=== PATIENT | female | born 1940 | race African-American/Black ===

== ENCOUNTER 2017-04-18 13:43 | Inpatient (IN) | payer OTHER, MEDICARE ==
--- NOTE | 2017-04-18 15:14 | PDOC ---
History of Present Illness - General Chief Complaint: Shortness of Breath Stated Complaint: SOB (PCP SENT) Time Seen by Provider: 04/18/17 15:00 - History of Present Illness Initial Comments: 04/18/17 16:02 The patient is a 76 year old female with a history of COPD, HTN who presents from her PCP for admission for COPD exacerbation. The patient reports a several week history of SOB and non-productive cough. She states that she was placed on azithromycin 1 week ago with no improvement in her symptoms prompting her PCP to send her in for admission. The patient reports using her inhaler on a regular basis with minimal improvement as well. She denies fevers, chills, chest pain, abdominal pain, nausea, vomiting, or changes with urination or bowel movements. She denies any increased leg swelling as well. Past History - Past Medical History Allergies/Adverse Reactions: Allergies Allergy/AdvReac Type Severity Reaction Status Date / Time No Known Allergies Allergy Verified 04/18/17 13:55 Home Medications: Ambulatory Orders Albuterol Sulfate Inhaler - [Ventolin Hfa Inhaler -] 1 - 2 inh PO Q4H PRN Amlodipine Besylate [Norvasc -] 10 mg PO DAILY 04/18/17 Benztropine Mesylate [Cogentin -] 1 mg PO DAILY 04/18/17 Diphenhydramine [Benadryl -] 50 mg PO HS 04/18/17 Fluticasone/Salmeterol [Advair 250-50 Diskus] 1 each IH DAILY 04/18/17 Gabapentin 400 mg PO DAILY 04/18/17 Icosapent Ethyl [Vascepa] 2 gm PO BID 04/18/17 Mirabegron [Myrbetriq] 25 mg PO DAILY 04/18/17 Risperidone [Risperdal] 2 mg PO DAILY 04/18/17 Tramadol HCl [Ultram -] 50 mg PO DAILY PRN 04/18/17 Asthma: Yes COPD: Yes HTN: Yes - Suicide/Smoking/Psychosocial Hx Smoking Status: Yes Smoking History: Never smoked Have you smoked in the past 12 months: No Number of Cigarettes Smoked Daily: 5 If you are a former smoker, when did you quit?: 2014 Information on smoking cessation initiated: No Hx Alcohol Use: No Drug/Substance Use Hx: No Substance Use Type: None Review of Systems - Review of Systems Comments:: 12/22/17 16:07 Constitutional: No fevers, chills, fatigue, malaise HEENT: No Rhinorrhea, nasal congestion, Cardiovascular: No chest pain, syncope, palpitations, lightheadedness Respiratory: SOB, cough. No Hemoptysis, Gastrointestinal: No Abdominal pain, Nausea, Vomiting, Constipation, Diarrhea, Melena Genitourinary: No Dysuria, Frequency, Urgency, Hesitancy, Hematuria, Flank pain Musculoskeletal: No Myalgia, arthralgia Skin: No rashes, bruising, pallor Neurologic: No Headache, Dizziness, Numbness, Weakness, or Tingling Psychiatric: No Hallucinations. No SI or HI *Physical Exam - Vital Signs Last Vital Signs Temp Pulse Resp BP Pulse Ox 98.1 F 87 16 116/64 93 L 04/18/17 13:55 04/18/17 13:55 04/18/17 13:55 04/18/17 13:55 04/18/17 13:55 - Physical Exam Comments: 04/18/17 16:08 General Appearance: Nourished. No Apparent Distress HEENT: EOMI, LAKISHA. No Pharyngeal Erythema, Tonsillar Exudate, Tonsillar Erythema Neck: No Cervical Lymphadenopathy Respiratory/Chest: Lungs Clear, Normal Breath Sounds. Diffuse expiratory wheezing noted on exam with bibasilar rales. Cardiovascular: Regular Rhythm, Regular Rate. No Murmur, Gallops, Rubs Gastrointestinal/Abdominal: Normal Bowel Sounds, Soft. No Guarding, Rebound, Tenderness Musculoskeletal: No CVA Tenderness Extremity: No lower extremity edema. Normal Capillary Refill Integumentary: Normal Color, Dry, Warm Neurologic: Fully Oriented, Alert, Normal Mood/Affect, Normal Response, ED Treatment Course - LABORATORY CBC & Chemistry Diagram: 04/18/17 15:59 04/18/17 15:59 Medical Decision Making - Medical Decision Making 04/18/17 16:13 The patient is a 76 year old female with a history of COPD, HTN who presents from her PCP for admission for COPD exacerbation. Differential includes but is not limited to: COPD exacerbation, pneumonia, CHF, infectious, metabolic derangement. Given the patient's history of COPD and physical exam, it is likely the patient's symptoms are due to a COPD exacerbation vs. pneumonia. We will obtain a cbc, cmp, bnp, UA, EKG, chest plain film to further evaluate for etiologies. We will treat with a duoneb, solumedrol, and ceftriaxone. We will continue to monitor and reassess. 04/18/17 18:26 CBC, cmp, BNP is unremarkable. The patient continues to report SOB with O2 sats in the low 90s. Chest plain film does not demonstrate evidence of a pneumonia as read by our radiologist. The patient's symptoms are likely due to a COPD exacerbation. The patient will require admission for further management. 04/18/17 20:00 Discussed the case with the hospitalist team who accepted the patient for admission. *DC/Admit/Observation/Transfer Diagnosis at time of Disposition: COPD exacerbation - Discharge Dispostion Condition at time of disposition: Guarded Admit: Yes - Referrals - Patient Instructions - Post Discharge Activity
[2017-04-18] MEDS ORDERED: ALBUTEROL SO4 2.5/IPRATROPIUM 0.5 INH SOL 3 ML VIAL.NEB. NEB ONE ×4 (15:16→20:59)
[2017-04-18] MEDS ORDERED: methylPREDNISolone NA SUCC 125 MG/2 ML VIAL IVPUSH ONE (15:32)
[2017-04-18] MEDS ORDERED: CEFTRIAXONE 1 GM in DEXTROSE 5%-WATER - 50 ML IVPB ONE (15:32)
[2017-04-18] MEDS ORDERED: methylPREDNISolone NA SUCC 125 MG/2 ML VIAL ONE (15:59)
[2017-04-18] MEDS ORDERED: CEFTRIAXONE 1 GM/50 ML BAG ONE (16:00)
--- NOTE | 2017-04-18 16:09 | PDOC ---
Attending Attestation - Resident Resident Name: ShabnamTravis - ED Attending Attestation I have performed the following: I have examined & evaluated the patient, The case was reviewed & discussed with the resident, I agree w/resident's findings & plan, Exceptions are as noted - HPI HPI: 04/18/17 16:20 76 year old female with history of COPD sent in by Dr. Moran for admission for persistent wheezing and r/o PNA. Pt has been having several weeks of coughing and wheezing despite numerous patient treatments. Has not gotten any better so came into ED. Denies chest pain. - Physicial Exam PE: 04/18/17 16:33 GENERAL: Awake, alert, and fully oriented, in no acute distress. HEAD: No signs of trauma EYES: PERRLA, EOMI, sclera anicteric, conjunctiva clear ENT: Auricles normal inspection, hearing grossly normal, nares patent, oropharynx clear without exudates. NECK: Normal ROM, supple, no lymphadenopathy, JVD, or masses LUNGS: Diffuse expiratory wheezing bilaterally. HEART: Regular rate and rhythm, normal S1 and S2, no murmurs, rubs or gallops ABDOMEN: Soft, nontender, normoactive bowel sounds. No guarding, no rebound. No masses EXTREMITIES: Normal range of motion, no edema. No clubbing or cyanosis. No cords, erythema, or tenderness NEUROLOGICAL: Cranial nerves II through XII grossly intact. Normal speech, normal gait SKIN: Warm, Dry, normal turgor, no rashes or lesions noted. - Medical Decision Making 04/18/17 16:34 Vital Signs Temp Pulse Resp BP Pulse Ox 98.1 F 87 16 116/64 93 L 04/18/17 13:55 04/18/17 13:55 04/18/17 13:55 04/18/17 13:55 04/18/17 13:55 patient most certainly in COPD exacerbation. I agree with r/o PNA and admission to the hospital. Chest xray labs, antibiotics Heart Score/ECG Review #1 ECG reviewed & interpreted by me at: 16:15 04/18/17 16:18 NSR 77, no std/ceci, RBBB, LAFB, QTC 475 msec
[2017-04-18 16:10] LABS: BASO # 0.1 # (0.1-1); BASO % 1.2 % (0-2.0); EOS # 0.5 # (0-4.5); LYMPH # 1.7 (8-40); MCH 30.3 pg (25.7-33.7); MCHC 32.5 g/dl (32.0-36.0); MEAN CELL VOLUME 93.3 fl (80-96); MEAN PLT VOLUME 8.4 fl (7.5-11.1); MONO # 0.5 # (3.8-10.2); NEUT # 2.3 # (42.8-82.8); NEUT % 45.5 % (42.8-82.8); RDW 14.6 % (11.6-15.6); WHITE BLOOD COUNT 5.1 K/mm3 (4.0-10.0)
[2017-04-18 17:48] LABS: ALBUMIN 3.6 g/dl (3.4-5.0); ANION GAP 6 (8-16); BILIRUBIN,TOTAL 0.4 mg/dL (0.2-1.0); CALCIUM 9.4 mg/dL (8.5-10.1); CO2 32 mmol/L (21-32); CREATININE 1.1 mg/dL (0.55-1.02); GLUCOSE,RANDOM 80 mg/dL (74-106); SGOT/AST 9 U/L (15-37); SGPT/ALT 17 U/L (12-78); TOT PROT 6.9 g/dl (6.4-8.2)
[2017-04-18 17:51] LABS: ALK PHOS 74 U/L (45-117); CPK 148 IU/L (26-192); TROPONIN I < 0.02 ng/ml (0.00-0.05)
[2017-04-18 21:05] LABS: PLATELET COUNT 162 K/MM3 (134-434)
--- NOTE | 2017-04-18 21:29 | HP ---
CHIEF COMPLAINT: SOB PCP: Dr. Justice Moran HISTORY OF PRESENT ILLNESS: This is a 76 y/o woman with a past medical history of COPD, Former Smoker. Who presents to the ED sent in by her PCP for admission for COPD Exacerbation. Patient reports having wheezing and a non-productive cough for "weeks". She reports recently completing Azithromycin for 1 week without relief. Patient reports [place] and during normal activities. Patient denies fever. chills. CP, palpitations, AP, N/V/D, dysuria. She reports being constipated x 3 days her- norm requiring mag citrate prn Patient reports having both Influenza and Pneumoccocal Vaccines. ER course was notable for: (1) BNP 800 (2) Chest Xray- no infiltrates (3) EKG- SR 77 bpm with PVCs, RBBB Recent Travel: None PAST MEDICAL HISTORY: COPD CHF Fibromyalgia PAST SURGICAL HISTORY: L-Knee R-Knee Social History: Smokin/2 PPD x 55+ yrs, last use 2015 Alcohol: None Drugs: None Family History: Mother- Alzheimer Grandparents- Breast Ca, Stomach Ca Allergies No Known Allergies Allergy (Verified 04/18/17 13:55) HOME MEDICATIONS: Home Medications Medication Instructions Recorded Albuterol Sulfate Inhaler - 1 - 2 inh PO Q4H PRN 04/18/17 [Ventolin Hfa Inhaler -] Amlodipine Besylate [Norvasc -] 10 mg PO DAILY 04/18/17 Benztropine Mesylate [Cogentin -] 1 mg PO DAILY 04/18/17 Diphenhydramine [Benadryl -] 50 mg PO HS 04/18/17 Fluticasone/Salmeterol [Advair 1 each IH DAILY 04/18/17 250-50 Diskus] Gabapentin 400 mg PO DAILY 04/18/17 Icosapent Ethyl [Vascepa] 2 gm PO BID 04/18/17 Mirabegron [Myrbetriq] 25 mg PO DAILY 04/18/17 Risperidone [Risperdal] 2 mg PO DAILY 04/18/17 Tramadol HCl [Ultram -] 50 mg PO DAILY PRN 04/18/17 REVIEW OF SYSTEMS CONSTITUTIONAL: loss of appetite Absent: fever, chills, diaphoresis, generalized weakness, malaise, weight change HEENT: Absent: rhinorrhea, nasal congestion, throat pain, throat swelling, difficulty swallowing, mouth swelling, ear pain, eye pain, visual changes CARDIOVASCULAR: Absent: chest pain, syncope, palpitations, irregular heart rate, lightheadedness , peripheral edema RESPIRATORY: cough, shortness of breath, dyspnea with exertion, wheezing Absent: stridor, hemoptysis GASTROINTESTINAL: Absent: abdominal pain, abdominal distension, nausea, vomiting, diarrhea, constipation, melena, hematochezia GENITOURINARY: Absent: dysuria, frequency, urgency, hesitancy, hematuria, flank pain, genital pain MUSCULOSKELETAL: Absent: myalgia, arthralgia, joint swelling, back pain, neck pain SKIN: Absent: rash, itching, pallor HEMATOLOGIC/IMMUNOLOGIC: Absent: easy bleeding, easy bruising, lymphadenopathy, frequent infections ENDOCRINE: Absent: unexplained weight gain, unexplained weight loss, heat intolerance, cold intolerance NEUROLOGIC: Absent: headache, focal weakness or paresthesias, dizziness, unsteady gait, seizure, mental status changes, bladder or bowel incontinence PSYCHIATRIC: Absent: anxiety, depression, suicidal or homicidal ideation, hallucinations. PHYSICAL EXAMINATION Vital Signs - 24 hr 04/18/17 04/18/17 13:55 21:02 Temperature 98.1 F 98.9 F Pulse Rate 87 Pulse Rate [ 83 Apical] Respiratory 16 20 Rate Blood Pressure 116/64 Blood Pressure 114/75 [Right Arm] O2 Sat by Pulse 93 L 91 L Oximetry (%) GENERAL: Awake, alert, and fully oriented, in no acute distress. HEAD: Normal with no signs of trauma. EYES: Pupils equal, round and reactive to light, extraocular movements intact, sclera anicteric, conjunctiva clear. No lid lag. EARS, NOSE, THROAT: Ears normal, nares patent, oropharynx clear without exudates. Moist mucous membranes. NECK: Normal range of motion, supple without lymphadenopathy, JVD, or masses. LUNGS: Coarse scattered wheeze, and rhonchi throughout. No accessory muscle use. HEART: Regular rate and rhythm, normal S1 and S2 without murmur, rub or gallop. ABDOMEN: Soft, nontender, not distended, normoactive bowel sounds, no guarding, no rebound, no masses. No hepatomegaly or splenomegaly. MUSCULOSKELETAL: Normal range of motion at all joints. No bony deformities or tenderness. No CVA tenderness. UPPER EXTREMITIES: 2+ pulses, warm, well-perfused. No cyanosis. No clubbing. No peripheral edema. LOWER EXTREMITIES: 2+ pulses, warm, well-perfused. No calf tenderness. No peripheral edema. NEUROLOGICAL: Cranial nerves II-XII intact. Normal speech. Gait not observed. PSYCHIATRIC: Cooperative. Good eye contact. Appropriate mood and affect. SKIN: Warm, dry, normal turgor, no rashes or lesions noted, normal capillary refill. Laboratory Results - last 24 hr 04/18/17 04/18/17 04/18/17 15:59 15:59 15:59 WBC 5.1 D RBC 4.42 Hgb 13.4 Hct 41.2 MCV 93.3 MCH 30.3 MCHC 32.5 RDW 14.6 Plt Count 162 MPV 8.4 Neutrophils % 45.5 D Lymphocytes % 34.3 Monocytes % 10.0 D Eosinophils % 9.0 H Basophils % 1.2 Sodium 138 Potassium 4.1 Chloride 100 Carbon Dioxide 32 Anion Gap 6 L BUN 7 Creatinine 1.1 H D Creat Clearance w eGFR 48.16 Random Glucose 80 Calcium 9.4 Total Bilirubin 0.4 D AST 9 L ALT 17 Alkaline Phosphatase 74 Creatine Kinase 148 Troponin I < 0.02 B-Natriuretic Peptide 893.40 H Cancelled Total Protein 6.9 Albumin 3.6 ASSESSMENT/PLAN: This is a 76 y/o woman with a PMHx of COPD, CHF, HTN. Admitted for COPD Exacerbation secondary to Failed Outpatient Therapy. Problems: 1. Acute COPD Exacerbation 2. CHF 3. HTN FEN - PO Fluids - Replete lytes - Low Na Diet Code Status: Full Code Dispo: Requires Inpatient Care Problem List - Problem (1) COPD exacerbation Assessment/Plan: - s/p Failed Out Patient Therapy - Continue Duonebs - Solumederol taper - Ceftriaxone given in ED - Will start Levofloxacin for pseudomonal coverage - O2 prn - Appreciate Pulm Consult - Monitor vitals - Monitor CBC, BMP - Continue home meds Code(s): J44.1 - CHRONIC OBSTRUCTIVE PULMONARY DISEASE W (ACUTE) EXACERBATION (2) HTN (hypertension) Assessment/Plan: - Controlled - Monitor BP - Continue home med - Monitor renal function Code(s): I10 - ESSENTIAL (PRIMARY) HYPERTENSION (3) Fibromyalgia Assessment/Plan: - Continue home meds Code(s): M79.7 - FIBROMYALGIA (4) Insomnia Assessment/Plan: - Continue Benadryl prn Code(s): G47.00 - INSOMNIA, UNSPECIFIED (5) DVT prophylaxis Assessment/Plan: - OOB - SCDs - Heparin SQ Code(s): [id number] - Visit type - Emergency Visit Emergency Visit: Yes ED Registration Date: 04/18/17 Care time: The patient presented to the Emergency Department on the above date and was hospitalized for further evaluation of their emergent condition. - New Patient This patient is new to me today: Yes Date on this admission: 04/18/17 - Critical Care Critical Care patient: No
[2017-04-18] MEDS ORDERED: ALBUTEROL SO4 2.5/IPRATROPIUM 0.5 INH SOL 3 ML VIAL.NEB. NEB PRN (23:39)
[2017-04-18 23:55] LABS: URINE APPEARANCE SLCLOUDY; URINE BILIRUBIN NEGATIVE (NEGATIVE); URINE BLOOD NEGATIVE (NEGATIVE); URINE COLOR DKYELLOW; URINE GLUCOSE (UA) NEGATIVE (NEGATIVE); URINE KETONE NEGATIVE (NEGATIVE); URINE NITRITE NEGATIVE (NEGATIVE); URINE PROTEIN NEGATIVE (NEGATIVE); URINE UROBILINOGEN NEGATIVE mg/dL (0.2-1.0)
[2017-04-19 00:30] VITALS: BMI 25.7
[2017-04-19 00:36] LABS: URINE LEUK ESTERASE 2+ (NEGATIVE)
[2017-04-19 00:53] LABS: URINE BACTERIA RARE /hpf (NONE SEEN); URINE HYALINE CAST 18 /lpf; URINE MUCUS RARE; URINE WBC 10 /hpf (3-5)
[2017-04-19] MEDS ORDERED: traMADol HCL 50 MG TABLET PO PRN (01:31)
[2017-04-19] MEDS ORDERED: risperiDONE 1 MG TABLET (FP) PO ONE (01:37)
[2017-04-19] MEDS ORDERED: diphenhydrAMINE HCL 25 MG CAPSULE (FP) PO ONE (01:39)
[2017-04-19] MEDS: methylPREDNISolone NA SUCC 40 MG/1 ML VIAL IVPUSH SCH ×4 (02:11→21:00)
[2017-04-19 08:44] LABS: BASO % 0.3 % (0-2.0); EOS % 0.1 % (0-4.5); LYMPH # 0.6 (8-40); MCH 29.7 pg (25.7-33.7); MCHC 31.9 g/dl (32.0-36.0); MEAN CELL VOLUME 93.1 fl (80-96); MEAN PLT VOLUME 8.8 fl (7.5-11.1); MONO # 0.1 # (3.8-10.2); NEUT % 85.6 % (42.8-82.8); PLATELET COUNT 157 K/MM3 (134-434); RDW 14.4 % (11.6-15.6); WHITE BLOOD COUNT 4.7 K/mm3 (4.0-10.0)
[2017-04-19 08:59] LABS: ANION GAP 7 (8-16); CALCIUM 9.3 mg/dL (8.5-10.1); CO2 28 mmol/L (21-32); CREATININE 0.9 mg/dL (0.55-1.02); GLUCOSE,RANDOM 138 mg/dL (74-106)
[2017-04-19] MEDS: HEPARIN NA (PORCINE) 5,000 UNITS/ML 1ML VIAL SQ SCH ×2 (10:03→21:01)
[2017-04-19] MEDS: LEVOFLOXACIN 500 MG IVPB 500 MG/100 ML BAG IVPB SCH (10:03)
[2017-04-19] MEDS: amLODIPine BESYLATE 10 MG TABLET (FP) PO SCH (10:03)
--- NOTE | 2017-04-19 12:08 | PN ---
Progress Note (short form) - Note Progress Note: PULMONARY CONSULTATION DICTATED 04/19/17 IMP DYSPNEA COPD EXACERBATION HTN FIBROMYALGIA ? H/O CHF PLAN IV STEROIDS INHALED BRONCHODILATORS O2 LOW DOSE CHEST CT PFTS OUTPATIENT DR CRISTINA Problem List - Problems (1) COPD exacerbation Code(s): J44.1 - CHRONIC OBSTRUCTIVE PULMONARY DISEASE W (ACUTE) EXACERBATION (2) Fibromyalgia Code(s): M79.7 - FIBROMYALGIA (3) HTN (hypertension) Code(s): I10 - ESSENTIAL (PRIMARY) HYPERTENSION (4) Shortness of breath Code(s): R06.02 - SHORTNESS OF BREATH
[2017-04-19 12:34] LABS: URINE LEUK ESTERASE 1+ (NEGATIVE)
[2017-04-19] MEDS: BUDESONIDE/FORMETEROL FUMARATE 160/4.5 mcg INHALER IH SCH ×2 (13:45→21:01)
[2017-04-19] MEDS: TIOTROPIUM BROMIDE 18 MCG/INH (DEVICE W/ 5 CAPSULES) IH SCH (13:46)
[2017-04-19] MEDS ORDERED: PT OWN MED DRAWER 7, Y5N ONE ×2 (14:10→20:48)
--- NOTE | 2017-04-19 14:59 | PN ---
Progress Note, Physician Chief Complaint: THIS IS MY FIRST ENCOUNTER WITH THIS PATIENT AWAKE ALERT SOB - Current Medication List Current Medications: Active Medications Amlodipine Besylate (Norvasc -) 10 mg PO DAILY [facility] Last Admin: 04/19/17 10:03 Dose: 10 mg Budesonide/Formoterol Fumarate (Symbicort 160/4.5mcg -) 2 puff IH BID [facility] Last Admin: 04/19/17 13:45 Dose: 2 inh Diphenhydramine HCl (Benadryl -) 50 mg PO HS JONAH Gabapentin (Neurontin -) 400 mg PO HS JONAH Heparin Sodium (Porcine) (Heparin -) 5,000 unit SQ BID [facility] Last Admin: 04/19/17 10:03 Dose: 5,000 unit Levofloxacin (Levaquin 500 Mg Premixed Ivpb -) 500 mg in 100 mls @ 100 mls/hr IVPB DAILY [facility] Last Admin: 04/19/17 10:03 Dose: 100 mls/hr Methylprednisolone Sodium Succinate (Solu-Medrol -) 40 mg IVPUSH Q6H-IV [facility] Last Admin: 04/19/17 09:59 Dose: 40 mg Risperidone (Risperdal -) 2 mg PO HS JONAH Tiotropium [place] (Spiriva -) 1 puff IH DAILY [facility] Last Admin: 04/19/17 13:46 Dose: 1 inh Tramadol HCl (Ultram -) 50 mg PO HS PRN PRN Reason: PAIN Stop: 04/20/17 01:30 - Objective Vital Signs: Vital Signs Temperature 98.2 F 04/19/17 09:55 Pulse Rate 89 04/19/17 09:55 Respiratory Rate 24 04/19/17 09:55 Blood Pressure 140/76 04/19/17 09:55 O2 Sat by Pulse Oximetry (%) 95 04/19/17 11:00 Constitutional: Yes: Mild Distress Eyes: Yes: WNL HENT: Yes: WNL Neck: Yes: WNL Cardiovascular: Yes: WNL Respiratory: Yes: Rhonchi, SOB Gastrointestinal: Yes: WNL Genitourinary: Yes: WNL, Incontinence Musculoskeletal: Yes: WNL Extremities: Yes: WNL Edema: No Peripheral Pulses WNL: Yes Integumentary: Yes: WNL Wound/Incision: Yes: Clean/Dry Neurological: Yes: Pre-Existing Deficit ...Motor Strength: LLE, RLE Psychiatric: Yes: Other Labs: CBC, BMP 04/19/17 08:00 04/19/17 08:00 Problem List - Problems (1) COPD exacerbation Code(s): J44.1 - CHRONIC OBSTRUCTIVE PULMONARY DISEASE W (ACUTE) EXACERBATION (2) DVT prophylaxis Code(s): [id number] - (3) Fibromyalgia Code(s): M79.7 - FIBROMYALGIA (4) HTN (hypertension) Code(s): I10 - ESSENTIAL (PRIMARY) HYPERTENSION (5) Insomnia Code(s): G47.00 - INSOMNIA, UNSPECIFIED (6) Shortness of breath Code(s): R06.02 - SHORTNESS OF BREATH Assessment/Plan IV STEROIDS NEBS OOB TO CHAIR DVT PROPHYLAXIS PULM EVAL
--- NOTE | 2017-04-19 16:28 | EKG ---
Test Reason : Blood Pressure : / mmHG Vent. Rate : 077 BPM Atrial Rate : 077 BPM P-R Int : 164 ms QRS Dur : 126 ms QT Int : 420 ms P-R-T Axes : 055 -79 -34 degrees QTc Int : 475 ms SINUS RHYTHM WITH PREMATURE SUPRAVENTRICULAR COMPLEXES RIGHT BUNDLE BRANCH BLOCK LEFT ANTERIOR FASCICULAR BLOCK BIFASCICULAR BLOCK ABNORMAL ECG WHEN COMPARED WITH ECG OF 19-AUG-2011 05:33, PREMATURE SUPRAVENTRICULAR COMPLEXES ARE NOW PRESENT Confirmed by MONIQUE AYALA MD ([id number]) on 04/19/2017 4:28:00 PM Referred By: Confirmed By:MONIQUE AYALA MD
[2017-04-19] MEDS: SOLIFENACIN SUCCINATE 5 MG TAB (FP) PO SCH (19:11)
[2017-04-19] MEDS: risperiDONE 1 MG TABLET (FP) PO SCH (21:01)
[2017-04-19] MEDS: diphenhydrAMINE HCL 25 MG CAPSULE (FP) PO SCH (21:01)
[2017-04-19] MEDS: GABAPENTIN 400 MG CAPSULE (FP) PO SCH (21:01)
[2017-04-19] MEDS: DICLOFENAC SODIUM 25 MG TABLET.DR PO SCH (21:02)
[2017-04-20] MEDS: methylPREDNISolone NA SUCC 40 MG/1 ML VIAL IVPUSH SCH ×3 (02:00→18:36)
[2017-04-20] MEDS ORDERED: PT OWN MED DRAWER 7, Y5N ONE ×2 (09:47→13:40)
[2017-04-20] MEDS: HEPARIN NA (PORCINE) 5,000 UNITS/ML 1ML VIAL SQ SCH ×2 (09:52→22:11)
[2017-04-20] MEDS: amLODIPine BESYLATE 10 MG TABLET (FP) PO SCH (09:52)
[2017-04-20] MEDS: LEVOFLOXACIN 500 MG IVPB 500 MG/100 ML BAG IVPB SCH (09:53)
[2017-04-20] MEDS: TIOTROPIUM BROMIDE 18 MCG/INH (DEVICE W/ 5 CAPSULES) IH SCH (09:53)
[2017-04-20] MEDS: BUDESONIDE/FORMETEROL FUMARATE 160/4.5 mcg INHALER IH SCH ×2 (09:53→22:12)
[2017-04-20] MEDS: DICLOFENAC SODIUM 25 MG TABLET.DR PO SCH ×4 (09:54→22:12)
--- NOTE | 2017-04-20 11:06 | PN ---
Progress Note, Physician History of Present Illness: pulmonary alert,feeling better,less dyspneic,-cp,-cough - Current Medication List Current Medications: Active Medications Amlodipine Besylate (Norvasc -) 10 mg PO DAILY [facility] Last Admin: 04/20/17 09:52 Dose: 10 mg Budesonide/Formoterol Fumarate (Symbicort 160/4.5mcg -) 2 puff IH BID [facility] Last Admin: 04/20/17 09:53 Dose: 2 inh Diclofenac Sodium (Voltaren -) 25 mg PO QID [facility] Last Admin: 04/20/17 09:54 Dose: 25 mg Diphenhydramine HCl (Benadryl -) 50 mg PO HS [facility] Last Admin: 04/19/17 21:01 Dose: 50 mg Gabapentin (Neurontin -) 400 mg PO HS [facility] Last Admin: 04/19/17 21:01 Dose: 400 mg Heparin Sodium (Porcine) (Heparin -) 5,000 unit SQ BID [facility] Last Admin: 04/20/17 09:52 Dose: 5,000 unit Levofloxacin (Levaquin 500 Mg Premixed Ivpb -) 500 mg in 100 mls @ 100 mls/hr IVPB DAILY [facility] Last Admin: 04/20/17 09:53 Dose: 100 mls/hr Methylprednisolone Sodium Succinate (Solu-Medrol -) 40 mg IVPUSH Q6H-IV [facility] Last Admin: 04/20/17 08:53 Dose: 40 mg Risperidone (Risperdal -) 2 mg PO HS [facility] Last Admin: 04/19/17 21:01 Dose: 2 mg Solifenacin (Vesicare -) 10 mg PO DAILY [facility] Last Admin: 04/19/17 19:11 Dose: 10 mg Tiotropium [place] (Spiriva -) 1 puff IH DAILY [facility] Last Admin: 04/20/17 09:53 Dose: 1 inh - Objective Vital Signs: Vital Signs Temperature 98.4 F 04/20/17 09:44 Pulse Rate 78 04/20/17 09:44 Respiratory Rate 20 04/20/17 09:44 Blood Pressure 122/82 04/20/17 09:44 O2 Sat by Pulse Oximetry (%) 95 04/19/17 11:00 Constitutional: Yes: Well Nourished, Calm Eyes: Yes: WNL HENT: Yes: WNL Neck: Yes: WNL Cardiovascular: Yes: Regular Rate and Rhythm, S1, S2 Respiratory: Yes: Diminished Gastrointestinal: Yes: Normal Bowel Sounds, Soft Extremities: Yes: WNL Edema: No Labs: CBC, BMP Problem List - Problems (1) COPD exacerbation Code(s): J44.1 - CHRONIC OBSTRUCTIVE PULMONARY DISEASE W (ACUTE) EXACERBATION (2) Fibromyalgia Code(s): M79.7 - FIBROMYALGIA (3) HTN (hypertension) Code(s): I10 - ESSENTIAL (PRIMARY) HYPERTENSION (4) Shortness of breath Code(s): R06.02 - SHORTNESS OF BREATH Assessment/Plan IMP DYSPNEA IMPROVING COPD EXACERBATION IMPROVING HTN FIBROMYALGIA ? H/O CHF PLAN STEROID TAPER INHALED BRONCHODILATORS O2 PFTS OUTPATIENT DR CRISTINA Problem List - Problems (1) COPD exacerbation Code(s): J44.1 - CHRONIC OBSTRUCTIVE PULMONARY DISEASE W (ACUTE) EXACERBATION (2) Fibromyalgia Code(s): M79.7 - FIBROMYALGIA (3) HTN (hypertension) Code(s): I10 - ESSENTIAL (PRIMARY) HYPERTENSION (4) Shortness of breath Code(s): R06.02 - SHORTNESS OF BREATH
[2017-04-20] MEDS: SOLIFENACIN SUCCINATE 5 MG TAB (FP) PO SCH (13:34)
--- NOTE | 2017-04-20 13:55 | CONS ---
DATE OF CONSULTATION: 04/19/2017 REFERRING PHYSICIAN: Nayeli Ramírez MD The patient is a 76-year-old black female with a past medical history of COPD, fibromyalgia, congestive heart failure, admitted to [facility] with complaints of increasing shortness of breath, cough and bronchospasm. The patient states that symptoms started a couple of weeks ago; at the time, she had a cough which was productive of clear sputum associated with shortness of breath and wheezing. She was seen by her PMD who prescribed Zithromax. Despite these measures, she became progressively more short of breath with exertion at which time was sent to the emergency room. Denies any fevers, chills, weight loss, or night sweats. Denies hemoptysis. In the emergency room, she was treated with inhaled bronchodilators, supplemental O2, and steroids clinical response, transferred up to the medical floor for further management. She has a history of tobacco use, approximately 1/2 to 1 pack per day for greater than 50 years. She quit approximately 1 year ago. She denies any history of occupational exposure to chemicals or fumes. There is no history of DVT or PE in the past. There is no history of recent travel. PAST MEDICAL HISTORY: Again, includes COPD, fibromyalgia, questionable CHF. REVIEW OF SYSTEMS: Positive cough, positive shortness of breath, positive wheezing. No chest pain, no palpitations, no hemoptysis, no abdominal pain, no fevers, no chills. CURRENT MEDICATIONS: Include Solu-Medrol 40 q.6, Levaquin, heparin, Neurontin, Risperdal, DuoNeb, Norvasc, Benadryl, and Ultram. PHYSICAL EXAMINATION: General: The patient is an elderly black female, thin, well developed, awake, alert, no acute distress. Vital Signs: She is currently afebrile. Blood pressure is 140/76, respiratory rate is 24, O2 saturation is 97% on 2 L. HEENT: Normocephalic, atraumatic. Neck: Supple. Heart: Regular with S1, S2. Chest: Diffuse bilateral expiratory and inspiratory wheezes. Abdomen: Soft. Bowel sounds are positive. Extremities: No cyanosis or edema. LABORATORIES: WBC is 12.7, hemoglobin 13.3, hematocrit 41.6 with a platelet count of 157,000. BUN is 10, creatinine 0.9. BNP is 893. Chest x-ray reveals no infiltrates, no effusions. IMPRESSION: 1. Chronic obstructive pulmonary disease with acute exacerbation. 2. History of fibromyalgia. 3. History of congestive heart failure. PLAN: IV steroids, inhaled bronchodilators, supplemental O2. Sputum culture and sensitivity, low-dose CT scan, lung cancer screening in view of longstanding history of tobacco use. Also, pulmonary function tests as outpatient. DARBY CRISTINA M.D. [id number]
--- NOTE | 2017-04-20 15:16 | PN ---
Progress Note, Physician Chief Complaint: AWAKE ALERT FEELING BETTER NO SOB COUGH RESOLVED - Current Medication List Current Medications: Active Medications Amlodipine Besylate (Norvasc -) 10 mg PO DAILY [facility] Last Admin: 04/20/17 09:52 Dose: 10 mg Budesonide/Formoterol Fumarate (Symbicort 160/4.5mcg -) 2 puff IH BID [facility] Last Admin: 04/20/17 09:53 Dose: 2 inh Diclofenac Sodium (Voltaren -) 25 mg PO QID [facility] Last Admin: 04/20/17 13:51 Dose: 25 mg Diphenhydramine HCl (Benadryl -) 50 mg PO HS [facility] Last Admin: 04/19/17 21:01 Dose: 50 mg Gabapentin (Neurontin -) 400 mg PO HS [facility] Last Admin: 04/19/17 21:01 Dose: 400 mg Heparin Sodium (Porcine) (Heparin -) 5,000 unit SQ BID [facility] Last Admin: 04/20/17 09:52 Dose: 5,000 unit Levofloxacin (Levaquin 500 Mg Premixed Ivpb -) 500 mg in 100 mls @ 100 mls/hr IVPB DAILY [facility] Last Admin: 04/20/17 09:53 Dose: 100 mls/hr Methylprednisolone Sodium Succinate (Solu-Medrol -) 40 mg IVPUSH Q8H-IV JONAH Risperidone (Risperdal -) 2 mg PO HS [facility] Last Admin: 04/19/17 21:01 Dose: 2 mg Solifenacin (Vesicare -) 10 mg PO DAILY [facility] Last Admin: 04/20/17 13:34 Dose: 10 mg Tiotropium [place] (Spiriva -) 1 puff IH DAILY [facility] Last Admin: 04/20/17 09:53 Dose: 1 inh - Objective Vital Signs: Vital Signs Temperature 98.2 F 04/20/17 14:56 Pulse Rate 82 04/20/17 14:56 Respiratory Rate 22 04/20/17 14:56 Blood Pressure 126/76 04/20/17 14:56 O2 Sat by Pulse Oximetry (%) 96 04/20/17 10:00 Constitutional: Yes: No Distress Eyes: Yes: WNL HENT: Yes: WNL Neck: Yes: WNL Cardiovascular: Yes: WNL Respiratory: Yes: WNL Gastrointestinal: Yes: WNL Genitourinary: Yes: WNL Musculoskeletal: Yes: WNL Extremities: Yes: WNL Edema: No Peripheral Pulses WNL: Yes Integumentary: Yes: WNL Wound/Incision: Yes: Clean/Dry Neurological: Yes: WNL ...Motor Strength: WNL Psychiatric: Yes: WNL Labs: CBC, BMP 04/19/17 08:00 04/19/17 08:00 Problem List - Problems (1) COPD exacerbation Code(s): J44.1 - CHRONIC OBSTRUCTIVE PULMONARY DISEASE W (ACUTE) EXACERBATION (2) DVT prophylaxis Code(s): NON8430 - (3) Fibromyalgia Code(s): M79.7 - FIBROMYALGIA (4) HTN (hypertension) Code(s): I10 - ESSENTIAL (PRIMARY) HYPERTENSION (5) Insomnia Code(s): G47.00 - INSOMNIA, UNSPECIFIED (6) Shortness of breath Code(s): R06.02 - SHORTNESS OF BREATH Assessment/Plan IV STEROIDS NEBS OOB TO CHAIR DVT PROPHYLAXIS PULM EVAL DC PLANNING TOMORROW
[2017-04-20] MEDS ORDERED: SODIUM CHLORIDE NASAL SPRAY 44 ML BOTTLE NS PRN (15:23)
[2017-04-20] MEDS: BACITRACIN 15 GM TUBE TOPICAL OINTMENT TP SCH (16:16)
[2017-04-20] MEDS: diphenhydrAMINE HCL 25 MG CAPSULE (FP) PO SCH (22:11)
[2017-04-20] MEDS: risperiDONE 1 MG TABLET (FP) PO SCH (22:11)
[2017-04-20] MEDS: GABAPENTIN 400 MG CAPSULE (FP) PO SCH (22:11)
[2017-04-21] MEDS: methylPREDNISolone NA SUCC 40 MG/1 ML VIAL IVPUSH SCH ×2 (02:00→09:18)
[2017-04-21] MEDS ORDERED: PT OWN MED DRAWER 7, Y5N ONE (09:13)
[2017-04-21] MEDS: amLODIPine BESYLATE 10 MG TABLET (FP) PO SCH (09:18)
[2017-04-21] MEDS: LEVOFLOXACIN 500 MG IVPB 500 MG/100 ML BAG IVPB SCH (09:18)
[2017-04-21] MEDS: HEPARIN NA (PORCINE) 5,000 UNITS/ML 1ML VIAL SQ SCH (09:18)
[2017-04-21] MEDS: SOLIFENACIN SUCCINATE 5 MG TAB (FP) PO SCH (09:18)
[2017-04-21] MEDS: BACITRACIN 15 GM TUBE TOPICAL OINTMENT TP SCH (09:19)
[2017-04-21] MEDS: BUDESONIDE/FORMETEROL FUMARATE 160/4.5 mcg INHALER IH SCH (09:21)
[2017-04-21] MEDS: DICLOFENAC SODIUM 25 MG TABLET.DR PO SCH (09:21)
[2017-04-21] MEDS: TIOTROPIUM BROMIDE 18 MCG/INH (DEVICE W/ 5 CAPSULES) IH SCH (09:21)
[2017-04-21 09:40] VITALS: BP 131/71; PULSE 82; TEMP 98.2
--- NOTE | 2017-04-21 11:25 | DS ---
Physical Examination Vital Signs: Vital Signs Temperature 98.2 F 04/21/17 09:30 Pulse Rate 82 04/21/17 09:30 Respiratory Rate 18 04/21/17 09:30 Blood Pressure 131/71 04/21/17 09:30 O2 Sat by Pulse Oximetry (%) 100 04/21/17 09:00 Findings/Remarks: feels better Constitutional: Yes: No Distress Eyes: Yes: WNL HENT: Yes: WNL Neck: Yes: WNL Cardiovascular: Yes: WNL Respiratory: Yes: WNL Gastrointestinal: Yes: WNL Renal/: Yes: WNL Musculoskeletal: Yes: WNL Extremities: Yes: WNL Edema: No Peripheral Pulses WNL: Yes Integumentary: Yes: WNL Wound/Incision: Yes: Clean/Dry Neurological: Yes: WNL ...Motor Strength: WNL Psychiatric: Yes: Other Labs: CBC, BMP 04/19/17 08:00 04/19/17 08:00 Discharge Summary Reason For Visit: OBSTRUCTIVE CHRONIC BRONCHITIS WITH EXACERBATION Current Active Problems COPD exacerbation (Acute) DVT prophylaxis (Acute) Fibromyalgia (Acute) HTN (hypertension) (Acute) Insomnia (Acute) Shortness of breath (Acute) Procedures: Principal: ct chest Hospital Course: admitted acute on chronic copd, lung nodules, treated iv steroids and abx, will need repeat ct chest 6 months Condition: Stable - Instructions Diet, Activity, Other Instructions: see dr moran in [address] of the chest lungs in 6 months to monitor lung nodules Referrals: Justice Moran MD [Primary Care Provider] - Disposition: HOME - Home Medications Comprehensive Discharge Medication List: Ambulatory Orders Albuterol Sulfate Inhaler - [Ventolin HFA Inhaler -] 1 - 2 inh PO Q4H PRN Amlodipine Besylate [Norvasc -] 10 mg PO DAILY 04/18/17 Diphenhydramine [Benadryl Capsule -] 50 mg PO HS 04/18/17 Gabapentin 400 mg PO DAILY 04/18/17 Icosapent Ethyl [Vascepa] 2 gm PO BID 04/18/17 Mirabegron [Myrbetriq] 25 mg PO DAILY 04/18/17 Risperidone [Risperdal -] 2 mg PO DAILY 04/18/17 Tramadol HCl [Ultram -] 50 mg PO DAILY PRN 04/18/17 Budesonide/Formeterol Fumarate [SYMBICORT 160/4.5mcg -] 2 puff IH BID #1 inhaler 04/21/17 Diclofenac Sodium [Voltaren -] 25 mg PO QID tablet. 04/21/17 Levofloxacin [Levaquin] 500 mg PO DAILY #4 tablet 04/21/17 Prednisone [Deltasone] 20 mg PO DAILY #30 tablet 04/21/17 Sodium Chloride Nasal [place] [[place] Nasal [place] -] 2 spray NS BID PRN #1 spray 04/21/17 Tiotropium [place] [Spiriva] 1 puff IH DAILY #1 inh 04/21/17
== END 2017-04-21 12:50 | disposition home or self-care (01) | DRG 191 ==
LOC: JER 13:43 → JERBED 20:24 → J5S 23:32
PROVIDERS: ADMIT Internal Medicine; ATTEND Family Medicine
DX: J44.1 Chronic obstructive pulmonary disease with (acute) exacerbation (principal); I45.2 Bifascicular block; M79.7 Fibromyalgia; I11.0 Hypertensive heart disease with heart failure; I50.9 Heart failure, unspecified; G47.00 Insomnia, unspecified
CPT/HCPCS: 36415; 71020-TC; 71250-TC; 80048; 80053; 81003; 81015; 82550; 83880; 84484; 85025; 87040; 93005; 93010; 94640; 99284-25; J1644; J2794

== ENCOUNTER 2017-10-01 11:32 | Emergency (ER) | payer OTHER, MEDICARE ==
[2017-10-01 11:53] VITALS: TEMP 97.4; BMI 26.6
--- NOTE | 2017-10-01 11:58 | PDOC ---
History of Present Illness - General History Source: Patient Exam Limitations: No Limitations - History of Present Illness Initial Comments: 10/01/17 12:49 The patient is a 76-year-old female, with a significant past medical history of asthma, COPD, and HTN, who presents to the ED with headache and neck pain today. The patient describes the headache as sharp in sensation and 9/10 in severity. After the onset the pain she reports becoming weak and dizzy. Patient states she had to lie down on the floor but she denies any loss of consciousness or head trauma. She denies experiencing a prior episode. The patients symptoms lasted a few minutes before resolving on their own. The patient denies any fever, chills, nausea, vomiting, diarrhea, or abdominal pain. She denies any shortness of breath, palpitations, or chest pain. PCP: Dr. Moran Allergies: NKA <Flores Laurent - Last Filed: 10/01/17 12:55> - General History Source: Patient Exam Limitations: No Limitations <Marie Edwards - Last Filed: 10/03/17 08:06> - General Chief Complaint: Syncope/Near Syncope Stated Complaint: SYNCOPE Time Seen by Provider: 10/01/17 11:55 Past History <Flores Laurent - Last Filed: 10/01/17 12:55> - Past Medical History Asthma: Yes COPD: Yes HTN: Yes - Suicide/Smoking/Psychosocial Hx Smoking Status: Yes Smoking History: Former smoker Have you smoked in the past 12 months: No Number of Cigarettes Smoked Daily: 5 If you are a former smoker, when did you quit?: 2014 Information on smoking cessation initiated: No Hx Alcohol Use: No Drug/Substance Use Hx: No Substance Use Type: None <Marie Edwards - Last Filed: 10/03/17 08:06> - Past Medical History Allergies/Adverse Reactions: Allergies Allergy/AdvReac Type Severity Reaction Status Date / Time No Known Allergies Allergy Verified 04/18/17 13:55 Home Medications: Ambulatory Orders Albuterol Sulfate Inhaler - [Ventolin HFA Inhaler -] 1 - 2 inh PO Q4H PRN Amlodipine Besylate [Norvasc -] 10 mg PO DAILY 04/18/17 Diphenhydramine [Benadryl Capsule -] 50 mg PO HS 04/18/17 Gabapentin 400 mg PO DAILY 04/18/17 Icosapent Ethyl [Vascepa] 2 gm PO BID 04/18/17 Mirabegron [Myrbetriq] 25 mg PO DAILY 04/18/17 Risperidone [Risperdal -] 2 mg PO DAILY 04/18/17 traMADol HCL [Ultram -] 50 mg PO DAILY PRN 04/18/17 Budesonide/Formeterol Fumarate [SYMBICORT 160/4.5mcg -] 2 puff IH BID #1 inhaler 04/21/17 Diclofenac Sodium [Voltaren -] 25 mg PO QID tablet. 04/21/17 Levofloxacin [Levaquin] 500 mg PO DAILY #4 tablet 04/21/17 Prednisone [Deltasone] 20 mg PO DAILY #30 tablet 04/21/17 Sodium Chloride Nasal [place] [[place] Nasal [place] -] 2 spray NS BID PRN #1 spray 04/21/17 Tiotropium [place] [Spiriva] 1 puff IH DAILY #1 inh 04/21/17 Review of Systems - Review of Systems Able to Perform ROS?: Yes Comments:: 10/01/17 12:55 GENERAL/CONSTITUTIONAL: (+)Weakness. No: fever, chills, loss of appetite. HEAD, EYES, EARS, NOSE AND THROAT: No: change in vision, ear pain, discharge, sore throat, throat swelling. CARDIOVASCULAR: No: chest pain, lightheadedness, palpitations, syncope RESPIRATORY: No: cough, shortness of breath, wheezing, hemoptysis, stridor. GASTROINTESTINAL: No: nausea, vomiting, abdominal cramping, diarrhea, rectal bleeding, constipation. GENITOURINARY: No: dysuria, hematuria, frequency, urgency, flank pain. MUSCULOSKELETAL:(+)Neck pain. No: back pain, joint pain, muscle swelling or pain SKIN AND BREASTS: No: lesions, pallor, rash or easy bruising. NEUROLOGIC: (+)Headache, dizziness. No: vertigo, paresthesias, weakness ENDOCRINE: No: unexplained weight gain or loss HEMATOLOGIC/LYMPHATIC: No: anemia, easy bleeding, swelling nodes <Flores Laurent - Last Filed: 10/01/17 12:55> *Physical Exam - Vital Signs Last Vital Signs Temp Pulse Resp BP Pulse Ox 97.4 F L 68 18 107/63 96 10/01/17 11:43 10/01/17 11:43 10/01/17 11:43 10/01/17 11:43 10/01/17 11:43 - Physical Exam Comments: 10/01/17 12:56 GENERAL: The patient is in no acute distress. HEAD: Normal with no signs of trauma. EYES: PERRLA, EOMI, sclera anicteric, conjunctiva clear. ENT: Ears normal, nares patent, oropharynx clear without exudates. Moist mucous membranes. NECK: Normal range of motion, supple without lymphadenopathy, JVD, or masses. LUNGS: Breath sounds equal, clear to auscultation bilaterally. No wheezes, and no crackles. HEART:Regular rate and rhythm, normal S1 and S2 without murmur, rub or gallop. ABDOMEN: Soft, nontender, normoactive bowel sounds. No guarding, no rebound. EXTREMITIES: Normal range of motion, no edema. No clubbing or cyanosis. No erythema, or tenderness. NEUROLOGICAL: Cranial nerves II through XII grossly intact. Normal speech. No focal neurological deficits. MUSCULOSKELETAL: Back non-tender to palpation, no CVA tenderness SKIN: Warm, Dry, normal turgor, no rashes or lesions noted. <Flores Laurent - Last Filed: 10/01/17 12:55> - Vital Signs Last Vital Signs Temp Pulse Resp BP Pulse Ox 97.4 F L 68 18 107/63 96 10/01/17 11:43 10/01/17 11:43 10/01/17 11:43 10/01/17 11:43 10/01/17 11:43 <Marie Edwards - Last Filed: 10/03/17 08:06> ED Treatment Course - LABORATORY CBC & Chemistry Diagram: 10/01/17 12:31 10/01/17 12:31 - ADDITIONAL ORDERS Additional order review: 10/01/17 12:31 RBC 4.18 MCV 92.7 MCHC 33.7 RDW 14.0 MPV 8.6 Neutrophils % 50.2 D Lymphocytes % 33.6 D Monocytes % 11.7 H D Eosinophils % 3.6 D Basophils % 0.9 <Flores Laurent - Last Filed: 10/01/17 12:55> - LABORATORY CBC & Chemistry Diagram: 10/01/17 12:31 10/01/17 12:31 <Marie Edwards - Last Filed: 10/03/17 08:06> Medical Decision Making - Medical Decision Making 10/01/17 12:19 EKG: SR rate of 63 bpm, Left axis deviation, RBBB, t wave inversions v4-v6, II, III, avF, no ST elevations or depressions 10/01/17 12:30 Ms Gerard is a 76 yo F with a h/o COPD and HTN She presents to the ER with a complaint of severe head and neck pain, described as sharp, rated 9/10 which happened just prior to arrival Pt noted after this, that she had weakness and dizziness no head trauma No LOC No prior episoded like this Symptoms lasted several minutes and self resolved Pt is now completely headache free 10/01/17 12:34 ON examination: C spine, base of skull tender to palpation RRR Rhoncherous breath sounds, expiratory wheezing particularly on right side No abd tenderness Will do: Labs CT head and C spine Pt denies pain at this time, does not need pain medications 10/01/17 13:28 Laboratory Tests 10/01/17 10/01/17 10/01/17 12:31 12:31 12:31 WBC 3.9 L Hgb 13.1 Hct 38.7 Plt Count 172 PT with INR 11.90 INR 1.05 Sodium 138 Potassium 3.6 Chloride 104 Carbon Dioxide 28 BUN 17 Creatinine 0.9 Random Glucose 90 Creatine Kinase 81 Troponin I < 0.02 B-Natriuretic Peptide 356.[address] do not demonstrate acute findings Pt not willing to stay in the hospital, her friend repeatedly presents to the nurses station requesting to leave I have explained my concern given her symptoms She would rather leave the hospital She understands that she is leaving against my medical advice Note: The patient insists on leaving the emergency dept and is signing out against medical advice. The patient understands the risks and complications that may result from the refusal of medical care and admission which includes and permanent disability. The patient has the mental capacity of understanding the risks of refusing care and is capable of making an informed decision. The patient was instructed to return to the emergency department should she change her mind regarding medical care or should her condition worsen. The patient signed the Against Medical Advice form. <Marie Edwards - Last Filed: 10/03/17 08:06> *DC/Admit/Observation/Transfer - Attestations Scribe Attestion: 10/01/17 12:57 Documentation prepared by Flores Laurent, acting as medical imaging director for Marie Edwards MD. <Flores Laurent - Last Filed: 10/01/17 12:55> - Discharge Dispostion Decision to Admit order: No <Marie Edwards - Last Filed: 10/03/17 08:06> Diagnosis at time of Disposition: Pre-syncope - Discharge Dispostion Disposition: AGAINST MEDICAL ADVICE Condition at time of disposition: Fair - Referrals Referrals: Justice Moran MD [Staff Physician] - - Patient Instructions Printed Discharge Instructions: DI for Syncope in Adults (Fainting) Additional Instructions: Ms Gerard Thank you for coming in to the ER today Please return to the ER for any new symptoms - headache, altered mental status, chest pain, shortness of breath, palpitations
[2017-10-01] MEDS ORDERED: ALBUTEROL SO4 2.5/IPRATROPIUM 0.5 INH SOL 3 ML VIAL.NEB. NEB ONE ×2 (12:32→13:43)
[2017-10-01 12:39] LABS: BASO % 0.9 % (0-2.0); EOS % 3.6 % (0-4.5); HEMATOCRIT 38.7 % (32.4-45.2); HEMOGLOBIN 13.1 GM/dL (10.7-15.3); LYMPH % 33.6 % (8-40); MCH 31.3 pg (25.7-33.7); MCHC 33.7 g/dl (32.0-36.0); MEAN CELL VOLUME 92.7 fl (80-96); MEAN PLT VOLUME 8.6 fl (7.5-11.1); MONO % 11.7 % (3.8-10.2); NEUT % 50.2 % (42.8-82.8); PLATELET COUNT 172 K/MM3 (134-434); RBC 4.18 M/mm3 (3.60-5.2); WHITE BLOOD COUNT 3.9 K/mm3 (4.0-10.0)
[2017-10-01 12:52] LABS: INR 1.05 (0.82-1.09); PROTHROMBIN TIME (PATIENT) 11.9 SEC (9.7-13.0)
[2017-10-01 13:05] LABS: BLOOD UREA NITROGEN 17 mg/dL (7-18); CREATININE 0.9 mg/dL (0.55-1.02); GLUCOSE,RANDOM 90 mg/dL (74-106)
[2017-10-01 13:06] LABS: ALBUMIN 3.6 g/dl (3.4-5.0); ANION GAP 6 (8-16); BILIRUBIN,TOTAL 0.5 mg/dL (0.2-1.0); CALCIUM 8.9 mg/dL (8.5-10.1); CHLORIDE 104 mmol/L (98-107); CO2 28 mmol/L (21-32); MAGNESIUM 2.2 mg/dL (1.8-2.4); POTASSIUM 3.6 mmol/L (3.5-5.1); SGOT/AST 14 U/L (15-37); SGPT/ALT 26 U/L (12-78); SODIUM 138 mmol/L (136-145); TOT PROT 6.5 g/dl (6.4-8.2)
[2017-10-01 13:09] LABS: ALK PHOS 66 U/L (45-117); N-TERMINAL BNP 356.44 pg/ml (5-450)
[2017-10-01 14:50] VITALS: BP 122/62; PULSE 76
--- NOTE | 2017-10-01 14:52 | EKG ---
Test Reason : Blood Pressure : / mmHG Vent. Rate : 063 BPM Atrial Rate : 063 BPM P-R Int : 164 ms QRS Dur : 138 ms QT Int : 452 ms P-R-T Axes : 051 -53 -38 degrees QTc Int : 462 ms SINUS RHYTHM WITH PREMATURE ATRIAL COMPLEXES RIGHT BUNDLE BRANCH BLOCK LEFT ANTERIOR FASCICULAR BLOCK BIFASCICULAR BLOCK T WAVE ABNORMALITY, CONSIDER INFEROLATERAL ISCHEMIA ABNORMAL ECG WHEN COMPARED WITH ECG OF 18-APR-2017 16:13, NO SIGNIFICANT CHANGE WAS FOUND Confirmed by GABRIEL SELF MD ([id number]) on 10/01/2017 2:52:00 PM Referred By: Confirmed By:GABRIEL SELF MD
== END 2017-10-01 14:52 | disposition left against medical advice (07) ==
LOC: JER 11:32
PROC: 3E0F7GC Introduction of Other Therapeutic Substance into Respiratory Tract, Via Natural or Artificial Opening (ICD-10-PCS; principal; 2017-10-01)
DX: R55 Syncope and collapse (principal); J44.9 Chronic obstructive pulmonary disease, unspecified; I10 Essential (primary) hypertension; F17.210 Nicotine dependence, cigarettes, uncomplicated
CPT/HCPCS: 36415; 70450-TC; 71045-TC-FY; 72125-TC; 80053; 82550; 83735; 83880; 84484; 85025; 85610; 86850; 86900; 86901; 93005; 93010; 99285-25; J7620

== ENCOUNTER 2018-08-05 09:47 | Inpatient (IN) | payer OTHER, MEDICARE ==
--- NOTE | 2018-08-05 10:08 | PDOC ---
History of Present Illness - General History Source: Patient Exam Limitations: No Limitations - History of Present Illness Initial Comments: 08/05/18 10:45 The patient is a 77-year-old female, with a past medical history of asthma, COPD (not on home O2), who presents to the ED with 1 day of shortness of breath and cough. Patient states that her cough is productive of thick, clear sputum. She reports having a nebulizer machine at home, but states that she ran out of the inhalation fluid. The patient also states that she recently finished a 1 week course of Levaquin for a respiratory infection. The medication was prescribed to her by her PCP (Dr. Justice Moran) and was to be taken PO once daily for 7 days. Patient has an upcoming appointment with her [employer] in August. The patient denies any fever, chills, nausea, vomiting, diarrhea, constipation or abdominal pain. Denies any chest pain or palpitations. Denies any recent sick contacts or recent travel. Allergies: NKA Surgical History: None reported Social History: Denies tobacco, alcohol, or drug use. PCP: Dr. Justice Moran <Flores Laurent - Last Filed: 08/05/18 14:27> <Paolo Steele - Last Filed: 08/05/18 15:14> - General Chief Complaint: Shortness of Breath Stated Complaint: SOB COPD Time Seen by Provider: 08/05/18 10:08 Past History <Flores Laurent - Last Filed: 08/05/18 14:27> - Past Medical History Asthma: Yes COPD: Yes HTN: Yes - Immunization History Immunization Up to Date: No - Suicide/Smoking/Psychosocial Hx Smoking Status: Yes Smoking History: Never smoked Have you smoked in the past 12 months: No Number of Cigarettes Smoked Daily: 5 If you are a former smoker, when did you quit?: 2014 Information on smoking cessation initiated: No Hx Alcohol Use: No Drug/Substance Use Hx: No Substance Use Type: None <Paolo Steele - Last Filed: 08/05/18 15:14> - Past Medical History Allergies/Adverse Reactions: Allergies Allergy/AdvReac Type Severity Reaction Status Date / Time No Known Allergies Allergy Verified 04/18/17 13:55 Home Medications: Ambulatory Orders Albuterol Sulfate Inhaler - [Ventolin Hfa Inhaler -] 1 - 2 inh PO TID PRN Amlodipine Besylate [Norvasc -] 10 mg PO DAILY 08/05/18 Azelastine HCl 137 mcg NS BID 08/05/18 Benztropine Mesylate [Cogentin -] 1 mg PO DAILY 08/05/18 Dextromethorphan Polistirex 60 mg PO BID PRN 08/05/18 Diclofenac Sodium [Diclo Gel] 1 each TP QID 08/05/18 Hydrochlorothiazide [Hctz -] 25 mg PO DAILY 08/05/18 Ipratropium/Albuterol Sulfate [Iprat-Albut 0.5-3(2.5) mg/3 ml] 3 ml IH Q4HWA PRN 08/05/18 Mirabegron [Myrbetriq] 25 mg PO DAILY 08/05/18 Risperidone [Risperdal] 2 mg PO DAILY 08/05/18 Topiramate 25 mg PO DAILY 08/05/18 Review of Systems - Review of Systems Able to Perform ROS?: Yes Comments:: 08/05/18 10:46 CONSTITUTIONAL: No fever, no chills, no fatigue EYES: No visual changes ENT: No ear pain, no sore throat CARDIOVASCULAR: No chest pain, no palpitations RESPIRATORY: (+)Cough, shortness of breath. GI: No abdominal pain, no nausea, no vomiting, no constipation, no diarrhea GENITOURINARY: No dysuria, no frequency, no hematuria MUSKULOSKELETAL: No back pain, no joint pain, no myalgias SKIN: No rash NEURO: No headache <Flores Laurent - Last Filed: 08/05/18 14:27> *Physical Exam - Vital Signs Last Vital Signs Temp Pulse Resp BP Pulse Ox 97.7 F 87 16 125/79 08/05/18 09:54 08/05/18 09:54 08/05/18 09:54 08/05/18 09:54 - Physical Exam Comments: 08/05/18 10:47 CONSTITUTIONAL: Well-appearing; well-nourished; in no apparent distress HEAD: Normocephalic; atraumatic EYES: PERRL; EOM intact ENMT: External appears normal; normal oropharynx NECK: Supple; non-tender; no cervical lymphadenopathy CARD: Normal S1, S2; no murmurs, rubs, or gallops RESP: (+)Decreased air entry bilaterally, wheezing, and rhonchi. Normal chest excursion with respiration; no rales ABD: Soft, non-distended; non-tender; no palpable organomegaly, no palpable hernias EXT: Normal ROM in all four extremities; non-tender to palpation; distal pulses intact SKIN: Warm, dry, no rash NEURO: No focal neurological deficiencies. <Flores Laurent - Last Filed: 08/05/18 14:27> - Vital Signs Last Vital Signs Temp Pulse Resp BP Pulse Ox 97.7 F 87 16 125/79 08/05/18 09:54 08/05/18 09:54 08/05/18 09:54 08/05/18 09:54 <Paolo Steele - Last Filed: 08/05/18 15:14> ED Treatment Course - LABORATORY CBC & Chemistry Diagram: 08/05/18 10:27 08/05/18 10:27 - RADIOLOGY Radiology Studies Ordered: 08/05/18 13:35 Chest X-Ray was reviewed by Dr. Steele and over-read by Radiology. Impression: AP view of the chest reveals a large heart, sclerotic knob, prominent javid and no sign of an acute chest process. Since 10/01/2017, there is no change of an adverse nature. The bones and soft tissues are intact. <Flores Laurent - Last Filed: 08/05/18 14:27> - LABORATORY CBC & Chemistry Diagram: 08/05/18 10:27 08/05/18 10:27 <Paolo Steele - Last Filed: 08/05/18 15:14> Medical Decision Making - Medical Decision Making 08/05/18 12:11 Patient is 77-year-old female with history of COPD, history of smoking in the past, hypertension, presents with signs and symptoms of acute COPD exacerbation. Patient is noted to be tachypneic and dyspneic with oxygen saturation on room air of 70-75%, improving to 90-93% on 6 L via nasal cannula. Lung evaluation reveals decreased air entry bilaterally with diffuse wheezing on expiration and diffuse rhonchi in all lung mcrae. EKG reveals wondering atrial pacemaker versus sinus arrhythmia with RBBB but no evidence of acute ischemia. Chest x-ray reveals cardiomegaly but no obvious infiltrate or effusion. CBC reveals no evidence of significant leukocytosis. ABG on room air revealed significantly decreased pO2 of 39 and mild hypercapnia. Patient received continuous perioral/Atrovent therapy, Solu-Medrol magnesium sulfate. Given the significant AA gradient, will obtain CT of chest with IV contrast to rule out PE. Likely admission. 08/05/18 15:12 Patient reassessed. Patient is resting comfortably. On 4 L via nasal cannula patient's oxygen saturation is noted to be 94%. Patient has continue to receive albuterol nebulizer. CT of chest reveals no evidence of PE. A pulmonary nodule which is unchanged from previous is noted on the right. Patient evaluated by Dr. Everett of pulmonary care. At this time, there is no indication for ICU admission patient will be admitted to telemetry. No indication for antibiotic therapy at this time. Case discussed with KATIA Grijalva. <Paolo Steele - Last Filed: 08/05/18 15:14> *DC/Admit/Observation/Transfer - Attestations Scribe Attestion: 08/05/18 10:48 Documentation prepared by Flores Laurent, acting as medical policy specialist for Paolo Steele MD. <Flores Laurent - Last Filed: 08/05/18 14:27> - Discharge Dispostion Decision to Admit order: Yes - Attestations Physician Attestion: 08/05/18 12:10 The documentation was prepared by the scribe under my direct supervision. I have reviewed the documentation which correctly represents the findings, medical decision-making and critical action taken by me. <Paolo Steele - Last Filed: 08/05/18 15:14> Diagnosis at time of Disposition: COPD with acute exacerbation - Discharge Dispostion Condition at time of disposition: Fair - Referrals Referrals: Justice Moran MD [Primary Care Provider] - - Patient Instructions - Post Discharge Activity
[2018-08-05] MEDS ORDERED: ALBUTEROL SO4 2.5/IPRATROPIUM 0.5 INH SOL 3 ML VIAL.NEB. NEB ONE ×4 (10:15→20:52)
[2018-08-05] MEDS ORDERED: methylPREDNISolone NA SUCC 125 MG/2 ML VIAL IVPUSH ONE (10:25)
[2018-08-05] MEDS ORDERED: methylPREDNISolone NA SUCC 125 MG/2 ML VIAL ONE (10:34)
[2018-08-05 10:43] LABS: BASO % 1.1 % (0-2.0); EOS % 5.6 % (0-4.5); HEMATOCRIT 41.5 % (32.4-45.2); HEMOGLOBIN 13.6 GM/dL (10.7-15.3); LYMPH % 17.9 % (8-40); MCH 31.6 pg (25.7-33.7); MCHC 32.8 g/dl (32.0-36.0); MEAN CELL VOLUME 96.5 fl (80-96); MEAN PLT VOLUME 8.4 fl (7.5-11.1); MONO % 8.1 % (3.8-10.2); NEUT % 67.3 % (42.8-82.8); PLATELET COUNT 199 K/MM3 (134-434); RDW 16.5 % (11.6-15.6); WHITE BLOOD COUNT 4.3 K/mm3 (4.0-10.0)
[2018-08-05 11:13] LABS: ALBUMIN 3.6 g/dl (3.4-5.0); ALK PHOS 78 U/L (45-117); ANION GAP 6 MMOL/L (8-16); BILIRUBIN,TOTAL 0.5 mg/dL (0.2-1); BLOOD UREA NITROGEN 8 mg/dL (7-18); CALCIUM 8.5 mg/dL (8.5-10.1); CHLORIDE 104 mmol/L (98-107); CO2 32 mmol/L (21-32); GLUCOSE,RANDOM 114 mg/dL (74-106); POTASSIUM 4.1 mmol/L (3.5-5.1); SGOT/AST 12 U/L (15-37); SGPT/ALT 16 U/L (13-61); SODIUM 141 mmol/L (136-145); TOT PROT 6.9 g/dl (6.4-8.2)
[2018-08-05 11:25] LABS: ARTERIAL BLD GAS O2 SATURATION 68.4 % (95-98); ARTERIAL BLOOD GAS BASE EXCESS 4.5 meq/l (-2-2); ARTERIAL BLOOD GAS PCO2 52.8 mmHg (35-45); ARTERIAL BLOOD GAS pH 7.38 (7.35-7.45)
[2018-08-05 11:27] LABS: ALLENS TEST POSITIVE
[2018-08-05 11:28] LABS: ARTERIAL BLOOD GAS PO2 39.5 mmHg (80-105)
[2018-08-05] MEDS ORDERED: MAGNESIUM SULF 50% (8.12 MEQ/2 ML-1 GM VIAL) IVPB ONE (11:33)
[2018-08-05] MEDS ORDERED: MAGNESIUM 1GM/D5W - 2 GM/200 ML IVPB IVPB ONE (11:34)
[2018-08-05] MEDS ORDERED: ALBUTEROL SO4 0.083% IH SOL 2.5 MG/3 ML VIAL.NEB. NEB ONE ×3 (11:41→12:10)
--- NOTE | 2018-08-05 14:46 | CON.PULM ---
Consult Consult Specialty:: PULMONARY Referred by:: Dr Steele Reason for Consultation:: hypoxia - History of Present Illness Chief Complaint: shortness of breath History of Present Illness: 77yo female with h/o HTN, asthma/COPD who presents with worsening shortness of breath x 1 day. Has been feeling ill for the past 2 weeks with a cough productive of green/grayish sputum. No fevers, chills or sweats. +wheezing. Only maintained on proair as needed. No chest pain or palpitations. Was given an antibiotics as outpt by her PMD. No leg pain or swelling. Found to be hypoxic to 71% on room air, placed on nasal cannula 6L/min with improvement to 92-94%. She is a long time former smoker, quit in 2004. Was set to be seen by a equity research analyst at [facility] in August. - History Source History Provided By: Patient, Medical Record Limitations to Obtaining History: No Limitations - Past Medical History Cardio/Vascular: Yes: HTN Pulmonary: Yes: COPD - Alcohol/Substance Use Hx Alcohol Use: No - Smoking History Smoking history: Never smoked Have you smoked in the past 12 months: No Aproximately how many cigarettes per day: 5 If you are a former smoker, when did you quit?: 2014 Home Medications - Allergies Allergies/Adverse Reactions: Allergies Allergy/AdvReac Type Severity Reaction Status Date / Time No Known Allergies Allergy Verified 04/18/17 13:55 - Home Medications Home Medications: Ambulatory Orders Albuterol Sulfate Inhaler - [Ventolin Hfa Inhaler -] 1 - 2 inh PO TID PRN Amlodipine Besylate [Norvasc -] 10 mg PO DAILY 08/05/18 Azelastine HCl 137 mcg NS BID 08/05/18 Benztropine Mesylate [Cogentin -] 1 mg PO DAILY 08/05/18 Dextromethorphan Polistirex 60 mg PO BID PRN 08/05/18 Diclofenac Sodium [Diclo Gel] 1 each TP QID 08/05/18 Hydrochlorothiazide [Hctz -] 25 mg PO DAILY 08/05/18 Ipratropium/Albuterol Sulfate [Iprat-Albut 0.5-3(2.5) mg/3 ml] 3 ml IH Q4HWA PRN 08/05/18 Mirabegron [Myrbetriq] 25 mg PO DAILY 08/05/18 Risperidone [Risperdal] 2 mg PO DAILY 08/05/18 Topiramate 25 mg PO DAILY 08/05/18 Review of Systems - Review of Systems Constitutional: reports: Weakness. denies: Chills, Fever Eyes: denies: Recent Change in Vision HENT: denies: Nasal Congestion, Throat Pain Neck: denies: Stiffness, Tenderness Cardiovascular: reports: Shortness of Breath. denies: Chest Pain, Edema, Palpitations Respiratory: reports: Cough, SOB, SOB on Exertion, Wheezing. denies: Hemoptysis Gastrointestinal: denies: Abdominal Pain, Nausea, Vomiting Genitourinary: denies: Dysuria, Hematuria Neurological: denies: Dizziness, Headache Endocrine: denies: Unexplained Weight Loss Physical Exam Vital Sings: Vital Signs Temperature 97.7 F 08/05/18 09:54 Pulse Rate 92 H 08/05/18 13:55 Respiratory Rate 16 08/05/18 13:55 Blood Pressure 125/79 08/05/18 09:54 O2 Sat by Pulse Oximetry (%) 92 L 08/05/18 13:55 Constitutional: Yes: Calm Eyes: Yes: Conjunctiva Clear, EOM Intact HENT: Yes: Atraumatic, Normocephalic Neck: Yes: Supple, Trachea Midline Cardiovascular: Yes: Regular Rate and Rhythm Respiratory: Yes: Diminished (distant breath sounds), Rhonchi, Wheezes ...Clubbing: No Gastrointestinal: Yes: Normal Bowel Sounds, Soft. No: Tenderness Edema: No Neurological: Yes: Alert, Oriented Labs: CBC, BMP 08/05/18 10:27 08/05/18 10:27 ABG Results ABG pH 7.38 (7.35-7.45) 08/05/18 11:19 ABG pCO2 at Pt Temp 52.8 mmHg (35-45) H 08/05/18 11:19 ABG pO2 at Pt Temp 39.5 mmHg (80-105) L* 08/05/18 11: ABG HCO3 30.4 mmol/L (22-27) H 08/05/18 11:19 ABG O2 Sat (Measured) 68.4 % (95-98) L 08/05/18 11: ABG O2 Content 12.4 % vol (15-22) L 08/05/18 11:19 ABG Base Excess 4.5 meq/l (-2-2) H 08/05/18 11:19 Imaging - Results Chest X-ray: Report Reviewed, Image Reviewed Cat Scan: Report Reviewed, Image Reviewed (no central pulmonary emboli, RUL nodule, mosaic attenuation, ?RLL artery stenosis) Problem List - Problems (1) COPD exacerbation Code(s): J44.1 - CHRONIC OBSTRUCTIVE PULMONARY DISEASE W (ACUTE) EXACERBATION (2) Acute respiratory failure with hypoxia Code(s): J96.01 - ACUTE RESPIRATORY FAILURE WITH HYPOXIA (3) Fibromyalgia Code(s): M79.7 - FIBROMYALGIA (4) HTN (hypertension) Code(s): I10 - ESSENTIAL (PRIMARY) HYPERTENSION Assessment/Plan Acute Hypoxic Respiratory Failure Acute COPD Exacerbation Likely Chronic Hypoxic Respiratory Failure r/o Pulmonary HTN HTN Fibromyalgia - IV medrol - inhaled bronchodilators - O2 to keep SpO2 >90% - echocardiogram - empiric azithromycin - will need outpt PFTs and f/u of lung nodule - DVT prophylaxis - when ready for discharge, will need to assess for home O2 - currently clinically improving and saturating well on nasal cannula, can monitor on telemetry with pulse oximetry monitoring - please call if any change in clinical condition Thank you for this consult Jean Claude Everett MD
[2018-08-05] MEDS ORDERED: ALBUTEROL SO4 0.083% IH SOL 2.5 MG/3 ML VIAL.NEB. NEB PRN (15:10)
--- NOTE | 2018-08-05 15:14 | EKG ---
Test Reason : Blood Pressure : / mmHG Vent. Rate : 089 BPM Atrial Rate : 089 BPM P-R Int : 144 ms QRS Dur : 130 ms QT Int : 380 ms P-R-T Axes : 071 -83 -57 degrees QTc Int : 462 ms POOR DATA QUALITY, INTERPRETATION MAY BE ADVERSELY AFFECTED SINUS RHYTHM WITH OCCASIONAL PREMATURE VENTRICULAR COMPLEXES AND PREMATURE ATRIAL COMPLEXES RIGHT BUNDLE BRANCH BLOCK LEFT ANTERIOR FASCICULAR BLOCK BIFASCICULAR BLOCK ABNORMAL ECG WHEN COMPARED WITH ECG OF 01-OCT-2017 12:16, PREMATURE VENTRICULAR COMPLEXES ARE NOW PRESENT Confirmed by ARAMIS REYEZ, GABRIEL ([id number]) on 08/05/2018 3:14:00 PM Referred By: Confirmed By:GABRIEL SELF MD
--- NOTE | 2018-08-05 15:58 | HP ---
Admitting History and Physical - Primary Care Physician PCP: Justice Moran S - Admission Chief Complaint: worsening SOB History of Present Illness: Patient is a 77 y/o female with past medical history of asthma, COPD. She presented to ER with complaints of worsening SOB with productive cough. Patient was recently treated with Levaquin x 1 week from PMD for same chief complaint. Patient states that she could only walk a half a block before she had SOB. Patient states experiencing productive cough with clear/white colored sputum. On arrival to ER patient SpO2 70% on RA. Placed on O2 via NC 6L/min and O2 sat increase to 94%. History Source: Patient Limitations to Obtaining History: No Limitations - Past Medical History Cardiovascular: Yes: HTN Pulmonary: Yes: COPD - Smoking History Smoking history: Never smoked Have you smoked in the past 12 months: No Aproximately how many cigarettes per day: 5 If you are a former smoker, when did you quit?: 2014 - Alcohol/Substance Use Hx Alcohol Use: No - Social History Usual Living Arrangement: Yes: Other (sister) ADL: Independent History of Recent Travel: No Home Medications - Allergies Allergies/Adverse Reactions: Allergies Allergy/AdvReac Type Severity Reaction Status Date / Time No Known Allergies Allergy Verified 04/18/17 13:55 - Home Medications Home Medications: Ambulatory Orders Albuterol Sulfate Inhaler - [Ventolin Hfa Inhaler -] 1 - 2 inh PO TID PRN Amlodipine Besylate [Norvasc -] 10 mg PO DAILY 08/05/18 Azelastine HCl 137 mcg NS BID 08/05/18 Benztropine Mesylate [Cogentin -] 1 mg PO DAILY 08/05/18 Dextromethorphan Polistirex 60 mg PO BID PRN 08/05/18 Diclofenac Sodium [Diclo Gel] 1 each TP QID 08/05/18 Hydrochlorothiazide [Hctz -] 25 mg PO DAILY 08/05/18 Ipratropium/Albuterol Sulfate [Iprat-Albut 0.5-3(2.5) mg/3 ml] 3 ml IH Q4HWA PRN 08/05/18 Mirabegron [Myrbetriq] 25 mg PO DAILY 08/05/18 Risperidone [Risperdal] 2 mg PO DAILY 08/05/18 Topiramate 25 mg PO DAILY 08/05/18 Review of Systems - Review of Systems Constitutional: reports: Weakness Eyes: reports: No Symptoms HENT: reports: Nasal Congestion Neck: reports: No Symptoms Cardiovascular: reports: No Symptoms Respiratory: reports: Cough, SOB Gastrointestinal: reports: No Symptoms Genitourinary: reports: No Symptoms Breasts: reports: No Symptoms Reported Musculoskeletal: reports: No Symptoms Integumentary: reports: No Symptoms Neurological: reports: No Symptoms Endocrine: reports: No Symptoms Hematology/Lymphatic: reports: No Symptoms Psychiatric: reports: No Symptoms Physical Examination Vital Signs: Vital Signs Temperature 97.7 F 08/05/18 09:54 Pulse Rate 92 H 08/05/18 13:55 Respiratory Rate 22 H 08/05/18 15:02 Blood Pressure 125/79 08/05/18 09:54 O2 Sat by Pulse Oximetry (%) 92 L 08/05/18 15:02 Constitutional: Yes: No Distress, Calm Eyes: Yes: Conjunctiva Clear HENT: Yes: Atraumatic Neck: Yes: Supple Cardiovascular: Yes: Regular Rate and Rhythm Respiratory: Yes: On Nasal O2, Wheezes Gastrointestinal: Yes: Normal Bowel Sounds, Soft, Abdomen, Obese Musculoskeletal: Yes: Muscle Weakness Extremities: Yes: WNL Edema: No Neurological: Yes: Alert, Oriented Psychiatric: Yes: Alert, Oriented Labs: CBC, BMP 08/05/18 10:27 08/05/18 10:27 Imaging - Results Chest X-ray: Report Reviewed Cat Scan: Report Reviewed Problem List - Problems (1) Acute respiratory failure with hypoxia Assessment/Plan: -pulm on board -O2 via NC -keep SpO2 >90% -IV solumedrol -Bronchodilators -Chest CT scan shows chronic lung disease with R basilar nodule -Echo ordered Code(s): J96.01 - ACUTE RESPIRATORY FAILURE WITH HYPOXIA (2) COPD with acute exacerbation Assessment/Plan: -pulm on board -O2 via NC -keep SpO2 >90% -IV solumedrol -Bronchodilators -Chest CT scan shows chronic lung disease with R basilar nodule -IV Azithromycin Code(s): J44.1 - CHRONIC OBSTRUCTIVE PULMONARY DISEASE W (ACUTE) EXACERBATION (3) HTN (hypertension) Assessment/Plan: -Continue Amlodipine -low Na diet Code(s): I10 - ESSENTIAL (PRIMARY) HYPERTENSION Assessment/Plan see problem list dvt ppx
[2018-08-05] MEDS ORDERED: AZITHROMYCIN IVPB 500 MG/250 ML BAG IVPB ONE (16:39)
[2018-08-05] MEDS: AZITHROMYCIN IVPB 500 MG/250 ML BAG IVPB SCH (16:51)
[2018-08-05] MEDS: ALBUTEROL SO4 2.5/IPRATROPIUM 0.5 INH SOL 3 ML VIAL.NEB. NEB SCH ×2 (17:22→20:55)
[2018-08-05] MEDS: methylPREDNISolone NA SUCC 40 MG/1 ML VIAL IVPUSH SCH (18:27)
[2018-08-05] MEDS: INSULIN SLIDING SCALE (NOVOLOG) 1 VIAL SQ SCH ×2 (18:28→23:48)
[2018-08-05] MEDS ORDERED: HEPARIN NA (PORCINE) 5,000 UNITS/ML 1ML VIAL ONE (22:10)
[2018-08-05] MEDS: HEPARIN NA (PORCINE) 5,000 UNITS/ML 1ML VIAL SQ SCH (22:15)
[2018-08-06] MEDS ORDERED: ACETAMINOPHEN 500 MG TABLET (FP) PO ONE (00:46)
[2018-08-06] MEDS: methylPREDNISolone NA SUCC 40 MG/1 ML VIAL IVPUSH SCH ×3 (01:00→17:58)
[2018-08-06 01:17] VITALS: BMI 28.9
[2018-08-06] MEDS: INSULIN SLIDING SCALE (NOVOLOG) 1 VIAL SQ SCH ×4 (06:31→22:54)
[2018-08-06 07:02] LABS: HEMOGLOBIN 12.9 GM/dL (10.7-15.3); LYMPH % 10.1 % (8-40); MCH 31.5 pg (25.7-33.7); MCHC 33.2 g/dl (32.0-36.0); MEAN CELL VOLUME 94.8 fl (80-96); MEAN PLT VOLUME 8.2 fl (7.5-11.1); MONO % 3.1 % (3.8-10.2); NEUT % 86.8 % (42.8-82.8); PLATELET COUNT 204 K/MM3 (134-434); RBC 4.11 M/mm3 (3.60-5.2); RDW 16.2 % (11.6-15.6); WHITE BLOOD COUNT 4.3 K/mm3 (4.0-10.0)
[2018-08-06] MEDS: ALBUTEROL SO4 2.5/IPRATROPIUM 0.5 INH SOL 3 ML VIAL.NEB. NEB SCH ×4 (07:15→19:20)
[2018-08-06 07:41] LABS: ALBUMIN 3.4 g/dl (3.4-5.0); ALK PHOS 72 U/L (45-117); ANION GAP 6 MMOL/L (8-16); BILIRUBIN,TOTAL 0.4 mg/dL (0.2-1); BLOOD UREA NITROGEN 9 mg/dL (7-18); CALCIUM 9.1 mg/dL (8.5-10.1); CHLORIDE 101 mmol/L (98-107); CHOLESTEROL 149 mg/dL (50-200); CO2 29 mmol/L (21-32); CREATININE 0.7 mg/dL (0.55-1.3); GLUCOSE,RANDOM 135 mg/dL (74-106); HDL CHOLESTEROL 84 mg/dL (40-60); MAGNESIUM 2.5 mg/dL (1.8-2.4); N-TERMINAL BNP 5160.5 pg/ml (5-450); PHOSPHOROUS 3.8 mg/dL (2.5-4.9); POTASSIUM 4.4 mmol/L (3.5-5.1); SGOT/AST 9 U/L (15-37); SGPT/ALT 16 U/L (13-61); SODIUM 136 mmol/L (136-145); TOT PROT 6.9 g/dl (6.4-8.2); TRIGLYCERIDES 33 mg/dL (0-150)
[2018-08-06] MEDS: AZITHROMYCIN IVPB 500 MG/250 ML BAG IVPB SCH (09:22)
[2018-08-06] MEDS: HEPARIN NA (PORCINE) 5,000 UNITS/ML 1ML VIAL SQ SCH ×2 (09:22→22:10)
[2018-08-06] MEDS: amLODIPine BESYLATE 10 MG TABLET (FP) PO SCH (09:22)
[2018-08-06] MEDS ORDERED: risperiDONE 2 MG TABLET PO SCH (10:00)
[2018-08-06] MEDS ORDERED: risperiDONE 1 MG TABLET (FP) PO SCH (10:12)
[2018-08-06] MEDS: TOPIRAMATE 25 MG TABLET (FP) PO SCH (11:04)
[2018-08-06] MEDS: diphenhydrAMINE HCL 25 MG CAPSULE (FP) PO SCH ×2 (11:04→22:10)
--- NOTE | 2018-08-06 12:49 | PN ---
Progress Note, Physician Chief Complaint: patient still has a cough - Current Medication List Current Medications: Active Medications Albuterol Sulfate (Ventolin 0.083% Nebulizer Soln -) 1 amp NEB Q4H PRN PRN Reason: SHORT OF BREATH/WHEEZING Albuterol/Ipratropium (Duoneb -) 1 amp NEB RQID [facility] Last Admin: 08/06/18 11:25 Dose: 1 amp Amlodipine Besylate (Norvasc -) 10 mg PO DAILY [facility] Last Admin: 08/06/18 09:22 Dose: 10 mg Diphenhydramine HCl (Benadryl -) 25 mg PO BID [facility] Last Admin: 08/06/18 11:04 Dose: 25 mg Heparin Sodium (Porcine) (Heparin -) 5,000 unit SQ BID [facility] Last Admin: 08/06/18 09:22 Dose: 5,000 unit Azithromycin (Zithromax 500mg Ivpb (Pre-Docked)) 500 mg in 250 mls @ 250 mls/ hr IVPB DAILY [facility] Stop: 08/09/18 10:59 Last Admin: 08/06/18 09:22 Dose: 250 mls/hr Insulin Aspart (Novolog Vial Sliding Scale -) 1 vial SQ ACHS [facility]; Protocol Last Admin: 08/06/18 11:26 Dose: Not Given Methylprednisolone Sodium Succinate (Solu-Medrol -) 60 mg IVPUSH Q8H-IV [facility] Last Admin: 08/06/18 09:21 Dose: 60 mg Myrbetiq 25mg- Patient's Own Medication (Non- Formulary) 1 each PO DAILY [facility] Risperidone (Risperdal -) 2 mg PO DAILY [facility] Topiramate (Topamax -) 25 mg PO DAILY [facility] Last Admin: 08/06/18 11:04 Dose: 25 mg - Objective Vital Signs: Vital Signs Temperature 98.0 F 08/06/18 08:25 Pulse Rate 103 H 08/06/18 08:25 Respiratory Rate 22 H 08/06/18 08:30 Blood Pressure 139/68 08/06/18 08:25 O2 Sat by Pulse Oximetry (%) 96 08/06/18 08:30 Constitutional: Yes: Calm Cardiovascular: Yes: Regular Rate and Rhythm, S1, S2 Respiratory: Yes: Rhonchi Gastrointestinal: Yes: Normal Bowel Sounds, Soft Edema: No Neurological: Yes: Alert, Oriented Labs: CBC, BMP 08/06/18 05:30 08/06/18 05:30 INR, PTT INR Cancelled 08/05/18 10:27 Problem List - Problems (1) COPD exacerbation Assessment/Plan: iv steroids oxygen CTA noted no PE chronic lung disease iv abx Code(s): J44.1 - CHRONIC OBSTRUCTIVE PULMONARY DISEASE W (ACUTE) EXACERBATION (2) HTN (hypertension) Assessment/Plan: norvasc Code(s): I10 - ESSENTIAL (PRIMARY) HYPERTENSION (3) SOB (shortness of breath) Assessment/Plan: oxygen medrol pulm/cardiology eval echo Code(s): R06.02 - SHORTNESS OF BREATH
--- NOTE | 2018-08-06 13:21 | PN ---
Progress Note (short form) - Note Progress Note: PULMONARY On 40% ventimask saturating 97%. States breathing better today. Still with nonproductive cough. Vital Signs Period Temp Pulse Resp BP Sys/Mccrary Pulse Ox Last 24 Hr 98.0 F-98.6 F 84-106 16-22 117-151/59-79 87-96 Gen: mildly tachypneic with speaking Heart: RRR Lung: scattered rhonchi, wheezes Abd: soft, nontender Ext: no edema CBC, BMP 08/06/18 05:30 08/06/18 05:30 Active Medications Albuterol Sulfate (Ventolin 0.083% Nebulizer Soln -) 1 amp NEB Q4H PRN PRN Reason: SHORT OF BREATH/WHEEZING Albuterol/Ipratropium (Duoneb -) 1 amp NEB RQID [facility] Last Admin: 08/06/18 11:25 Dose: 1 amp Amlodipine Besylate (Norvasc -) 10 mg PO DAILY [facility] Last Admin: 08/06/18 09:22 Dose: 10 mg Diphenhydramine HCl (Benadryl -) 25 mg PO BID [facility] Last Admin: 08/06/18 11:04 Dose: 25 mg Heparin Sodium (Porcine) (Heparin -) 5,000 unit SQ BID [facility] Last Admin: 08/06/18 09:22 Dose: 5,000 unit Azithromycin (Zithromax 500mg Ivpb (Pre-Docked)) 500 mg in 250 mls @ 250 mls/ hr IVPB DAILY [facility] Stop: 08/09/18 10:59 Last Admin: 08/06/18 09:22 Dose: 250 mls/hr Insulin Aspart (Novolog Vial Sliding Scale -) 1 vial SQ ACHS [facility]; Protocol Last Admin: 08/06/18 11:26 Dose: Not Given Methylprednisolone Sodium Succinate (Solu-Medrol -) 60 mg IVPUSH Q8H-IV [facility] Last Admin: 08/06/18 09:21 Dose: 60 mg Myrbetiq 25mg- Patient's Own Medication (Non- Formulary) 1 each PO DAILY [facility] Risperidone (Risperdal -) 2 mg PO DAILY [facility] Topiramate (Topamax -) 25 mg PO DAILY [facility] Last Admin: 08/06/18 11:04 Dose: 25 mg A/P Acute Hypoxic Respiratory Failure Acute COPD Exacerbation Likely Chronic Hypoxic Respiratory Failure r/o Pulmonary HTN HTN Fibromyalgia - continue medrol at current dose, can taper dose tomorrow if continues to improve - inhaled bronchodilators - O2 to keep SpO2 >90% - echocardiogram - empiric azithromycin - will need outpt PFTs and f/u of lung nodule - DVT prophylaxis - when ready for discharge, will need to assess for home O2 Problem List - Problems (1) COPD exacerbation Code(s): J44.1 - CHRONIC OBSTRUCTIVE PULMONARY DISEASE W (ACUTE) EXACERBATION (2) Acute respiratory failure with hypoxia Code(s): J96.01 - ACUTE RESPIRATORY FAILURE WITH HYPOXIA (3) Fibromyalgia Code(s): M79.7 - FIBROMYALGIA (4) HTN (hypertension) Code(s): I10 - ESSENTIAL (PRIMARY) HYPERTENSION
--- NOTE | 2018-08-06 15:00 | ECHO ---
Name: JOANN PISANO Exam:Adult Echocardiogram Study Date: 08/06/2018 09:53 AM Age: 77 yrs Reason For Study: r/o pulmonary aaaaaHTN Height: 68 in Weight: 190 lb BSA: 2.0 m2 Procedure A complete two-dimensional transthoracic echocardiogram was performed (2D, M-mode, Doppler and color flow Doppler). Left Ventricle The left ventricular size, thickness and function are normal. The left ventricular ejection fraction is normal. Ejection Fraction = 55-60%. No regional wall motion abnormalities noted. Right Ventricle The right ventricle is normal in size and function. Atria Normal left and right atrial size and function. Mitral Valve There is trace mitral regurgitation. Tricuspid Valve There is mild tricuspid regurgitation. Right ventricular systolic pressure is elevated at 40-50mmHg. There is moderate pulmonary hypertension. Aortic Valve The aortic valve is trileaflet. No hemodynamically significant valvular aortic stenosis. No aortic regurgitation is present. Pulmonic Valve There is no pulmonic valvular regurgitation. Great Vessels The aortic root is normal size. Pericardium/Pleura There is no pericardial effusion. Interpretation Summary The left ventricular size, thickness and function are normal The right ventricle is normal in size and function. There is trace mitral regurgitation. There is mild tricuspid regurgitation. There is moderate pulmonary hypertension. MD Usman Medrano 08/06/2018 02:59 PM
--- NOTE | 2018-08-06 15:55 | CON.CARD ---
Consult Consult Specialty:: Cardiology Referred by:: Nayeli Ramírez Reason for Consultation:: SOB - History of Present Illness Chief Complaint: SOB History of Present Illness: 77 year old female with a pmhx of asthma/copd, ex-tobacco use, and htn who presents with sob and cough. Has been complaining of sob and cough with sputum for last 2 weeks. Treated by pmd with levaquin and nebulizers. No chest pain. +orthopnea as getting more sob when she tries to lie down. No edema. No palpitations BNP >5000 EKG: sinus rhythm RBBB, LAFB, pvc's and pac's - History Source History Provided By: Patient, Medical Record - Past Medical History Cardio/Vascular: Yes: HTN Pulmonary: Yes: COPD - Alcohol/Substance Use Hx Alcohol Use: No - Smoking History Smoking history: Former smoker Have you smoked in the past 12 months: No Aproximately how many cigarettes per day: 5 If you are a former smoker, when did you quit?: 2014 - Social History ADL: Independent History of Recent Travel: No Home Medications - Allergies Allergies/Adverse Reactions: Allergies Allergy/AdvReac Type Severity Reaction Status Date / Time No Known Allergies Allergy Verified 04/18/17 13:55 - Home Medications Home Medications: Ambulatory Orders Albuterol Sulfate Inhaler - [Ventolin Hfa Inhaler -] 1 - 2 inh PO TID PRN Amlodipine Besylate [Norvasc -] 10 mg PO DAILY 08/05/18 Azelastine HCl 137 mcg NS BID 08/05/18 Benztropine Mesylate [Cogentin -] 1 mg PO DAILY 08/05/18 Dextromethorphan Polistirex 60 mg PO BID PRN 08/05/18 Diclofenac Sodium [Diclo Gel] 1 each TP QID 08/05/18 Hydrochlorothiazide [Hctz -] 25 mg PO DAILY 08/05/18 Ipratropium/Albuterol Sulfate [Iprat-Albut 0.5-3(2.5) mg/3 ml] 3 ml IH Q4HWA PRN 08/05/18 Mirabegron [Myrbetriq] 25 mg PO DAILY 08/05/18 Risperidone [Risperdal] 2 mg PO DAILY 08/05/18 Topiramate 25 mg PO DAILY 08/05/18 Vital Signs: Vital Signs Temperature 97.6 F 04/11/19 14:00 Pulse Rate 90 08/06/18 14:00 Respiratory Rate 20 08/06/18 14:00 Blood Pressure 130/80 08/06/18 14:00 O2 Sat by Pulse Oximetry (%) 96 08/06/18 08:30 Constitutional: Yes: No Distress Neck: Yes: Supple Respiratory: Yes: Rales Gastrointestinal: Yes: Soft Cardiovascular: Yes: Regular Rate and Rhythm JVD: Yes Carotid Bruit: No PMI: Non-Displaced Heart Sounds: Yes: S1, S2 Edema: No - Other Data Labs, Other Data: CBC, BMP 08/06/18 05:30 08/06/18 05:30 INR, PTT INR Cancelled 08/05/18 10:27 Troponin, BNP 08/06/18 05:30 Troponin I 0.02 B-Natriuretic Peptide 5160.5 H Troponin, BNP 08/06/18 05:30 Troponin I 0.02 B-Natriuretic Peptide 5160.5 H Imaging - Results Chest X-ray: Report Reviewed EKG: Image Reviewed Assessment/Plan 77 year old female with a pmhx of asthma/copd, ex-tobacco use, and htn who presents with sob and cough. Has been complaining of sob and cough with sputum for last 2 weeks. Treated by pmd with levaquin and nebulizers. No chest pain. +orthopnea as getting more sob when she tries to lie down. No edema. No palpitations BNP >5000 EKG: sinus rhythm RBBB, LAFB, pvc's and pac's Echocardiogram with normal LVEF and moderate pulm htn 1) SOB Likely mixed picture of copd and diastolic chf exacerbation -F/u with pulm regarding recs -Elevated bnp over 5000, congestion on exam, and with moderate pulm htn would give furosemide 40mg IV daily BP control with amlodipine -Will monitor on tele given frequent ectopy. Monitor lytes, I/O's and daily weights
[2018-08-06] MEDS ORDERED: diphenhydrAMINE HCL 25 MG CAPSULE (FP) PO SCH (22:00)
[2018-08-07] MEDS: methylPREDNISolone NA SUCC 40 MG/1 ML VIAL IVPUSH SCH ×3 (01:31→16:59)
[2018-08-07] MEDS: INSULIN SLIDING SCALE (NOVOLOG) 1 VIAL SQ SCH ×2 (06:37→13:37)
[2018-08-07] MEDS: ALBUTEROL SO4 2.5/IPRATROPIUM 0.5 INH SOL 3 ML VIAL.NEB. NEB SCH ×4 (08:18→20:47)
[2018-08-07] MEDS ORDERED: PT OWN MED DRAWER 7, Y5N ONE ×2 (09:20→21:42)
[2018-08-07] MEDS: AZITHROMYCIN IVPB 500 MG/250 ML BAG IVPB SCH (09:24)
[2018-08-07] MEDS: HEPARIN NA (PORCINE) 5,000 UNITS/ML 1ML VIAL SQ SCH ×2 (09:24→22:04)
[2018-08-07] MEDS: amLODIPine BESYLATE 10 MG TABLET (FP) PO SCH (09:25)
[2018-08-07] MEDS: diphenhydrAMINE HCL 25 MG CAPSULE (FP) PO SCH ×2 (09:34→22:04)
[2018-08-07] MEDS: TOPIRAMATE 25 MG TABLET (FP) PO SCH (09:35)
[2018-08-07] MEDS ORDERED: [UNRECOGNIZED DRUG - OTHER] PO SCH (10:00)
--- NOTE | 2018-08-07 10:54 | PN ---
Progress Note, Physician History of Present Illness: pulmonary alert,feeling better,less dyspneic,+cough - Current Medication List Current Medications: Active Medications Albuterol Sulfate (Ventolin 0.083% Nebulizer Soln -) 1 amp NEB Q4H PRN PRN Reason: SHORT OF BREATH/WHEEZING Albuterol/Ipratropium (Duoneb -) 1 amp NEB RQID [facility] Last Admin: 08/07/18 08:18 Dose: 1 amp Amlodipine Besylate (Norvasc -) 10 mg PO DAILY [facility] Last Admin: 08/07/18 09:25 Dose: 10 mg Diphenhydramine HCl (Benadryl -) 25 mg PO BID [facility] Last Admin: 08/07/18 09:34 Dose: 25 mg Heparin Sodium (Porcine) (Heparin -) 5,000 unit SQ BID [facility] Last Admin: 08/07/18 09:24 Dose: 5,000 unit Azithromycin (Zithromax 500mg Ivpb (Pre-Docked)) 500 mg in 250 mls @ 250 mls/ hr IVPB DAILY [facility] Stop: 08/09/18 10:59 Last Admin: 08/07/18 09:24 Dose: 250 mls/hr Insulin Aspart (Novolog Vial Sliding Scale -) 1 vial SQ ACHS [facility]; Protocol Last Admin: 08/07/18 06:37 Dose: Not Given Methylprednisolone Sodium Succinate (Solu-Medrol -) 60 mg IVPUSH Q8H-IV [facility] Last Admin: 08/07/18 09:24 Dose: 60 mg Myrbetiq 25mg- Patient's Own Medication (Non- Formulary) 1 each PO DAILY [facility] Last Admin: 08/07/18 09:25 Dose: Not Given Risperidone (Risperdal -) 2 mg PO DAILY [facility] Last Admin: 08/07/18 09:25 Dose: 2 mg Topiramate (Topamax -) 25 mg PO DAILY [facility] Last Admin: 08/07/18 09:35 Dose: Not Given - Objective Vital Signs: Vital Signs Temperature 97.8 F 08/07/18 06:00 Pulse Rate 95 H 08/07/18 06:00 Respiratory Rate 20 08/07/18 06:00 Blood Pressure 157/88 08/07/18 06:00 O2 Sat by Pulse Oximetry (%) 97 08/06/18 21:00 Constitutional: Yes: Well Nourished, Calm Eyes: Yes: WNL HENT: Yes: WNL Neck: Yes: WNL Cardiovascular: Yes: Regular Rate and Rhythm, S1, S2 Respiratory: Yes: Rhonchi (scattered michelle wheezes and rhonchi), Wheezes Gastrointestinal: Yes: Normal Bowel Sounds, Soft Extremities: Yes: WNL Edema: No Labs: CBC, BMP INR, PTT INR Cancelled 08/05/18 10:27 Assessment/Plan A/P Acute Hypoxic Respiratory Failure Acute COPD Exacerbation Likely Chronic Hypoxic Respiratory Failure r/o Pulmonary HTN HTN Fibromyalgia Pulmonary nodule no change since 10/13 - medrol taper dose - inhaled bronchodilators - O2 to keep SpO2 >90% - echocardiogram pending - empiric azithromycin - wioutpt PFTs and f/u of lung nodule - DVT prophylaxis - when ready for discharge, will need to assess for home O2 - f/u chest ct 6 months Problem List - Problems (1) COPD exacerbation Code(s): J44.1 - CHRONIC OBSTRUCTIVE PULMONARY DISEASE W (ACUTE) EXACERBATION (2) Acute respiratory failure with hypoxia Code(s): J96.01 - ACUTE RESPIRATORY FAILURE WITH HYPOXIA (3) Fibromyalgia Code(s): M79.7 - FIBROMYALGIA (4) HTN (hypertension) Code(s): I10 - ESSENTIAL (PRIMARY) HYPERTENSION
--- NOTE | 2018-08-07 13:23 | PN ---
Progress Note, Physician Chief Complaint: patient seen and examined coughing - Current Medication List Current Medications: Active Medications Albuterol Sulfate (Ventolin 0.083% Nebulizer Soln -) 1 amp NEB Q4H PRN PRN Reason: SHORT OF BREATH/WHEEZING Albuterol/Ipratropium (Duoneb -) 1 amp NEB RQID [facility] Last Admin: 08/07/18 11:37 Dose: 1 amp Amlodipine Besylate (Norvasc -) 10 mg PO DAILY [facility] Last Admin: 08/07/18 09:25 Dose: 10 mg Diphenhydramine HCl (Benadryl -) 25 mg PO BID [facility] Last Admin: 08/07/18 09:34 Dose: 25 mg Heparin Sodium (Porcine) (Heparin -) 5,000 unit SQ BID [facility] Last Admin: 08/07/18 09:24 Dose: 5,000 unit Azithromycin (Zithromax 500mg Ivpb (Pre-Docked)) 500 mg in 250 mls @ 250 mls/ hr IVPB DAILY [facility] Stop: 08/09/18 10:59 Last Admin: 08/07/18 09:24 Dose: 250 mls/hr Methylprednisolone Sodium Succinate (Solu-Medrol -) 40 mg IVPUSH Q8H-IV [facility] Myrbetiq 25mg- Patient's Own Medication (Non- Formulary) 1 each PO DAILY [facility] Last Admin: 08/07/18 09:25 Dose: Not Given Risperidone (Risperdal -) 2 mg PO DAILY [facility] Last Admin: 08/07/18 09:25 Dose: 2 mg Topiramate (Topamax -) 25 mg PO DAILY [facility] Last Admin: 08/07/18 09:35 Dose: Not Given - Objective Vital Signs: Vital Signs Temperature 98.4 F 08/07/18 10:00 Pulse Rate 90 08/07/18 10:00 Respiratory Rate 20 08/07/18 10:00 Blood Pressure 124/68 08/07/18 10:00 O2 Sat by Pulse Oximetry (%) 94 L 08/07/18 10:00 Constitutional: Yes: Calm Cardiovascular: Yes: Regular Rate and Rhythm, S1, S2 Respiratory: Yes: Rhonchi Gastrointestinal: Yes: Normal Bowel Sounds, Soft Labs: CBC, BMP 08/06/18 05:30 08/06/18 05:30 INR, PTT INR Cancelled 08/05/18 10:27 Problem List - Problems (1) COPD exacerbation Assessment/Plan: iv steroids tape dose oxygen emperic abx CTA noted no PE chronic lung disease iv abx will need home oxygen check pre and post oxygen Code(s): J44.1 - CHRONIC OBSTRUCTIVE PULMONARY DISEASE W (ACUTE) EXACERBATION (2) HTN (hypertension) Code(s): I10 - ESSENTIAL (PRIMARY) HYPERTENSION (3) SOB (shortness of breath) Assessment/Plan: oxygen medrol pulm/cardiology eval noted echo left and riht ventricle size is normal Code(s): R06.02 - SHORTNESS OF BREATH
--- NOTE | 2018-08-07 14:12 | PN ---
Progress Note, Physician Chief Complaint: Still feels some sob Tele: sinus with some brief svt History of Present Illness: 77 year old female with a pmhx of asthma/copd, ex-tobacco use, and htn who presents with sob and cough. Has been complaining of sob and cough with sputum for last 2 weeks. Treated by pmd with levaquin and nebulizers. No chest pain. +orthopnea as getting more sob when she tries to lie down. No edema. No palpitations BNP >5000 EKG: sinus rhythm RBBB, LAFB, pvc's and pac's - Current Medication List Current Medications: Active Medications Albuterol Sulfate (Ventolin 0.083% Nebulizer Soln -) 1 amp NEB Q4H PRN PRN Reason: SHORT OF BREATH/WHEEZING Albuterol/Ipratropium (Duoneb -) 1 amp NEB RQID [facility] Last Admin: 08/07/18 11:37 Dose: 1 amp Amlodipine Besylate (Norvasc -) 10 mg PO DAILY [facility] Last Admin: 08/07/18 09:25 Dose: 10 mg Diphenhydramine HCl (Benadryl -) 25 mg PO BID [facility] Last Admin: 08/07/18 09:34 Dose: 25 mg Duloxetine HCl (Cymbalta -) 40 mg PO DAILY [facility] Heparin Sodium (Porcine) (Heparin -) 5,000 unit SQ BID [facility] Last Admin: 08/07/18 09:24 Dose: 5,000 unit Azithromycin (Zithromax 500mg Ivpb (Pre-Docked)) 500 mg in 250 mls @ 250 mls/ hr IVPB DAILY [facility] Stop: 08/09/18 10:59 Last Admin: 08/07/18 09:24 Dose: 250 mls/hr Methylprednisolone Sodium Succinate (Solu-Medrol -) 40 mg IVPUSH Q8H-IV [facility] Myrbetiq 25mg- Patient's Own Medication (Non- Formulary) 1 each PO DAILY [facility] Last Admin: 08/07/18 09:25 Dose: Not Given Risperidone (Risperdal -) 2 mg PO BID [facility] Topiramate (Topamax -) 25 mg PO DAILY [facility] Last Admin: 08/07/18 09:35 Dose: Not Given - Objective Vital Signs: Vital Signs Temperature 98.4 F 08/07/18 10:00 Pulse Rate 90 08/07/18 10:00 Respiratory Rate 20 08/07/18 10:00 Blood Pressure 124/68 08/07/18 10:00 O2 Sat by Pulse Oximetry (%) 94 L 08/07/18 10:00 Constitutional: Yes: No Distress Neck: Yes: Supple Cardiovascular: Yes: Regular Rate and Rhythm, JVD, S1, S2 Respiratory: Yes: Rales Gastrointestinal: Yes: Soft Edema: Yes Edema: LLE: Trace, RLE: Trace Labs: CBC, BMP 08/06/18 05:30 08/06/18 05:30 INR, PTT INR Cancelled 08/05/18 10:27 Assessment/Plan 77 year old female with a pmhx of asthma/copd, ex-tobacco use, and htn who presents with sob and cough. Has been complaining of sob and cough with sputum for last 2 weeks. Treated by pmd with levaquin and nebulizers. No chest pain. +orthopnea as getting more sob when she tries to lie down. No edema. No palpitations BNP >5000 EKG: sinus rhythm RBBB, LAFB, pvc's and pac's Echocardiogram with normal LVEF and moderate pulm htn 1) SOB Likely mixed picture of copd and diastolic chf exacerbation -F/u with pulm regarding recs -Elevated bnp over 5000, congestion on exam, and with moderate pulm htn would give furosemide 40mg IV daily and than change to po dose -Will monitor on tele given frequent ectopy. Monitor lytes, I/O's and daily weights Given pac's and brief svt's on tele would consider changing her amlodipine to verapamil
[2018-08-07] MEDS ORDERED: risperiDONE 1 MG TABLET (FP) PO SCH (22:00)
[2018-08-08] MEDS: methylPREDNISolone NA SUCC 40 MG/1 ML VIAL IVPUSH SCH ×3 (02:39→21:58)
[2018-08-08] MEDS: ALBUTEROL SO4 2.5/IPRATROPIUM 0.5 INH SOL 3 ML VIAL.NEB. NEB SCH ×4 (07:30→20:15)
[2018-08-08 08:14] LABS: BASO % 0.2 % (0-2.0); HEMATOCRIT 40.9 % (32.4-45.2); HEMOGLOBIN 13.4 GM/dL (10.7-15.3); LYMPH % 5.8 % (8-40); MCHC 32.8 g/dl (32.0-36.0); MEAN CELL VOLUME 94.5 fl (80-96); MEAN PLT VOLUME 8.9 fl (7.5-11.1); MONO % 5.1 % (3.8-10.2); NEUT % 88.9 % (42.8-82.8); PLATELET COUNT 192 K/MM3 (134-434); RBC 4.33 M/mm3 (3.60-5.2); WHITE BLOOD COUNT 5.8 K/mm3 (4.0-10.0)
--- NOTE | 2018-08-08 08:18 | PN ---
Progress Note, Physician Chief Complaint: SOB COPD Exacerbation - Current Medication List Current Medications: Active Medications Albuterol Sulfate (Ventolin 0.083% Nebulizer Soln -) 1 amp NEB Q4H PRN PRN Reason: SHORT OF BREATH/WHEEZING Albuterol/Ipratropium (Duoneb -) 1 amp NEB RQID [facility] Last Admin: 08/07/18 20:47 Dose: 1 amp Amlodipine Besylate (Norvasc -) 10 mg PO DAILY [facility] Last Admin: 08/07/18 09:25 Dose: 10 mg Diphenhydramine HCl (Benadryl -) 25 mg PO BID [facility] Last Admin: 08/07/18 22:04 Dose: 25 mg Duloxetine HCl (Cymbalta -) 40 mg PO DAILY [facility] Furosemide (Lasix Injection -) 40 mg IVPUSH DAILY [facility] Heparin Sodium (Porcine) (Heparin -) 5,000 unit SQ BID [facility] Last Admin: 08/07/18 22:04 Dose: 5,000 unit Azithromycin (Zithromax 500mg Ivpb (Pre-Docked)) 500 mg in 250 mls @ 250 mls/ hr IVPB DAILY [facility] Stop: 08/09/18 10:59 Last Admin: 08/07/18 09:24 Dose: 250 mls/hr Methylprednisolone Sodium Succinate (Solu-Medrol -) 40 mg IVPUSH Q8H-IV [facility] Last Admin: 08/08/18 02:39 Dose: 40 mg Myrbetiq 25mg- Patient's Own Medication (Non- Formulary) 1 each PO DAILY [facility] Last Admin: 08/07/18 09:25 Dose: Not Given Risperidone (Risperdal -) 2 mg PO BID [facility] Last Admin: 08/07/18 22:04 Dose: 2 mg Topiramate (Topamax -) 25 mg PO DAILY [facility] Last Admin: 08/07/18 09:35 Dose: Not Given - Objective Vital Signs: Vital Signs Temperature 98.3 F 08/08/18 06:00 Pulse Rate 86 08/08/18 06:00 Respiratory Rate 20 08/08/18 06:00 Blood Pressure 138/83 08/08/18 06:00 O2 Sat by Pulse Oximetry (%) 93 L 08/07/18 22:00 Constitutional: Yes: Well Nourished, No Distress, Calm Cardiovascular: Yes: Regular Rate and Rhythm Respiratory: Yes: Regular Musculoskeletal: Yes: WNL Extremities: Yes: WNL Edema: No Peripheral Pulses WNL: Yes Neurological: Yes: Alert, Oriented Psychiatric: Yes: Alert, Oriented Labs: INR, PTT INR Cancelled 08/05/18 10:27 Problem List - Problems (1) COPD with acute exacerbation Assessment/Plan: -IV abx -Nasal O2 PRN -IV steroids -Seen by Pulmonary -bronchodilators Code(s): J44.1 - CHRONIC OBSTRUCTIVE PULMONARY DISEASE W (ACUTE) EXACERBATION (2) SOB (shortness of breath) Assessment/Plan: -IV abx -Nasal O2 PRN -IV steroids -Seen by Pulmonary -bronchodilators -Also seen by cardiology -BNP elevated -start furosemide 40 mg IVP daily -CTA reviewed Code(s): R06.02 - SHORTNESS OF BREATH (3) Fibromyalgia Assessment/Plan: -On topamax and cymbalta Code(s): M79.7 - FIBROMYALGIA (4) Diabetes Assessment/Plan: -recheck A1c -BGM AC HS -Diabetic low sodium diet -RD consult -Insulin sliding scale Code(s): E11.9 - TYPE 2 DIABETES MELLITUS WITHOUT COMPLICATIONS Assessment/Plan see problem list DVT prophylaxis Physical therapy
[2018-08-08 08:47] LABS: ALBUMIN 3.6 g/dl (3.4-5.0); ALK PHOS 66 U/L (45-117); ANION GAP 8 MMOL/L (8-16); BILIRUBIN,TOTAL 0.6 mg/dL (0.2-1); BLOOD UREA NITROGEN 10 mg/dL (7-18); CALCIUM 8.9 mg/dL (8.5-10.1); CHLORIDE 103 mmol/L (98-107); CO2 30 mmol/L (21-32); CREATININE 0.7 mg/dL (0.55-1.3); GLUCOSE,RANDOM 117 mg/dL (74-106); POTASSIUM 3.8 mmol/L (3.5-5.1); SGOT/AST 22 U/L (15-37); SGPT/ALT 23 U/L (13-61); SODIUM 140 mmol/L (136-145); TOT PROT 6.9 g/dl (6.4-8.2)
[2018-08-08] MEDS ORDERED: DICLOFENAC SODIUM 25 MG TABLET.DR PO PRN (09:35)
[2018-08-08] MEDS ORDERED: PT OWN MED DRAWER 7, Y5N ONE (10:19)
[2018-08-08] MEDS: PANTOPRAZOLE 40 MG TABLET (FP) PO SCH (10:31)
[2018-08-08] MEDS: FUROSEMIDE 40 MG/4 ML INJECTABLE VIAL IVPUSH SCH (10:31)
[2018-08-08] MEDS: HEPARIN NA (PORCINE) 5,000 UNITS/ML 1ML VIAL SQ SCH ×2 (10:31→21:58)
[2018-08-08] MEDS: diphenhydrAMINE HCL 25 MG CAPSULE (FP) PO SCH ×2 (10:31→21:58)
[2018-08-08] MEDS: risperiDONE 1 MG TABLET (FP) PO SCH (10:32)
[2018-08-08] MEDS: TOPIRAMATE 25 MG TABLET (FP) PO SCH (10:32)
[2018-08-08] MEDS: DULoxetine HCL 20 MG CAPSULE.DR (FP) PO SCH (10:32)
[2018-08-08] MEDS: amLODIPine BESYLATE 10 MG TABLET (FP) PO SCH (10:33)
[2018-08-08] MEDS: AZITHROMYCIN IVPB 500 MG/250 ML BAG IVPB SCH (10:34)
[2018-08-08] MEDS: BENZTROPINE MESYLATE 1 MG TABLET (FP) PO SCH (14:11)
--- NOTE | 2018-08-08 14:38 | PN ---
Progress Note (short form) - Note Progress Note: PULMONARY On 2L nasal cannula, saturating mid 90s. States breathing better today. Still with nonproductive cough. Vital Signs Period Temp Pulse Resp BP Sys/Mccrary Pulse Ox Last 24 Hr 97.8 F-98.5 F 86-96 20-20 119-140/69-83 93-93 Gen: less tachypneic with speaking Heart: RRR Lung: scattered rhonchi, wheezes Abd: soft, nontender Ext: no edema CBC, BMP 08/08/18 05:50 08/08/18 05:50 Active Medications Albuterol Sulfate (Ventolin 0.083% Nebulizer Soln -) 1 amp NEB Q4H PRN PRN Reason: SHORT OF BREATH/WHEEZING Albuterol/Ipratropium (Duoneb -) 1 amp NEB RQID [facility] Last Admin: 08/08/18 11:57 Dose: 1 amp Amlodipine Besylate (Norvasc -) 10 mg PO DAILY [facility] Last Admin: 08/08/18 10:33 Dose: 10 mg Benztropine Mesylate (Cogentin -) 1 mg PO DAILY [facility] Diclofenac Sodium (Voltaren -) 50 mg PO BID PRN PRN Reason: PAIN Diphenhydramine HCl (Benadryl -) 25 mg PO BID [facility] Last Admin: 08/08/18 10:31 Dose: 25 mg Duloxetine HCl (Cymbalta -) 40 mg PO DAILY [facility] Last Admin: 08/08/18 10:32 Dose: 40 mg Furosemide (Lasix Injection -) 40 mg IVPUSH DAILY [facility] Last Admin: 08/08/18 10:31 Dose: 40 mg Gabapentin (Neurontin -) 600 mg PO [facility] Heparin Sodium (Porcine) (Heparin -) 5,000 unit SQ BID [facility] Last Admin: 08/08/18 10:31 Dose: 5,000 unit Azithromycin (Zithromax 500mg Ivpb (Pre-Docked)) 500 mg in 250 mls @ 250 mls/ hr IVPB DAILY [facility] Stop: 08/09/18 10:59 Last Admin: 08/08/18 10:34 Dose: 250 mls/hr Methylprednisolone Sodium Succinate (Solu-Medrol -) 40 mg IVPUSH BID [facility] Last Admin: 08/08/18 10:31 Dose: 40 mg Pantoprazole Sodium (Protonix -) 40 mg PO DAILY [facility] Last Admin: 08/08/18 10:31 Dose: 40 mg Risperidone (Risperdal -) 2 mg PO DAILY [facility] Last Admin: 08/08/18 10:32 Dose: 2 mg Topiramate (Topamax -) 25 mg PO DAILY [facility] Last Admin: 08/08/18 10:32 Dose: 25 mg A/P Acute Hypoxic Respiratory Failure Acute COPD Exacerbation Likely Chronic Hypoxic Respiratory Failure r/o Pulmonary HTN HTN Fibromyalgia - continue medrol at current dose - inhaled bronchodilators - O2 to keep SpO2 >90% - empiric azithromycin - will need outpt PFTs and f/u of lung nodule - DVT prophylaxis - when ready for discharge, will need to assess for home O2 Problem List - Problems (1) COPD exacerbation Code(s): J44.1 - CHRONIC OBSTRUCTIVE PULMONARY DISEASE W (ACUTE) EXACERBATION (2) Acute respiratory failure with hypoxia Code(s): J96.01 - ACUTE RESPIRATORY FAILURE WITH HYPOXIA (3) Fibromyalgia Code(s): M79.7 - FIBROMYALGIA (4) HTN (hypertension) Code(s): I10 - ESSENTIAL (PRIMARY) HYPERTENSION
[2018-08-08] MEDS: GABAPENTIN 300 MG CAPSULE (FP) PO SCH (21:58)
[2018-08-09] MEDS ORDERED: PT OWN MED DRAWER 7, Y5N ONE (07:52)
[2018-08-09] MEDS: ALBUTEROL SO4 2.5/IPRATROPIUM 0.5 INH SOL 3 ML VIAL.NEB. NEB SCH ×3 (07:52→15:16)
[2018-08-09] MEDS: amLODIPine BESYLATE 10 MG TABLET (FP) PO SCH (09:01)
[2018-08-09] MEDS: BENZTROPINE MESYLATE 1 MG TABLET (FP) PO SCH (09:01)
[2018-08-09] MEDS: PANTOPRAZOLE 40 MG TABLET (FP) PO SCH (09:01)
[2018-08-09] MEDS: diphenhydrAMINE HCL 25 MG CAPSULE (FP) PO SCH ×2 (09:01→22:39)
[2018-08-09] MEDS: risperiDONE 1 MG TABLET (FP) PO SCH (09:02)
[2018-08-09] MEDS: DULoxetine HCL 20 MG CAPSULE.DR (FP) PO SCH (09:02)
[2018-08-09] MEDS: TOPIRAMATE 25 MG TABLET (FP) PO SCH (09:03)
[2018-08-09] MEDS: AZITHROMYCIN IVPB 500 MG/250 ML BAG IVPB SCH (09:04)
[2018-08-09] MEDS: FUROSEMIDE 40 MG/4 ML INJECTABLE VIAL IVPUSH SCH (09:05)
[2018-08-09] MEDS: methylPREDNISolone NA SUCC 40 MG/1 ML VIAL IVPUSH SCH ×2 (09:05→22:40)
[2018-08-09] MEDS: HEPARIN NA (PORCINE) 5,000 UNITS/ML 1ML VIAL SQ SCH ×2 (09:07→22:39)
--- NOTE | 2018-08-09 09:31 | PN ---
Progress Note, Physician Chief Complaint: SOB COPD Exacerbation History of Present Illness: NAD in bed comfortable denies SOB - Current Medication List Current Medications: Active Medications Albuterol Sulfate (Ventolin 0.083% Nebulizer Soln -) 1 amp NEB Q4H PRN PRN Reason: SHORT OF BREATH/WHEEZING Albuterol/Ipratropium (Duoneb -) 1 amp NEB RQID [facility] Last Admin: 08/09/18 07:52 Dose: 1 amp Amlodipine Besylate (Norvasc -) 10 mg PO DAILY [facility] Last Admin: 08/09/18 09:01 Dose: 10 mg Benztropine Mesylate (Cogentin -) 1 mg PO DAILY [facility] Last Admin: 08/09/18 09:01 Dose: 1 mg Diclofenac Sodium (Voltaren -) 50 mg PO BID PRN PRN Reason: PAIN Diphenhydramine HCl (Benadryl -) 25 mg PO BID [facility] Last Admin: 08/09/18 09:01 Dose: 25 mg Duloxetine HCl (Cymbalta -) 40 mg PO DAILY [facility] Last Admin: 08/09/18 09:02 Dose: 40 mg Furosemide (Lasix Injection -) 40 mg IVPUSH DAILY [facility] Last Admin: 08/09/18 09:05 Dose: 40 mg Gabapentin (Neurontin -) 600 mg PO HS [facility] Last Admin: 08/08/18 21:58 Dose: 600 mg Heparin Sodium (Porcine) (Heparin -) 5,000 unit SQ BID [facility] Last Admin: 08/09/18 09:07 Dose: 5,000 unit Azithromycin (Zithromax 500mg Ivpb (Pre-Docked)) 500 mg in 250 mls @ 250 mls/ hr IVPB DAILY [facility] Stop: 08/09/18 10:59 Last Admin: 08/09/18 09:04 Dose: 250 mls/hr Methylprednisolone Sodium Succinate (Solu-Medrol -) 40 mg IVPUSH BID [facility] Last Admin: 08/09/18 09:05 Dose: 40 mg Pantoprazole Sodium (Protonix -) 40 mg PO DAILY [facility] Last Admin: 08/09/18 09:01 Dose: 40 mg Risperidone (Risperdal -) 2 mg PO DAILY [facility] Last Admin: 08/09/18 09:02 Dose: 2 mg Topiramate (Topamax -) 25 mg PO DAILY [facility] Last Admin: 08/09/18 09:03 Dose: 25 mg - Objective Vital Signs: Vital Signs Temperature 97.5 F L 08/09/18 08:15 Pulse Rate 88 08/09/18 08:15 Respiratory Rate 20 08/09/18 08:18 Blood Pressure 127/74 08/09/18 08:15 O2 Sat by Pulse Oximetry (%) 97 08/09/18 08:18 Constitutional: Yes: Well Nourished, No Distress, Calm Cardiovascular: Yes: Regular Rate and Rhythm Respiratory: Yes: Regular, On Nasal O2 Gastrointestinal: Yes: WNL Genitourinary: Yes: WNL Musculoskeletal: Yes: WNL Extremities: Yes: WNL Edema: No Peripheral Pulses WNL: Yes Neurological: Yes: Alert, Oriented Psychiatric: Yes: Alert, Oriented Labs: CBC, BMP 08/08/18 05:50 08/08/18 05:50 INR, PTT INR Cancelled 08/05/18 10:27 Problem List - Problems (1) COPD with acute exacerbation Assessment/Plan: -IV abx -Nasal O2 PRN -IV steroids---> change to PO in AM -Seen by Pulmonary -bronchodilators -Pre and post ambulation SpO2 Code(s): J44.1 - CHRONIC OBSTRUCTIVE PULMONARY DISEASE W (ACUTE) EXACERBATION (2) SOB (shortness of breath) Assessment/Plan: -IV abx -Nasal O2 PRN -IV steroids -Seen by Pulmonary -bronchodilators -Also seen by cardiology -BNP elevated -furosemide 40 mg IVP daily-change to PO -CTA reviewed Code(s): R06.02 - SHORTNESS OF BREATH (3) Fibromyalgia Assessment/Plan: -On topamax and cymbalta -Gabapentin 600 mg po HS -On diclofenac as needed Code(s): M79.7 - FIBROMYALGIA (4) Diabetes Assessment/Plan: -A1c at 5.7 D/C: -BGM AC HS -Diabetic low sodium diet -RD consult -Insulin sliding scale Code(s): E11.9 - TYPE 2 DIABETES MELLITUS WITHOUT COMPLICATIONS Assessment/Plan see problem list DVT prophylaxis Physical therapy
[2018-08-09] MEDS: FUROSEMIDE 40 MG TABLET (FP) PO SCH (10:05)
--- NOTE | 2018-08-09 11:16 | PN ---
Progress Note (short form) - Note Progress Note: PULMONARY Breathing continues to improve. Still with nonproductive cough. No fevers. Vital Signs Period Temp Pulse Resp BP Sys/Mccrary Pulse Ox Last 24 Hr 97.5 F-98.4 F 67-88 20-20 123-129/67-85 97-97 Gen: NAD at rest Heart: RRR Lung: decreased breath sounds at the bases Abd: soft, nontender Ext: no edema CBC, BMP 08/08/18 05:50 08/08/18 05:50 Active Medications Albuterol Sulfate (Ventolin 0.083% Nebulizer Soln -) 1 amp NEB Q4H PRN PRN Reason: SHORT OF BREATH/WHEEZING Albuterol/Ipratropium (Duoneb -) 1 amp NEB RQID [facility] Last Admin: 08/09/18 07:52 Dose: 1 amp Amlodipine Besylate (Norvasc -) 10 mg PO DAILY [facility] Last Admin: 08/09/18 09:01 Dose: 10 mg Benztropine Mesylate (Cogentin -) 1 mg PO DAILY [facility] Last Admin: 08/09/18 09:01 Dose: 1 mg Diclofenac Sodium (Voltaren -) 50 mg PO BID PRN PRN Reason: PAIN Diphenhydramine HCl (Benadryl -) 25 mg PO BID [facility] Last Admin: 08/09/18 09:01 Dose: 25 mg Duloxetine HCl (Cymbalta -) 40 mg PO DAILY [facility] Last Admin: 08/09/18 09:02 Dose: 40 mg Furosemide (Lasix -) 40 mg PO DAILY [facility] Gabapentin (Neurontin -) 600 mg PO HS [facility] Last Admin: 08/08/18 21:58 Dose: 600 mg Heparin Sodium (Porcine) (Heparin -) 5,000 unit SQ BID [facility] Last Admin: 08/09/18 09:07 Dose: 5,000 unit Methylprednisolone Sodium Succinate (Solu-Medrol -) 40 mg IVPUSH BID [facility] Stop: 08/10/18 10:00 Last Admin: 08/09/18 09:05 Dose: 40 mg Pantoprazole Sodium (Protonix -) 40 mg PO DAILY [facility] Last Admin: 08/09/18 09:01 Dose: 40 mg Prednisone (Deltasone -) 40 mg PO DAILY [facility] Risperidone (Risperdal -) 2 mg PO DAILY [facility] Last Admin: 08/09/18 09:02 Dose: 2 mg Topiramate (Topamax -) 25 mg PO DAILY [facility] Last Admin: 08/09/18 09:03 Dose: 25 mg A/P Acute Hypoxic Respiratory Failure Acute COPD Exacerbation Likely Chronic Hypoxic Respiratory Failure r/o Pulmonary HTN HTN Fibromyalgia - agree with prednisone - inhaled bronchodilators - O2 to keep SpO2 >90% - will need outpt PFTs and f/u of lung nodule - DVT prophylaxis - check ambulatory SpO2 to assess for home O2 Problem List - Problems (1) COPD exacerbation Code(s): J44.1 - CHRONIC OBSTRUCTIVE PULMONARY DISEASE W (ACUTE) EXACERBATION (2) Acute respiratory failure with hypoxia Code(s): J96.01 - ACUTE RESPIRATORY FAILURE WITH HYPOXIA (3) Fibromyalgia Code(s): M79.7 - FIBROMYALGIA (4) HTN (hypertension) Code(s): I10 - ESSENTIAL (PRIMARY) HYPERTENSION
--- NOTE | 2018-08-09 12:57 | PN ---
Progress Note, Physician Chief Complaint: Shortness of breath History of Present Illness: 77 year old female with a pmhx of asthma/copd, ex-tobacco use, and htn who presents with sob and cough. Has been complaining of sob and cough with sputum for last 2 weeks. Treated by pmd with levaquin and nebulizers. No chest pain. +orthopnea as getting more sob when she tries to lie down. No edema. No palpitations BNP >5000 EKG: sinus rhythm RBBB, LAFB, pvc's and pac's Echocardiogram with normal LVEF and moderate pulm htn - Current Medication List Current Medications: Active Medications Albuterol Sulfate (Ventolin 0.083% Nebulizer Soln -) 1 amp NEB Q4H PRN PRN Reason: SHORT OF BREATH/WHEEZING Albuterol/Ipratropium (Duoneb -) 1 amp NEB RQID [facility] Last Admin: 08/09/18 07:52 Dose: 1 amp Amlodipine Besylate (Norvasc -) 10 mg PO DAILY [facility] Last Admin: 08/09/18 09:01 Dose: 10 mg Benztropine Mesylate (Cogentin -) 1 mg PO DAILY [facility] Last Admin: 08/09/18 09:01 Dose: 1 mg Diclofenac Sodium (Voltaren -) 50 mg PO BID PRN PRN Reason: PAIN Diphenhydramine HCl (Benadryl -) 25 mg PO BID [facility] Last Admin: 08/09/18 09:01 Dose: 25 mg Duloxetine HCl (Cymbalta -) 40 mg PO DAILY [facility] Last Admin: 08/09/18 09:02 Dose: 40 mg Furosemide (Lasix -) 40 mg PO DAILY [facility] Gabapentin (Neurontin -) 600 mg PO HS [facility] Last Admin: 08/08/18 21:58 Dose: 600 mg Heparin Sodium (Porcine) (Heparin -) 5,000 unit SQ BID [facility] Last Admin: 08/09/18 09:07 Dose: 5,000 unit Methylprednisolone Sodium Succinate (Solu-Medrol -) 40 mg IVPUSH BID [facility] Stop: 08/10/18 10:00 Last Admin: 08/09/18 09:05 Dose: 40 mg Pantoprazole Sodium (Protonix -) 40 mg PO DAILY [facility] Last Admin: 08/09/18 09:01 Dose: 40 mg Prednisone (Deltasone -) 40 mg PO DAILY [facility] Risperidone (Risperdal -) 2 mg PO DAILY [facility] Last Admin: 08/09/18 09:02 Dose: 2 mg Topiramate (Topamax -) 25 mg PO DAILY [facility] Last Admin: 08/09/18 09:03 Dose: 25 mg - Objective Vital Signs: Vital Signs Temperature 97.5 F L 08/09/18 08:15 Pulse Rate 88 08/09/18 08:15 Respiratory Rate 20 08/09/18 08:18 Blood Pressure 127/74 08/09/18 08:15 O2 Sat by Pulse Oximetry (%) 97 08/09/18 08:18 Constitutional: Yes: Well Nourished, No Distress, Calm Eyes: Yes: WNL, Conjunctiva Clear, EOM Intact HENT: Yes: WNL, Atraumatic, Normocephalic Neck: Yes: WNL, Supple, Trachea Midline Cardiovascular: Yes: WNL Respiratory: Yes: WNL, Regular, CTA Bilaterally Gastrointestinal: Yes: WNL, Normal Bowel Sounds, Soft ...Rectal Exam: Yes: Deferred Musculoskeletal: Yes: WNL Extremities: Yes: WNL Edema: LLE: Trace, RLE: Trace Peripheral Pulses: Left Radial: 1+, Right Radial: 1+, Left Doralis Pedis: 1+, Right Dorsalis Pedis: 1+, Left Femoral: 1+, Right Femoral: 1+ Integumentary: Yes: WNL Neurological: Yes: WNL, Alert, Oriented ...Motor Strength: WNL Labs: CBC, BMP 08/08/18 05:50 08/08/18 05:50 INR, PTT INR Cancelled 08/05/18 10:27 Assessment/Plan 77 year old female with a pmhx of asthma/copd, ex-tobacco use, and htn who presents with sob and cough. Has been complaining of sob and cough with sputum for last 2 weeks. Treated by pmd with levaquin and nebulizers. No chest pain. +orthopnea as getting more sob when she tries to lie down. No edema. No palpitations BNP >5000 EKG: sinus rhythm RBBB, LAFB, pvc's and pac's Echocardiogram with normal LVEF and moderate pulm htn The patient is clinically and symptomatically better. Please continue current regimen. Low-sodium diet. Encourage the patient to get out of bed and ambulate. No need for cardiac monitoring. Please do not hesitate to call [facility].
[2018-08-09] MEDS: GABAPENTIN 300 MG CAPSULE (FP) PO SCH (22:39)
[2018-08-10 06:54] LABS: ANION GAP 4 MMOL/L (8-16); BLOOD UREA NITROGEN 18 mg/dL (7-18); CALCIUM 8.7 mg/dL (8.5-10.1); CHLORIDE 102 mmol/L (98-107); CO2 32 mmol/L (21-32); CREATININE 0.8 mg/dL (0.55-1.3); GLUCOSE,RANDOM 124 mg/dL (74-106); POTASSIUM 3.5 mmol/L (3.5-5.1); SODIUM 138 mmol/L (136-145)
[2018-08-10] MEDS: ALBUTEROL SO4 2.5/IPRATROPIUM 0.5 INH SOL 3 ML VIAL.NEB. NEB SCH ×3 (07:36→15:45)
[2018-08-10] MEDS: PANTOPRAZOLE 40 MG TABLET (FP) PO SCH (09:58)
[2018-08-10] MEDS: diphenhydrAMINE HCL 25 MG CAPSULE (FP) PO SCH (09:58)
[2018-08-10] MEDS: FUROSEMIDE 40 MG TABLET (FP) PO SCH (09:58)
[2018-08-10] MEDS: TOPIRAMATE 25 MG TABLET (FP) PO SCH (09:58)
[2018-08-10] MEDS: amLODIPine BESYLATE 10 MG TABLET (FP) PO SCH (09:58)
[2018-08-10] MEDS ORDERED: predniSONE 20 MG TABLET (UD) PO SCH (10:00)
[2018-08-10] MEDS: DULoxetine HCL 20 MG CAPSULE.DR (FP) PO SCH (10:01)
[2018-08-10] MEDS: BENZTROPINE MESYLATE 1 MG TABLET (FP) PO SCH (10:01)
[2018-08-10] MEDS: HEPARIN NA (PORCINE) 5,000 UNITS/ML 1ML VIAL SQ SCH (10:02)
[2018-08-10] MEDS: risperiDONE 1 MG TABLET (FP) PO SCH (10:03)
--- NOTE | 2018-08-10 10:46 | PN ---
Progress Note, Physician History of Present Illness: PULMONARY ALERT,LESS DYSPNEA - Current Medication List Current Medications: Active Medications Albuterol Sulfate (Ventolin 0.083% Nebulizer Soln -) 1 amp NEB Q4H PRN PRN Reason: SHORT OF BREATH/WHEEZING Albuterol/Ipratropium (Duoneb -) 1 amp NEB RQID [facility] Last Admin: 08/10/18 07:36 Dose: 1 amp Amlodipine Besylate (Norvasc -) 10 mg PO DAILY [facility] Last Admin: 08/10/18 09:58 Dose: 10 mg Benztropine Mesylate (Cogentin -) 1 mg PO DAILY [facility] Last Admin: 08/10/18 10:01 Dose: 1 mg Diclofenac Sodium (Voltaren -) 50 mg PO BID PRN PRN Reason: PAIN Diphenhydramine HCl (Benadryl -) 25 mg PO BID [facility] Last Admin: 08/10/18 09:58 Dose: 25 mg Duloxetine HCl (Cymbalta -) 40 mg PO DAILY [facility] Last Admin: 08/10/18 10:01 Dose: 40 mg Furosemide (Lasix -) 40 mg PO DAILY [facility] Last Admin: 08/10/18 09:58 Dose: 40 mg Gabapentin (Neurontin -) 600 mg PO HS [facility] Last Admin: 08/09/18 22:39 Dose: 600 mg Heparin Sodium (Porcine) (Heparin -) 5,000 unit SQ BID [facility] Last Admin: 08/10/18 10:02 Dose: 5,000 unit Pantoprazole Sodium (Protonix -) 40 mg PO DAILY [facility] Last Admin: 08/10/18 09:58 Dose: 40 mg Prednisone (Deltasone -) 40 mg PO DAILY [facility] Last Admin: 08/10/18 10:02 Dose: 40 mg Risperidone (Risperdal -) 2 mg PO DAILY [facility] Last Admin: 08/10/18 10:03 Dose: 2 mg Topiramate (Topamax -) 25 mg PO DAILY [facility] Last Admin: 08/10/18 09:58 Dose: 25 mg - Objective Vital Signs: Vital Signs Temperature 98.8 F 08/10/18 05:02 Pulse Rate 74 08/10/18 05:02 Respiratory Rate 20 08/10/18 05:02 Blood Pressure 126/70 08/10/18 05:02 O2 Sat by Pulse Oximetry (%) 99 08/09/18 22:00 Constitutional: Yes: Well Nourished, Calm Eyes: Yes: WNL HENT: Yes: WNL Neck: Yes: WNL Cardiovascular: Yes: Regular Rate and Rhythm, S1, S2 Respiratory: Yes: Rhonchi (SCATTERED WHEEEZES AND RHONCHI), Wheezes Gastrointestinal: Yes: Normal Bowel Sounds, Soft Extremities: Yes: WNL Edema: No Labs: 08/10/18 05:30 INR, PTT Assessment/Plan A/P Acute Hypoxic Respiratory Failure Acute COPD Exacerbation Likely Chronic Hypoxic Respiratory Failure r/o Pulmonary HTN HTN Fibromyalgia Pulmonary nodule no change since 10/13 - prednisone - inhaled bronchodilators - O2 to keep SpO2 >90% - outpt PFTs and f/u of lung nodule - DVT prophylaxis - when ready for discharge, will need to assess for home O2 - f/u chest ct 6 months Problem List - Problems (1) COPD exacerbation Code(s): J44.1 - CHRONIC OBSTRUCTIVE PULMONARY DISEASE W (ACUTE) EXACERBATION (2) Acute respiratory failure with hypoxia Code(s): J96.01 - ACUTE RESPIRATORY FAILURE WITH HYPOXIA (3) Fibromyalgia Code(s): M79.7 - FIBROMYALGIA (4) HTN (hypertension) Code(s): I10 - ESSENTIAL (PRIMARY) HYPERTENSION
[2018-08-10 11:01] VITALS: BP 114/62; PULSE 79; TEMP 98.3
--- NOTE | 2018-08-10 14:55 | DS ---
Physical Examination Vital Signs: Vital Signs Temperature 98.3 F 08/10/18 10:00 Pulse Rate 79 08/10/18 10:00 Respiratory Rate 20 08/10/18 10:00 Blood Pressure 114/62 08/10/18 10:00 O2 Sat by Pulse Oximetry (%) 99 08/10/18 09:00 Constitutional: Yes: Calm Cardiovascular: Yes: Regular Rate and Rhythm, S1, S2 Respiratory: Yes: CTA Bilaterally Gastrointestinal: Yes: Normal Bowel Sounds, Soft Edema: No Neurological: Yes: Alert, Oriented Labs: CBC, BMP 08/08/18 05:50 08/10/18 05:30 Discharge Summary Reason For Visit: CHRONIC COPD W ACUTE EXACERBATION Current Active Problems Acute respiratory failure with hypoxia (Acute) COPD with acute exacerbation (Acute) Diabetes (Acute) SOB (shortness of breath) (Acute) Hospital Course: Primary Care Physician PCP: Justice Moran S - Admission Chief Complaint: worsening SOB History of Present Illness: Patient is a 77 y/o female with past medical history of asthma, COPD. She presented to ER with complaints of worsening SOB with productive cough. Patient was recently treated with Levaquin x 1 week from PMD for same chief complaint. Patient states that she could only walk a half a block before she had SOB. Patient states experiencing productive cough with clear/white colored sputum. On arrival to ER patient SpO2 70% on RA. Placed on O2 via NC 6L/min and O2 sat increase to 94%. iv medrol change to po prednsione home oxygen arranged seen by pulmonary in hospital Condition: Improved - Instructions Disposition: VNS/HOME HEALTH CARE - Home Medications Comprehensive Discharge Medication List: Ambulatory Orders Albuterol Sulfate Inhaler - [Ventolin Hfa Inhaler -] 1 - 2 inh PO TID PRN Amlodipine Besylate [Norvasc -] 10 mg PO DAILY 08/05/18 Azelastine HCl 137 mcg NS BID 08/05/18 Benztropine Mesylate [Cogentin -] 1 mg PO DAILY 08/05/18 Dextromethorphan Polistirex 60 mg PO BID PRN 08/05/18 Diclofenac Sodium [Diclo Gel] 1 each TP QID 08/05/18 Hydrochlorothiazide [Hctz -] 25 mg PO DAILY 08/05/18 Ipratropium/Albuterol Sulfate [Iprat-Albut 0.5-3(2.5) mg/3 ml] 3 ml IH Q4HWA PRN 08/05/18 Mirabegron [Myrbetriq] 25 mg PO DAILY 08/05/18 Risperidone [Risperdal] 2 mg PO DAILY 08/05/18 Topiramate 25 mg PO DAILY 08/05/18 Diclofenac Potassium 50 mg PO 08/07/18 Gabapentin [Neurontin] 600 mg PO HS 08/07/18
== END 2018-08-10 16:49 | disposition home health service (06) | DRG 291 ==
LOC: JER 09:47 → JERBED 15:14 → J4W 23:33
PROVIDERS: ADMIT Family Medicine; ATTEND Family Medicine
DX: I11.0 Hypertensive heart disease with heart failure (principal); I50.31 Acute diastolic (congestive) heart failure; J96.21 Acute and chronic respiratory failure with hypoxia; J44.1 Chronic obstructive pulmonary disease with (acute) exacerbation; M79.7 Fibromyalgia; R91.1 Solitary pulmonary nodule; I45.10 Unspecified right bundle-branch block; Z87.891 Personal history of nicotine dependence
CPT/HCPCS: 36415; 36600; 71045-TC-FY; 71275-TC; 80048; 80053; 80061; 82550; 82803; 82962; 83036; 83721; 83735; 83880; 84100; 84436; 84439; 84443; 84484; 85025; 93005; 93010; 93306-TC; 94640; 94761; 97116-GP; 97161-GP; 99283-25; J1644; J2794

== ENCOUNTER 2020-09-27 14:14 | Emergency (ER) | payer MEDICARE, OTHER ==
[2020-09-27 14:32] VITALS: BMI 26.6
[2020-09-27] MEDS ORDERED: ACETAMINOPHEN 500 MG TABLET (FP) PO ONE (18:45)
[2020-09-27] MEDS ORDERED: ACETAMINOPHEN 325 MG TABLET (FP) ONE (18:48)
[2020-09-27 18:50] VITALS: BP 114/71; PULSE 71; TEMP 97.8
== END 2020-09-27 19:22 | disposition home or self-care (01) ==
LOC: JER 14:14
DX: J98.4 Other disorders of lung (principal)
CPT/HCPCS: 70450-TC; 72125-TC; 72128-TC; 73030-TC-LT-FY; 73030-TC-RT-FY; 73070-TC-LT-FY; 73070-TC-RT-FY; 99285-25

== ENCOUNTER 2021-02-23 13:33 | Inpatient (IN) | payer OTHER, MEDICARE ==
[2021-02-23] MEDS ORDERED: predniSONE 20 MG TABLET (UD) PO ONE (15:22)
[2021-02-23] MEDS ORDERED: predniSONE 20 MG TABLET (UD) ONE (15:45)
[2021-02-23] MEDS ORDERED: ALBUTEROL SO4 2.5/IPRATROPIUM 0.5 INH SOL 3 ML VIAL.NEB. NEB ONE (15:45)
[2021-02-23] MEDS: ALBUTEROL SO4 2.5/IPRATROPIUM 0.5 INH SOL 3 ML VIAL.NEB. NEB SCH ×2 (15:53→15:54)
[2021-02-23 16:11] LABS: BASO % 1.7 % (0-2.0); EOS % 2.6 % (0-4.5); HEMOGLOBIN 13.4 GM/dL (10.7-15.3); LYMPH % 23.5 % (8-40); MCH 32.1 pg (25.7-33.7); MCHC 34.3 g/dl (32.0-36.0); MEAN CELL VOLUME 93.6 fl (80-96); MEAN PLT VOLUME 9.2 fl (7.5-11.1); MONO % 11.6 % (3.8-10.2); NEUT % 60.6 % (42.8-82.8); PLATELET COUNT 147 10^3/uL (134-434); RBC 4.17 M/mm3 (3.60-5.2); RDW 14.2 % (11.6-15.6); WHITE BLOOD COUNT 4.1 K/mm3 (4.0-10.0)
[2021-02-23 16:26] LABS: CHLORIDE 104 mmol/L (98-107); SODIUM 135 mmol/L (136-145)
[2021-02-23 16:28] LABS: CALCIUM 9.2 mg/dL (8.5-10.1)
[2021-02-23 16:29] LABS: BLOOD UREA NITROGEN 10.2 mg/dL (7-18); CO2 28 mmol/L (21-32); GLUCOSE,RANDOM 92 mg/dL (74-106)
[2021-02-23 16:32] LABS: CREATININE 1.1 mg/dL (0.55-1.3)
[2021-02-23 16:33] LABS: BILIRUBIN,TOTAL 0.5 mg/dL (0.2-1)
[2021-02-23 16:35] LABS: ALK PHOS 65 U/L (45-117)
[2021-02-23 16:55] LABS: ANION GAP 3 MMOL/L (8-16); SGOT/AST 119 U/L (15-37); SGPT/ALT 28 U/L (13-61)
[2021-02-23 17:12] LABS: PLATELET ESTIMATE DECREASED
[2021-02-23 18:37] LABS: CALCIUM 9.6 mg/dL (8.5-10.1)
[2021-02-23 18:38] LABS: ALBUMIN 3.2 g/dl (3.4-5.0); BLOOD UREA NITROGEN 10.3 mg/dL (7-18)
[2021-02-23 18:41] LABS: CREATININE 0.9 mg/dL (0.55-1.3)
[2021-02-23 18:42] LABS: BILIRUBIN,TOTAL 0.6 mg/dL (0.2-1)
[2021-02-23 18:43] LABS: TOT PROT 6.6 g/dl (6.4-8.2)
[2021-02-24] MEDS ORDERED: ALBUTEROL SO4 2.5/IPRATROPIUM 0.5 INH SOL 3 ML VIAL.NEB. NEB PRN (00:53)
[2021-02-24] MEDS ORDERED: MAGNESIUM CITRATE 300 ML BOTTLE PO PRN (03:47)
[2021-02-24 04:02] VITALS: BMI 26.3
[2021-02-24] MEDS: INSULIN SLIDING SCALE (NOVOLOG) 1 VIAL SQ SCH ×4 (06:06→21:27)
[2021-02-24] MEDS ORDERED: PT OWN MED DRAWER 7, Y5N ONE ×3 (09:25→21:29)
[2021-02-24] MEDS ORDERED: DICLOFENAC SODIUM 25 MG TABLET.DR PO SCH (10:00)
[2021-02-24] MEDS ORDERED: predniSONE 20 MG TABLET (UD) PO SCH (10:00)
[2021-02-24] MEDS ORDERED: DICLOFENAC SODIUM TP SCH (10:00)
[2021-02-24] MEDS: ENOXAPARIN NA (PORCINE) 40 MG/0.4 ML DISP.SYRIN SQ SCH (10:06)
[2021-02-24] MEDS: FLUTICASONE/UMECLIDIN/VILANTER(100-62.5-25 TRELEGY ELLIPTA) INAHLER IH SCH (10:06)
[2021-02-24] MEDS: amLODIPine BESYLATE 10 MG TABLET (FP) PO SCH (10:06)
[2021-02-24] MEDS: DULoxetine HCL 20 MG CAPSULE.DR PO SCH (12:06)
[2021-02-24] MEDS: risperiDONE 1 MG TABLET PO SCH ×2 (12:06→21:32)
[2021-02-24] MEDS ORDERED: ALBUTEROL SO4 0.083% IH SOL 2.5 MG/3 ML VIAL.NEB. NEB PRN (15:30)
[2021-02-24] MEDS: methylPREDNISolone NA SUCC 40 MG/1 ML VIAL IVPUSH SCH ×2 (17:01→21:32)
[2021-02-24] MEDS: GABAPENTIN 300 MG CAPSULE PO SCH (21:31)
[2021-02-24] MEDS: DICLOFENAC SODIUM 25 MG TABLET.DR PO SCH (21:32)
[2021-02-24] MEDS: diphenhydrAMINE HCL 25 MG CAPSULE (FP) PO PRN (21:55)
[2021-02-25] MEDS: methylPREDNISolone NA SUCC 40 MG/1 ML VIAL IVPUSH SCH ×3 (02:09→18:40)
[2021-02-25] MEDS: INSULIN SLIDING SCALE (NOVOLOG) 1 VIAL SQ SCH ×4 (06:00→21:21)
[2021-02-25] MEDS: amLODIPine BESYLATE 10 MG TABLET (FP) PO SCH (09:41)
[2021-02-25] MEDS: ENOXAPARIN NA (PORCINE) 40 MG/0.4 ML DISP.SYRIN SQ SCH (09:42)
[2021-02-25] MEDS: risperiDONE 1 MG TABLET PO SCH ×2 (09:42→21:23)
[2021-02-25] MEDS: DULoxetine HCL 20 MG CAPSULE.DR PO SCH (09:43)
[2021-02-25] MEDS: DICLOFENAC SODIUM 25 MG TABLET.DR PO SCH (09:44)
[2021-02-25] MEDS: FLUTICASONE/UMECLIDIN/VILANTER(100-62.5-25 TRELEGY ELLIPTA) INAHLER IH SCH (09:49)
[2021-02-25 11:55] LABS: BASO % 0.3 % (0-2.0); EOS % 0.1 % (0-4.5); HEMATOCRIT 40.3 % (32.4-45.2); HEMOGLOBIN 13.7 GM/dL (10.7-15.3); LYMPH % 11.6 % (8-40); MCH 32.1 pg (25.7-33.7); MEAN CELL VOLUME 94.4 fl (80-96); MONO % 5.8 % (3.8-10.2); NEUT % 82.2 % (42.8-82.8); PLATELET COUNT 164 10^3/uL (134-434); RBC 4.27 M/mm3 (3.60-5.2); RDW 14.2 % (11.6-15.6); WHITE BLOOD COUNT 3.8 K/mm3 (4.0-10.0)
[2021-02-25 12:07] LABS: BLOOD UREA NITROGEN 16.5 mg/dL (7-18); CALCIUM 9.2 mg/dL (8.5-10.1)
[2021-02-25 12:08] LABS: INR 1.09 (0.83-1.09); PROTHROMBIN TIME (PATIENT) 12.2 SEC (9.7-13.0)
[2021-02-25 12:10] LABS: CREATININE 1.1 mg/dL (0.55-1.3)
[2021-02-25 12:11] LABS: ACTIVATED PTT 27.3 SECONDS (25.2-36.5)
[2021-02-25] MEDS: PATIENT'S OWN MEDICATION (NON-FORMULARY) (Mirabegron [Myrbetriq] 50 MG Tab.Er.24h) PO SCH (18:54)
[2021-02-25] MEDS ORDERED: PT OWN MED DRAWER 7, Y5N ONE (21:16)
[2021-02-25] MEDS: diphenhydrAMINE HCL 25 MG CAPSULE (FP) PO PRN (21:22)
[2021-02-25] MEDS: GABAPENTIN 300 MG CAPSULE PO SCH (21:22)
[2021-02-26] MEDS: methylPREDNISolone NA SUCC 40 MG/1 ML VIAL IVPUSH SCH ×3 (02:20→17:29)
[2021-02-26] MEDS: INSULIN SLIDING SCALE (NOVOLOG) 1 VIAL SQ SCH ×4 (06:01→21:15)
[2021-02-26] MEDS ORDERED: PT OWN MED DRAWER 7, Y5N ONE (08:42)
[2021-02-26] MEDS: ENOXAPARIN NA (PORCINE) 40 MG/0.4 ML DISP.SYRIN SQ SCH (08:59)
[2021-02-26] MEDS: DULoxetine HCL 20 MG CAPSULE.DR PO SCH (08:59)
[2021-02-26] MEDS: FLUTICASONE/UMECLIDIN/VILANTER(100-62.5-25 TRELEGY ELLIPTA) INAHLER IH SCH (08:59)
[2021-02-26] MEDS: DICLOFENAC SODIUM 75 MG, DICLOFENAC SODIUM 25 MG PO SCH (09:00)
[2021-02-26] MEDS: amLODIPine BESYLATE 10 MG TABLET (FP) PO SCH (09:00)
[2021-02-26] MEDS: risperiDONE 1 MG TABLET PO SCH ×2 (09:00→21:16)
[2021-02-26] MEDS: GABAPENTIN 300 MG CAPSULE PO SCH (21:15)
[2021-02-26] MEDS: diphenhydrAMINE HCL 25 MG CAPSULE (FP) PO PRN (21:20)
[2021-02-27] MEDS: methylPREDNISolone NA SUCC 40 MG/1 ML VIAL IVPUSH SCH ×3 (02:17→18:05)
[2021-02-27] MEDS: INSULIN SLIDING SCALE (NOVOLOG) 1 VIAL SQ SCH ×4 (08:23→21:49)
[2021-02-27] MEDS: amLODIPine BESYLATE 10 MG TABLET (FP) PO SCH (10:05)
[2021-02-27] MEDS: ENOXAPARIN NA (PORCINE) 40 MG/0.4 ML DISP.SYRIN SQ SCH (10:05)
[2021-02-27] MEDS: DULoxetine HCL 20 MG CAPSULE.DR PO SCH (10:05)
[2021-02-27] MEDS: DICLOFENAC SODIUM 75 MG, DICLOFENAC SODIUM 25 MG PO SCH (10:06)
[2021-02-27] MEDS: risperiDONE 1 MG TABLET PO SCH ×2 (10:06→21:49)
[2021-02-27] MEDS: FLUTICASONE/UMECLIDIN/VILANTER(100-62.5-25 TRELEGY ELLIPTA) INAHLER IH SCH (10:07)
[2021-02-27] MEDS ORDERED: PT OWN MED DRAWER 7, Y5N ONE ×2 (10:27→21:35)
[2021-02-27] MEDS: GABAPENTIN 300 MG CAPSULE PO SCH (21:49)
[2021-02-28] MEDS: methylPREDNISolone NA SUCC 40 MG/1 ML VIAL IVPUSH SCH ×2 (01:54→09:07)
[2021-02-28] MEDS: INSULIN SLIDING SCALE (NOVOLOG) 1 VIAL SQ SCH ×3 (06:20→16:12)
[2021-02-28] MEDS: ENOXAPARIN NA (PORCINE) 40 MG/0.4 ML DISP.SYRIN SQ SCH (09:07)
[2021-02-28] MEDS: risperiDONE 1 MG TABLET PO SCH (09:08)
[2021-02-28] MEDS: DULoxetine HCL 20 MG CAPSULE.DR PO SCH (09:08)
[2021-02-28] MEDS: amLODIPine BESYLATE 10 MG TABLET (FP) PO SCH (09:08)
[2021-02-28] MEDS: DICLOFENAC SODIUM 75 MG, DICLOFENAC SODIUM 25 MG PO SCH (09:09)
[2021-02-28] MEDS: FLUTICASONE/UMECLIDIN/VILANTER(100-62.5-25 TRELEGY ELLIPTA) INAHLER IH SCH (09:09)
[2021-02-28 15:18] VITALS: BP 136/78; PULSE 86; TEMP 97.9
[2021-03-01] MEDS ORDERED: methylPREDNISolone NA SUCC 40 MG/1 ML VIAL IVPUSH SCH (10:00)
== END 2021-02-28 17:18 | disposition home or self-care (01) | DRG 190 ==
LOC: JER 13:33 → JERBED 02-24 00:09 → J5S 02-24 03:46
PROVIDERS: ATTEND Family Medicine
DX: J44.9 Chronic obstructive pulmonary disease, unspecified (principal); J96.21 Acute and chronic respiratory failure with hypoxia; I10 Essential (primary) hypertension; M79.7 Fibromyalgia; R91.1 Solitary pulmonary nodule; E87.5 Hyperkalemia; K59.00 Constipation, unspecified; Z96.653 Presence of artificial knee joint, bilateral; Z86.718 Personal history of other venous thrombosis and embolism
CPT/HCPCS: 36415; 71046-TC-FY; 71275-TC; 80048; 80053; 82550; 82553; 82962; 83880; 84484; 85025; 85379; 85610; 85730; 93005; 93010; 93970-TC; 94761; 97116-GP; 97162-GP; 99285-25; C9803; J2794; Q9967; U0003; U0005

== ENCOUNTER 2021-03-02 18:35 | Inpatient (IN) | payer OTHER, MEDICARE ==
[2021-03-02] MEDS ORDERED: FUROSEMIDE 40 MG/4 ML INJECTABLE VIAL IVPUSH ONE (20:44)
[2021-03-02 21:28] LABS: PH,URINE 8.5 (5.0-8.0); URINE APPEARANCE CLEAR; URINE BILIRUBIN NEGATIVE (NEGATIVE); URINE COLOR YELLOW; URINE GLUCOSE (UA) NEGATIVE (NEGATIVE); URINE KETONE TRACE (NEGATIVE); URINE LEUK ESTERASE NEGATIVE (NEGATIVE); URINE NITRITE NEGATIVE (NEGATIVE); URINE PROTEIN NEGATIVE (NEGATIVE)
[2021-03-02 21:31] LABS: BASO % 0.3 % (0-2.0); EOS % 0.3 % (0-4.5); HEMATOCRIT 47.7 % (32.4-45.2); MCH 31.5 pg (25.7-33.7); MCHC 33.5 g/dl (32.0-36.0); MEAN CELL VOLUME 93.8 fl (80-96); MEAN PLT VOLUME 8.6 fl (7.5-11.1); MONO % 6.3 % (3.8-10.2); NEUT % 83.1 % (42.8-82.8); PLATELET COUNT 155 10^3/uL (134-434); RBC 5.09 M/mm3 (3.60-5.2); RDW 13.6 % (11.6-15.6); WHITE BLOOD COUNT 7.8 K/mm3 (4.0-10.0)
[2021-03-02 21:35] LABS: INR 1.09 (0.83-1.09); PROTHROMBIN TIME (PATIENT) 12.8 SEC (9.7-13.0)
[2021-03-02] MEDS ORDERED: FUROSEMIDE 40 MG/4 ML INJECTABLE VIAL ONE (21:36)
[2021-03-02 21:37] LABS: ACTIVATED PTT 26.1 SECONDS (25.2-36.5)
[2021-03-02 21:47] LABS: ALBUMIN 3.6 g/dl (3.4-5.0); CALCIUM 9.5 mg/dL (8.5-10.1)
[2021-03-02 21:50] LABS: CREATININE 0.8 mg/dL (0.55-1.3)
[2021-03-02 21:53] LABS: BILIRUBIN,TOTAL 1.5 mg/dL (0.2-1)
[2021-03-02 21:56] LABS: N-TERMINAL BNP 2813.6 pg/ml (5-450)
[2021-03-03] MEDS ORDERED: ALBUTEROL SO4 HFA INHALER IH PRN (04:57)
[2021-03-03] MEDS ORDERED: ALBUTEROL SO4 2.5/IPRATROPIUM 0.5 INH SOL 3 ML VIAL.NEB. NEB PRN (04:57)
[2021-03-03 06:06] LABS: BASO % 0.5 % (0-2.0); EOS % 1.3 % (0-4.5); HEMATOCRIT 47.2 % (32.4-45.2); HEMOGLOBIN 16.1 GM/dL (10.7-15.3); LYMPH % 19.4 % (8-40); MCH 32.2 pg (25.7-33.7); MCHC 34.2 g/dl (32.0-36.0); MEAN PLT VOLUME 8.6 fl (7.5-11.1); MONO % 11.5 % (3.8-10.2); NEUT % 67.3 % (42.8-82.8); PLATELET COUNT 160 10^3/uL (134-434); RBC 5.02 M/mm3 (3.60-5.2); RDW 13.4 % (11.6-15.6); WHITE BLOOD COUNT 7.5 K/mm3 (4.0-10.0)
[2021-03-03 06:28] LABS: ALBUMIN 3.6 g/dl (3.4-5.0); BLOOD UREA NITROGEN 16.7 mg/dL (7-18); CALCIUM 9.8 mg/dL (8.5-10.1)
[2021-03-03 06:31] LABS: CREATININE 0.9 mg/dL (0.55-1.3)
[2021-03-03 06:33] LABS: BILIRUBIN,TOTAL 1.6 mg/dL (0.2-1); TOT PROT 6.9 g/dl (6.4-8.2)
[2021-03-03] MEDS ORDERED: PATIENT'S OWN MEDICATION (NON-FORMULARY) (Mirabegron [Myrbetriq] 50 MG Tab.Er.24h) PO SCH (10:00)
[2021-03-03] MEDS ORDERED: POTASSIUM CHLORIDE ORAL LIQUID 20 MEQ/15 ML PO ONE (12:49)
[2021-03-03] MEDS ORDERED: POTASSIUM CHLORIDE ORAL LIQUID 20 MEQ/15 ML ONE (15:20)
[2021-03-03] MEDS ORDERED: amLODIPine BESYLATE 5 MG TABLET (FP) ONE (15:21)
[2021-03-03] MEDS: amLODIPine BESYLATE 10 MG TABLET (FP) PO SCH (15:21)
[2021-03-03] MEDS: FLUTICASONE/UMECLIDIN/VILANTER(100-62.5-25 TRELEGY ELLIPTA) INAHLER IH SCH (15:22)
[2021-03-03] MEDS: GABAPENTIN 300 MG CAPSULE PO SCH (21:52)
[2021-03-04] MEDS: FLUTICASONE/UMECLIDIN/VILANTER(100-62.5-25 TRELEGY ELLIPTA) INAHLER IH SCH (09:44)
[2021-03-04] MEDS: amLODIPine BESYLATE 10 MG TABLET (FP) PO SCH (09:44)
[2021-03-04 10:01] LABS: BASO % 0.8 % (0-2.0); EOS % 2.4 % (0-4.5); HEMATOCRIT 45.1 % (32.4-45.2); HEMOGLOBIN 15.3 GM/dL (10.7-15.3); LYMPH % 28.4 % (8-40); MCH 32.1 pg (25.7-33.7); MCHC 33.9 g/dl (32.0-36.0); MEAN CELL VOLUME 94.5 fl (80-96); MEAN PLT VOLUME 8.7 fl (7.5-11.1); MONO % 10.2 % (3.8-10.2); NEUT % 58.2 % (42.8-82.8); PLATELET COUNT 148 10^3/uL (134-434); RBC 4.77 M/mm3 (3.60-5.2); RDW 13.9 % (11.6-15.6); WHITE BLOOD COUNT 5.9 K/mm3 (4.0-10.0)
[2021-03-04 10:26] LABS: BLOOD UREA NITROGEN 20.9 mg/dL (7-18); CALCIUM 9.3 mg/dL (8.5-10.1)
[2021-03-04 10:27] LABS: ALBUMIN 3.1 g/dl (3.4-5.0)
[2021-03-04 10:29] LABS: CREATININE 0.9 mg/dL (0.55-1.3)
[2021-03-04 10:32] LABS: BILIRUBIN,TOTAL 1.3 mg/dL (0.2-1); TOT PROT 6.2 g/dl (6.4-8.2)
[2021-03-04] MEDS: FUROSEMIDE 20 MG TABLET (FP) PO SCH (14:39)
[2021-03-04] MEDS: GABAPENTIN 300 MG CAPSULE PO SCH (21:04)
[2021-03-05 09:18] LABS: BASO % 0.5 % (0-2.0); HEMATOCRIT 41.9 % (32.4-45.2); HEMOGLOBIN 14.5 GM/dL (10.7-15.3); LYMPH % 28.6 % (8-40); MCH 32.1 pg (25.7-33.7); MCHC 34.6 g/dl (32.0-36.0); MEAN CELL VOLUME 92.9 fl (80-96); MEAN PLT VOLUME 8.8 fl (7.5-11.1); MONO % 12.5 % (3.8-10.2); NEUT % 55.4 % (42.8-82.8); PLATELET COUNT 142 10^3/uL (134-434); RBC 4.51 M/mm3 (3.60-5.2); RDW 13.6 % (11.6-15.6); WHITE BLOOD COUNT 5.1 K/mm3 (4.0-10.0)
[2021-03-05 09:44] LABS: ALBUMIN 2.9 g/dl (3.4-5.0)
[2021-03-05 09:47] LABS: CREATININE 1.1 mg/dL (0.55-1.3)
[2021-03-05 09:49] LABS: BILIRUBIN,TOTAL 0.8 mg/dL (0.2-1)
[2021-03-05] MEDS: FLUTICASONE/UMECLIDIN/VILANTER(100-62.5-25 TRELEGY ELLIPTA) INAHLER IH SCH (10:16)
[2021-03-05] MEDS: FUROSEMIDE 20 MG TABLET (FP) PO SCH (10:42)
[2021-03-05] MEDS: amLODIPine BESYLATE 10 MG TABLET (FP) PO SCH (10:42)
[2021-03-05] MEDS: PANTOPRAZOLE SODIUM 40 MG VIAL IVPUSH SCH (15:01)
[2021-03-05] MEDS: POLYETHYLENE GLYCOL (HEALTHYLAX) 3350 17 GM PACKET PO SCH (21:09)
[2021-03-05] MEDS: GABAPENTIN 300 MG CAPSULE PO SCH (21:09)
[2021-03-06] MEDS: PANTOPRAZOLE SODIUM 40 MG VIAL IVPUSH SCH (10:28)
[2021-03-06] MEDS: FUROSEMIDE 20 MG TABLET (FP) PO SCH (10:28)
[2021-03-06] MEDS: amLODIPine BESYLATE 10 MG TABLET (FP) PO SCH (10:28)
[2021-03-06] MEDS: FLUTICASONE/UMECLIDIN/VILANTER(100-62.5-25 TRELEGY ELLIPTA) INAHLER IH SCH (10:28)
[2021-03-06] MEDS: POLYETHYLENE GLYCOL (HEALTHYLAX) 3350 17 GM PACKET PO SCH (10:28)
[2021-03-06] MEDS ORDERED: POLYETHYLENE GLYCOL (HEALTHYLAX) 3350 17 GM PACKET PO SCH (14:00)
[2021-03-06] MEDS: GABAPENTIN 300 MG CAPSULE PO SCH (21:25)
[2021-03-07 09:00] LABS: BASO % 0.7 % (0-2.0); EOS % 1.1 % (0-4.5); HEMATOCRIT 37.3 % (32.4-45.2); HEMOGLOBIN 12.8 GM/dL (10.7-15.3); LYMPH % 21.9 % (8-40); MCH 32.3 pg (25.7-33.7); MCHC 34.4 g/dl (32.0-36.0); MEAN CELL VOLUME 93.8 fl (80-96); MEAN PLT VOLUME 9.4 fl (7.5-11.1); MONO % 12.1 % (3.8-10.2); NEUT % 64.2 % (42.8-82.8); PLATELET COUNT 126 10^3/uL (134-434); RBC 3.97 M/mm3 (3.60-5.2); RDW 13.2 % (11.6-15.6); WHITE BLOOD COUNT 7.4 K/mm3 (4.0-10.0)
[2021-03-07 09:20] LABS: ALBUMIN 2.8 g/dl (3.4-5.0); BLOOD UREA NITROGEN 8.9 mg/dL (7-18); CALCIUM 8.9 mg/dL (8.5-10.1)
[2021-03-07 09:24] LABS: CREATININE 0.8 mg/dL (0.55-1.3)
[2021-03-07 09:25] LABS: TOT PROT 5.7 g/dl (6.4-8.2)
[2021-03-07] MEDS: FUROSEMIDE 20 MG TABLET (FP) PO SCH (13:12)
[2021-03-07] MEDS: PANTOPRAZOLE SODIUM 40 MG VIAL IVPUSH SCH (13:12)
[2021-03-07] MEDS: amLODIPine BESYLATE 10 MG TABLET (FP) PO SCH (13:12)
[2021-03-07] MEDS: FLUTICASONE/UMECLIDIN/VILANTER(100-62.5-25 TRELEGY ELLIPTA) INAHLER IH SCH (13:13)
[2021-03-07] MEDS ORDERED: ACETAMINOPHEN 1000 MG/100 ML VIAL IVPB PRN (13:18)
[2021-03-07] MEDS: GABAPENTIN 300 MG CAPSULE PO SCH (21:52)
[2021-03-08 09:43] LABS: BASO % 0.6 % (0-2.0); EOS % 1.1 % (0-4.5); HEMATOCRIT 40.2 % (32.4-45.2); HEMOGLOBIN 13.4 GM/dL (10.7-15.3); LYMPH % 22.3 % (8-40); MCH 31.5 pg (25.7-33.7); MCHC 33.3 g/dl (32.0-36.0); MEAN CELL VOLUME 94.7 fl (80-96); MEAN PLT VOLUME 9.9 fl (7.5-11.1); MONO % 11.8 % (3.8-10.2); NEUT % 64.2 % (42.8-82.8); PLATELET COUNT 159 10^3/uL (134-434); RBC 4.24 M/mm3 (3.60-5.2); RDW 13.4 % (11.6-15.6); WHITE BLOOD COUNT 6.4 K/mm3 (4.0-10.0)
[2021-03-08 10:10] LABS: BLOOD UREA NITROGEN 7.4 mg/dL (7-18); CALCIUM 9.1 mg/dL (8.5-10.1)
[2021-03-08 10:13] LABS: BILIRUBIN,TOTAL 1.3 mg/dL (0.2-1); CREATININE 0.8 mg/dL (0.55-1.3)
[2021-03-08] MEDS ORDERED: PT OWN MED DRAWER 7, Y5N ONE ×2 (10:44→21:31)
[2021-03-08] MEDS: DULoxetine HCL 20 MG CAPSULE.DR PO SCH (11:01)
[2021-03-08] MEDS: risperiDONE 0.5 MG TABLET PO SCH ×2 (11:01→22:02)
[2021-03-08] MEDS: FLUTICASONE/UMECLIDIN/VILANTER(100-62.5-25 TRELEGY ELLIPTA) INAHLER IH SCH (11:02)
[2021-03-08] MEDS: amLODIPine BESYLATE 10 MG TABLET (FP) PO SCH (11:02)
[2021-03-08] MEDS: FUROSEMIDE 20 MG TABLET (FP) PO SCH (11:02)
[2021-03-08] MEDS: PANTOPRAZOLE SODIUM 40 MG VIAL IVPUSH SCH (11:02)
[2021-03-08] MEDS ORDERED: INSULIN (NOVOLOG) ASPART 100 UNITS/ML 10ML VIAL ONE (21:32)
[2021-03-08] MEDS: GABAPENTIN 300 MG CAPSULE PO SCH (22:02)
[2021-03-09] MEDS ORDERED: PT OWN MED DRAWER 7, Y5N ONE ×2 (10:22→21:16)
[2021-03-09] MEDS: amLODIPine BESYLATE 10 MG TABLET (FP) PO SCH (10:58)
[2021-03-09] MEDS: PANTOPRAZOLE SODIUM 40 MG VIAL IVPUSH SCH (10:58)
[2021-03-09] MEDS: DULoxetine HCL 20 MG CAPSULE.DR PO SCH (10:58)
[2021-03-09] MEDS: FUROSEMIDE 20 MG TABLET (FP) PO SCH (10:58)
[2021-03-09] MEDS: FLUTICASONE/UMECLIDIN/VILANTER(100-62.5-25 TRELEGY ELLIPTA) INAHLER IH SCH (10:59)
[2021-03-09] MEDS: risperiDONE 0.5 MG TABLET PO SCH ×2 (10:59→21:56)
[2021-03-09] MEDS: GABAPENTIN 300 MG CAPSULE PO SCH (21:56)
[2021-03-09] MEDS: ACETAMINOPHEN 325 MG TABLET (FP) PO PRN (22:00)
[2021-03-10] MEDS: amLODIPine BESYLATE 10 MG TABLET (FP) PO SCH (10:00)
[2021-03-10] MEDS: risperiDONE 0.5 MG TABLET PO SCH ×2 (10:01→21:07)
[2021-03-10] MEDS: DULoxetine HCL 20 MG CAPSULE.DR PO SCH (10:01)
[2021-03-10] MEDS: FLUTICASONE/UMECLIDIN/VILANTER(100-62.5-25 TRELEGY ELLIPTA) INAHLER IH SCH (10:01)
[2021-03-10] MEDS: FUROSEMIDE 20 MG TABLET (FP) PO SCH (10:01)
[2021-03-10] MEDS ORDERED: PT OWN MED DRAWER 7, Y5N ONE ×2 (10:06→20:35)
[2021-03-10] MEDS: PANTOPRAZOLE SODIUM 40 MG VIAL IVPUSH SCH (11:28)
[2021-03-10 20:08] VITALS: BMI 23.1
[2021-03-10] MEDS: GABAPENTIN 300 MG CAPSULE PO SCH (21:06)
[2021-03-11] MEDS ORDERED: PT OWN MED DRAWER 7, Y5N ONE ×2 (09:26→20:46)
[2021-03-11] MEDS: MULTIVITAMINS (DAILY MVI) TABLET (FP) PO SCH (09:37)
[2021-03-11] MEDS: DULoxetine HCL 20 MG CAPSULE.DR PO SCH (09:37)
[2021-03-11] MEDS: FUROSEMIDE 20 MG TABLET (FP) PO SCH (09:37)
[2021-03-11] MEDS: amLODIPine BESYLATE 10 MG TABLET (FP) PO SCH (09:37)
[2021-03-11] MEDS: PANTOPRAZOLE SODIUM 40 MG VIAL IVPUSH SCH (09:38)
[2021-03-11] MEDS ORDERED: MULTIVITAMINS (DAILY MVI) TABLET (FP) PO SCH (10:00)
[2021-03-11] MEDS: FLUTICASONE/UMECLIDIN/VILANTER(100-62.5-25 TRELEGY ELLIPTA) INAHLER IH SCH (10:01)
[2021-03-11] MEDS: risperiDONE 0.5 MG TABLET PO SCH ×2 (10:01→21:05)
[2021-03-11] MEDS: ACETAMINOPHEN 325 MG TABLET (FP) PO PRN (20:12)
[2021-03-11] MEDS: GABAPENTIN 300 MG CAPSULE PO SCH (21:05)
[2021-03-12 08:31] LABS: BASO % 0.6 % (0-2.0); EOS % 2.7 % (0-4.5); HEMATOCRIT 37.9 % (32.4-45.2); HEMOGLOBIN 12.8 GM/dL (10.7-15.3); LYMPH % 26.5 % (8-40); MCH 32.1 pg (25.7-33.7); MCHC 33.7 g/dl (32.0-36.0); MEAN CELL VOLUME 95.2 fl (80-96); MEAN PLT VOLUME 8.9 fl (7.5-11.1); MONO % 11.1 % (3.8-10.2); NEUT % 59.1 % (42.8-82.8); PLATELET COUNT 134 10^3/uL (134-434); RBC 3.99 M/mm3 (3.60-5.2); RDW 13.5 % (11.6-15.6); WHITE BLOOD COUNT 4.7 K/mm3 (4.0-10.0)
[2021-03-12 09:12] LABS: BLOOD UREA NITROGEN 7.2 mg/dL (7-18)
[2021-03-12 09:14] LABS: ALBUMIN 2.8 g/dl (3.4-5.0); CALCIUM 9.1 mg/dL (8.5-10.1)
[2021-03-12 09:17] LABS: CREATININE 0.9 mg/dL (0.55-1.3)
[2021-03-12 09:19] LABS: BILIRUBIN,TOTAL 0.3 mg/dL (0.2-1); TOT PROT 5.8 g/dl (6.4-8.2)
[2021-03-12] MEDS ORDERED: PT OWN MED DRAWER 7, Y5N ONE (10:09)
[2021-03-12] MEDS: DULoxetine HCL 20 MG CAPSULE.DR PO SCH (10:10)
[2021-03-12] MEDS: MULTIVITAMINS (DAILY MVI) TABLET (FP) PO SCH (10:10)
[2021-03-12] MEDS: FUROSEMIDE 20 MG TABLET (FP) PO SCH (10:10)
[2021-03-12] MEDS: PANTOPRAZOLE SODIUM 40 MG VIAL IVPUSH SCH (10:10)
[2021-03-12] MEDS: amLODIPine BESYLATE 10 MG TABLET (FP) PO SCH (10:10)
[2021-03-12] MEDS: risperiDONE 0.5 MG TABLET PO SCH (10:11)
[2021-03-12] MEDS: FLUTICASONE/UMECLIDIN/VILANTER(100-62.5-25 TRELEGY ELLIPTA) INAHLER IH SCH (10:13)
[2021-03-12 10:47] VITALS: BP 118/69; PULSE 66; TEMP 98.9
== END 2021-03-12 16:28 | disposition home or self-care (01) | DRG 57 ==
LOC: JER 18:35 → JERBED 22:03 → J6S 03-03 18:06
PROVIDERS: ADMIT Internal Medicine; ATTEND Family Medicine
DX: G20 Parkinson's disease (principal); J96.10 Chronic respiratory failure, unspecified whether with hypoxia or hypercapnia; I50.32 Chronic diastolic (congestive) heart failure; K56.600 Partial intestinal obstruction, unspecified as to cause; F05 Delirium due to known physiological condition; J44.9 Chronic obstructive pulmonary disease, unspecified; Z99.81 Dependence on supplemental oxygen; I11.0 Hypertensive heart disease with heart failure; Z86.718 Personal history of other venous thrombosis and embolism; E86.0 Dehydration; G47.00 Insomnia, unspecified; R91.1 Solitary pulmonary nodule; R11.10 Vomiting, unspecified
CPT/HCPCS: 36415; 70450-TC; 71045-TC-FY; 74018-TC-FY; 74019-TC-FY; 74177-TC; 76700-TC; 80053; 81003; 82550; 82962; 83690; 83735; 83880; 84439; 84443; 84484; 85025; 85610; 85730; 87086; 93005; 93010; 97116-GP; 97162-GP; 99285-25; C9803; J0131; Q9967; U0003; U0005

== ENCOUNTER 2021-05-08 08:52 | Inpatient (IN) | payer OTHER, MEDICARE ==
[2021-05-08 11:31] LABS: HEMATOCRIT 41.4 % (32.4-45.2); HEMOGLOBIN 13.6 GM/dL (10.7-15.3); MCH 30.4 pg (25.7-33.7); MCHC 32.8 g/dl (32.0-36.0); MEAN CELL VOLUME 92.8 fl (80-96); MEAN PLT VOLUME 8.8 fl (7.5-11.1); PLATELET COUNT 138 10^3/uL (134-434); RBC 4.46 M/mm3 (3.60-5.2); RDW 16.1 % (11.6-15.6); WHITE BLOOD COUNT 3.8 K/mm3 (4.0-10.0)
[2021-05-08 11:51] LABS: CALCIUM 9.1 mg/dL (8.5-10.1)
[2021-05-08 11:52] LABS: ALBUMIN 3.4 g/dl (3.4-5.0); BLOOD UREA NITROGEN 15.8 mg/dL (7-18)
[2021-05-08 11:55] LABS: CREATININE 1.3 mg/dL (0.55-1.3)
[2021-05-08 11:56] LABS: TOT PROT 6.6 g/dl (6.4-8.2)
[2021-05-08 11:57] LABS: BILIRUBIN,TOTAL 0.6 mg/dL (0.2-1)
[2021-05-08 12:00] LABS: N-TERMINAL BNP 5322.6 pg/ml (5-450)
[2021-05-08] MEDS ORDERED: FUROSEMIDE 40 MG/4 ML INJECTABLE VIAL IVPUSH ONE (12:32)
[2021-05-08 12:43] LABS: ANISOCYTOSIS 0; HELMET CELLS 0; HOWELL-JOLLY BODIES 0; MACROCYTOSIS 0; OVALOCYTE 0; PLATELET ESTIMATE DECREASED; ROULEAU 0; SICKELED CELLS 0; TARGET CELLS 0; TEAR DROP CELLS 0; TOXIC GRANULATION 0
[2021-05-08] MEDS ORDERED: FUROSEMIDE 40 MG/4 ML INJECTABLE VIAL ONE (12:55)
[2021-05-08 14:07] LABS: BLOOD UREA NITROGEN 14.4 mg/dL (7-18); CALCIUM 9.2 mg/dL (8.5-10.1)
[2021-05-08 14:11] LABS: CREATININE 1.2 mg/dL (0.55-1.3)
[2021-05-08] MEDS ORDERED: ACETAMINOPHEN 325 MG TABLET (FP) PO PRN (16:16)
[2021-05-08] MEDS ORDERED: ALBUTEROL SO4 2.5/IPRATROPIUM 0.5 INH SOL 3 ML VIAL.NEB. NEB PRN (16:16)
[2021-05-08] MEDS: risperiDONE 1 MG TABLET PO SCH (21:26)
[2021-05-08] MEDS: GABAPENTIN 300 MG CAPSULE PO SCH (21:26)
[2021-05-08] MEDS ORDERED: diphenhydrAMINE HCL 25 MG CAPSULE (FP) PO PRN (21:36)
[2021-05-09 08:39] LABS: HEMATOCRIT 41.5 % (32.4-45.2); HEMOGLOBIN 13.5 GM/dL (10.7-15.3); MCH 30.1 pg (25.7-33.7); MCHC 32.6 g/dl (32.0-36.0); MEAN CELL VOLUME 92.4 fl (80-96); MEAN PLT VOLUME 8.4 fl (7.5-11.1); PLATELET COUNT 138 10^3/uL (134-434); RDW 15.7 % (11.6-15.6); WHITE BLOOD COUNT 2.8 K/mm3 (4.0-10.0)
[2021-05-09 09:08] LABS: ALBUMIN 3.2 g/dl (3.4-5.0); BLOOD UREA NITROGEN 9.7 mg/dL (7-18)
[2021-05-09 09:10] LABS: BILIRUBIN,TOTAL 1.1 mg/dL (0.2-1); TOT PROT 6.2 g/dl (6.4-8.2)
[2021-05-09] MEDS: amLODIPine BESYLATE 5 MG TABLET (FP) PO SCH (09:26)
[2021-05-09] MEDS: risperiDONE 1 MG TABLET PO SCH ×2 (09:26→22:05)
[2021-05-09] MEDS: FUROSEMIDE 40 MG/4 ML INJECTABLE VIAL IVPUSH SCH (09:27)
[2021-05-09] MEDS: BUDESONIDE/FORMETEROL FUMARATE 160/4.5 mcg INHALER IH SCH ×2 (11:48→22:05)
[2021-05-09] MEDS: TIOTROPIUM BROMIDE 2.5 MCG (SPIRIVA) RESPIMAT INHALER IH SCH (11:48)
[2021-05-09] MEDS: SOLIFENACIN SUCCINATE 5 MG TAB PO SCH (11:48)
[2021-05-09] MEDS: GABAPENTIN 300 MG CAPSULE PO SCH (22:04)
[2021-05-09] MEDS: DOCUSATE SODIUM 100 MG CAPSULE (FP) PO SCH (22:04)
[2021-05-10] MEDS: SOLIFENACIN SUCCINATE 5 MG TAB PO SCH (10:18)
[2021-05-10] MEDS: risperiDONE 1 MG TABLET PO SCH ×2 (10:18→22:53)
[2021-05-10] MEDS: amLODIPine BESYLATE 5 MG TABLET (FP) PO SCH (10:19)
[2021-05-10] MEDS: FUROSEMIDE 40 MG/4 ML INJECTABLE VIAL IVPUSH SCH ×2 (10:19→14:56)
[2021-05-10] MEDS: DOCUSATE SODIUM 100 MG CAPSULE (FP) PO SCH ×2 (10:19→23:00)
[2021-05-10] MEDS: TIOTROPIUM BROMIDE 2.5 MCG (SPIRIVA) RESPIMAT INHALER IH SCH (10:23)
[2021-05-10] MEDS: BUDESONIDE/FORMETEROL FUMARATE 160/4.5 mcg INHALER IH SCH ×2 (10:23→22:54)
[2021-05-10 14:14] VITALS: BMI 26.3
[2021-05-10] MEDS ORDERED: MAGNESIUM CITRATE 300 ML BOTTLE PO ONE (20:06)
[2021-05-10] MEDS: GABAPENTIN 300 MG CAPSULE PO SCH (22:52)
[2021-05-11] MEDS: FUROSEMIDE 40 MG/4 ML INJECTABLE VIAL IVPUSH SCH (05:15)
[2021-05-11] MEDS ORDERED: SODIUM CHLORIDE NASAL SPRAY 44 ML BOTTLE NS PRN (06:47)
[2021-05-11] MEDS: risperiDONE 1 MG TABLET PO SCH (10:44)
[2021-05-11] MEDS: amLODIPine BESYLATE 5 MG TABLET (FP) PO SCH (10:45)
[2021-05-11] MEDS: SOLIFENACIN SUCCINATE 5 MG TAB PO SCH (10:45)
[2021-05-11] MEDS: DOCUSATE SODIUM 100 MG CAPSULE (FP) PO SCH (10:45)
[2021-05-11] MEDS: BUDESONIDE/FORMETEROL FUMARATE 160/4.5 mcg INHALER IH SCH (10:46)
[2021-05-11] MEDS: TIOTROPIUM BROMIDE 2.5 MCG (SPIRIVA) RESPIMAT INHALER IH SCH (10:47)
[2021-05-11 13:11] LABS: HEMATOCRIT 44.6 % (32.4-45.2); HEMOGLOBIN 14.3 GM/dL (10.7-15.3); MCH 29.5 pg (25.7-33.7); MCHC 32.1 g/dl (32.0-36.0); MEAN CELL VOLUME 91.9 fl (80-96); MEAN PLT VOLUME 8.1 fl (7.5-11.1); PLATELET COUNT 144 10^3/uL (134-434); RBC 4.85 M/mm3 (3.60-5.2); RDW 15.7 % (11.6-15.6); WHITE BLOOD COUNT 3.8 K/mm3 (4.0-10.0)
[2021-05-11 13:28] VITALS: BP 136/78; TEMP 98.4
[2021-05-11 13:40] LABS: BLOOD UREA NITROGEN 8.2 mg/dL (7-18); CALCIUM 9.5 mg/dL (8.5-10.1); MAGNESIUM 2.1 mg/dL (1.8-2.4)
[2021-05-11 14:33] VITALS: PULSE 95
[2021-05-12] MEDS ORDERED: FUROSEMIDE 40 MG TABLET (FP) PO SCH (10:00)
== END 2021-05-11 16:29 | disposition home health service (06) | DRG 291 ==
LOC: JER 08:52 → JERBED 10:53 → J7W 18:41
PROVIDERS: ADMIT Family Medicine; ATTEND Family Medicine
DX: I11.0 Hypertensive heart disease with heart failure (principal); I50.33 Acute on chronic diastolic (congestive) heart failure; J96.21 Acute and chronic respiratory failure with hypoxia; N17.9 Acute kidney failure, unspecified; J44.9 Chronic obstructive pulmonary disease, unspecified; J45.909 Unspecified asthma, uncomplicated; N32.89 Other specified disorders of bladder; G20 Parkinson's disease; F31.9 Bipolar disorder, unspecified; K59.00 Constipation, unspecified; E87.70 Fluid overload, unspecified; F20.9 Schizophrenia, unspecified; R42 Dizziness and giddiness; E87.5 Hyperkalemia; Z99.81 Dependence on supplemental oxygen; Z86.718 Personal history of other venous thrombosis and embolism; Z96.653 Presence of artificial knee joint, bilateral
CPT/HCPCS: 36415; 71045-TC-FY; 80048; 80053; 80061; 82550; 83036; 83735; 83880; 84443; 84484; 85025; 85027; 87804; 93005; 93010; 94761; 97116-GP; 97161-GP; 99285-25; C9803; J2794; U0003; U0005

== ENCOUNTER 2022-05-22 23:28 | Inpatient (IN) | payer OTHER, MEDICARE ==
[2022-05-23] MEDS ORDERED: SODIUM PHOSPHATE/NA BIPHOS 133 ML ENEMA PR ONE (00:21)
[2022-05-23] MEDS ORDERED: POLYETHYLENE GLYCOL (HEALTHYLAX) 3350 17 GM PACKET PO SCH (00:30)
[2022-05-23] MEDS ORDERED: ALBUTEROL SO4 2.5/IPRATROPIUM 0.5 INH SOL 3 ML VIAL.NEB. NEB ONE ×6 (00:53→17:35)
[2022-05-23 01:24] LABS: VENOUS BASE EXCESS 6.2 mmol/L (-2-2); VENOUS O2 SATURATION 78.2 % (70-80); VENOUS PCO2 53.6 mmHg (38-52); VENOUS PH 7.4 (7.310-7.410)
[2022-05-23 01:26] LABS: EOS % 2.6 % (0-4.5); HEMATOCRIT 38.8 % (32.4-45.2); HEMOGLOBIN 12.3 GM/dL (10.7-15.3); LYMPH % 23.9 % (8-40); MCH 30.6 pg (25.7-33.7); MCHC 31.7 g/dl (32.0-36.0); MEAN CELL VOLUME 96.4 fl (80-96); MEAN PLT VOLUME 8.7 fl (7.5-11.1); MONO % 13.9 % (3.8-10.2); NEUT % 58.6 % (42.8-82.8); PLATELET COUNT 117 10^3/uL (134-434); RBC 4.02 M/mm3 (3.60-5.2); RDW 16.9 % (11.6-15.6); WHITE BLOOD COUNT 3.4 K/mm3 (4.0-10.0)
[2022-05-23 01:34] LABS: INR 1.35 (0.83-1.09); PROTHROMBIN TIME (PATIENT) 15.6 SEC (9.7-13.0)
[2022-05-23 01:37] LABS: ACTIVATED PTT 29.9 SECONDS (25.2-36.5)
[2022-05-23 01:54] LABS: ALBUMIN 3.5 g/dl (3.4-5.0); BLOOD UREA NITROGEN 28.1 mg/dL (7-18)
[2022-05-23 01:58] LABS: CREATININE 1.3 mg/dL (0.55-1.3)
[2022-05-23 02:00] LABS: BILIRUBIN,TOTAL 0.5 mg/dL (0.2-1); TOT PROT 6.2 g/dl (6.4-8.2)
[2022-05-23] MEDS ORDERED: methylPREDNISolone NA SUCC 125 MG/2 ML VIAL IVPB ONE (02:11)
[2022-05-23] MEDS ORDERED: MAGNESIUM SULF 50% (8.12 MEQ/2 ML-1 GM VIAL) IVPB ONE (02:11)
[2022-05-23] MEDS ORDERED: LACTATED RINGERS SOLUTION 1000 ML INFUS.BAG IV ONE (02:12)
[2022-05-23] MEDS ORDERED: MAGNESIUM 1GM/D5W - 1 GM/100 ML IVPB IVPB ONE (02:30)
[2022-05-23] MEDS ORDERED: methylPREDNISolone NA SUCC 125 MG/2 ML VIAL ONE (02:30)
[2022-05-23] MEDS ORDERED: SODIUM CHLORIDE 0.9% 500 ML INFUS.BAG IV ONE (02:37)
[2022-05-23] MEDS ORDERED: ACETAMINOPHEN INJECTION 100 ML IVPB ONE (03:30)
[2022-05-23] MEDS ORDERED: ACETAMINOPHEN 1000 MG/100 ML BAG IVPB ONE (03:32)
[2022-05-23] MEDS ORDERED: CEFTRIAXONE 1 GM in DEXTROSE 5%-WATER - 100 ML IVPB ONE (06:27)
[2022-05-23] MEDS ORDERED: AZITHROMYCIN IVPB 500 MG in DEXTROSE 5%-WATER - 250 ML IVPB ONE (06:27)
[2022-05-23] MEDS ORDERED: DOCUSATE SODIUM 100 MG CAPSULE (FP) PO PRN (06:29)
[2022-05-23] MEDS ORDERED: CEFTRIAXONE 1 GM/50 ML BAG ONE (06:42)
[2022-05-23] MEDS ORDERED: ACETAMINOPHEN 1000 MG/100 ML BAG IVPB PRN (06:45)
[2022-05-23] MEDS ORDERED: ALBUTEROL SO4 2.5/IPRATROPIUM 0.5 INH SOL 3 ML VIAL.NEB. NEB PRN (06:51)
[2022-05-23] MEDS ORDERED: AZITHROMYCIN IVPB 500 MG/250 ML BAG IVPB ONE ×2 (07:50→07:51)
[2022-05-23] MEDS: INSULIN SLIDING SCALE (NOVOLOG) 1 VIAL SQ SCH ×2 (07:59→22:22)
[2022-05-23 08:41] LABS: PH,URINE 5.5 (5.0-8.0); URINE APPEARANCE CLOUDY; URINE BILIRUBIN NEGATIVE (NEGATIVE); URINE COLOR YELLOW; URINE GLUCOSE (UA) NEGATIVE (NEGATIVE); URINE KETONE NEGATIVE (NEGATIVE)
[2022-05-23 08:42] LABS: EPI CELLS 6.1 /uL (0-25.1); HYALINE CASTS 0.62 /uL (0-3.1); URINE BACTERIA 7.6 /uL (0-1359); URINE LEUK ESTERASE TRACE (NEGATIVE); URINE NITRITE NEGATIVE (NEGATIVE); URINE PROTEIN 1+ (NEGATIVE); URINE RBC 11.4 /uL (0-23.9); URINE WBC 28.3 /uL (0-25.8)
[2022-05-23] MEDS ORDERED: methylPREDNISolone NA SUCC 40 MG/1 ML VIAL ONE (10:22)
[2022-05-23] MEDS: methylPREDNISolone NA SUCC 40 MG/1 ML VIAL IVPUSH SCH (10:29)
[2022-05-23] MEDS ORDERED: FUROSEMIDE 40 MG/4 ML INJECTABLE VIAL ONE (14:30)
[2022-05-23] MEDS ORDERED: HEPARIN NA (PORCINE) 5,000 UNITS/ML 1ML VIAL ONE (14:31)
[2022-05-23] MEDS ORDERED: ALBUTEROL SO4 0.083% IH SOL 2.5 MG/3 ML VIAL.NEB. NEB PRN (14:52)
[2022-05-23] MEDS: ALBUTEROL SO4 2.5/IPRATROPIUM 0.5 INH SOL 3 ML VIAL.NEB. NEB SCH (21:21)
[2022-05-23] MEDS ORDERED: methylPREDNISolone NA SUCC 40 MG/1 ML VIAL IVPUSH ONE (22:27)
[2022-05-23] MEDS: HEPARIN NA (PORCINE) 5,000 UNITS/ML 1ML VIAL SQ SCH (22:40)
[2022-05-24] MEDS: methylPREDNISolone NA SUCC 40 MG/1 ML VIAL IVPUSH SCH ×3 (04:06→18:12)
[2022-05-24] MEDS: FUROSEMIDE 40 MG/4 ML INJECTABLE VIAL IVPUSH SCH ×2 (06:35→13:58)
[2022-05-24] MEDS: INSULIN SLIDING SCALE (NOVOLOG) 1 VIAL SQ SCH ×4 (06:35→23:00)
[2022-05-24] MEDS: HEPARIN NA (PORCINE) 5,000 UNITS/ML 1ML VIAL SQ SCH ×3 (06:35→21:53)
[2022-05-24] MEDS: ALBUTEROL SO4 2.5/IPRATROPIUM 0.5 INH SOL 3 ML VIAL.NEB. NEB SCH ×3 (08:25→20:11)
[2022-05-24 08:33] LABS: BASO % 0.2 % (0-2.0); HEMATOCRIT 40.1 % (32.4-45.2); HEMOGLOBIN 13.1 GM/dL (10.7-15.3); MCH 31.3 pg (25.7-33.7); MCHC 32.6 g/dl (32.0-36.0); MEAN CELL VOLUME 96.1 fl (80-96); MEAN PLT VOLUME 9.2 fl (7.5-11.1); MONO % 7.6 % (3.8-10.2); NEUT % 78.2 % (42.8-82.8); PLATELET COUNT 120 10^3/uL (134-434); RBC 4.17 M/mm3 (3.60-5.2); RDW 16.7 % (11.6-15.6); WHITE BLOOD COUNT 4.1 K/mm3 (4.0-10.0)
[2022-05-24 09:08] LABS: CALCIUM 9.4 mg/dL (8.5-10.1); MAGNESIUM 2.1 mg/dL (1.8-2.4)
[2022-05-24 09:11] LABS: PHOSPHOROUS 3.8 mg/dL (2.5-4.9)
[2022-05-24] MEDS ORDERED: VANCOMYCIN 1 GM in D5W (PRE-DOCKED) 1,000 MG/250 ML IVPB SCH (10:00)
[2022-05-24] MEDS ORDERED: VANCOMYCIN 1 GM/200 ML PREMIX BAG (RESTRICTED TO ID ONLY) IVPB SCH (12:00)
[2022-05-25] MEDS: methylPREDNISolone NA SUCC 40 MG/1 ML VIAL IVPUSH SCH ×3 (03:11→17:00)
[2022-05-25] MEDS: VANCOMYCIN 1 GM/200 ML PREMIX BAG (RESTRICTED TO ID ONLY) IVPB SCH ×2 (03:11→13:01)
[2022-05-25] MEDS: FUROSEMIDE 40 MG/4 ML INJECTABLE VIAL IVPUSH SCH ×3 (06:18→13:01)
[2022-05-25] MEDS: HEPARIN NA (PORCINE) 5,000 UNITS/ML 1ML VIAL SQ SCH ×3 (06:19→21:46)
[2022-05-25] MEDS: INSULIN SLIDING SCALE (NOVOLOG) 1 VIAL SQ SCH ×4 (06:26→21:52)
[2022-05-25] MEDS: ALBUTEROL SO4 2.5/IPRATROPIUM 0.5 INH SOL 3 ML VIAL.NEB. NEB SCH ×3 (07:40→20:38)
[2022-05-26] MEDS: VANCOMYCIN 1 GM/200 ML PREMIX BAG (RESTRICTED TO ID ONLY) IVPB SCH ×2 (01:00→13:15)
[2022-05-26] MEDS: methylPREDNISolone NA SUCC 40 MG/1 ML VIAL IVPUSH SCH ×3 (01:00→17:37)
[2022-05-26] MEDS: FUROSEMIDE 40 MG/4 ML INJECTABLE VIAL IVPUSH SCH ×2 (06:09→13:36)
[2022-05-26] MEDS: INSULIN SLIDING SCALE (NOVOLOG) 1 VIAL SQ SCH ×4 (06:09→21:51)
[2022-05-26] MEDS: HEPARIN NA (PORCINE) 5,000 UNITS/ML 1ML VIAL SQ SCH ×3 (06:09→21:52)
[2022-05-26] MEDS: ALBUTEROL SO4 2.5/IPRATROPIUM 0.5 INH SOL 3 ML VIAL.NEB. NEB SCH ×3 (07:20→21:11)
[2022-05-26 07:58] LABS: HEMATOCRIT 45.3 % (32.4-45.2); HEMOGLOBIN 14.7 GM/dL (10.7-15.3); LYMPH % 13.2 % (8-40); MCH 31.2 pg (25.7-33.7); MCHC 32.4 g/dl (32.0-36.0); MEAN CELL VOLUME 96.1 fl (80-96); MEAN PLT VOLUME 9.6 fl (7.5-11.1); MONO % 10.3 % (3.8-10.2); NEUT % 76.5 % (42.8-82.8); PLATELET COUNT 130 10^3/uL (134-434); RBC 4.71 M/mm3 (3.60-5.2); RDW 16.8 % (11.6-15.6); WHITE BLOOD COUNT 5.9 K/mm3 (4.0-10.0)
[2022-05-26 08:15] LABS: BLOOD UREA NITROGEN 33.1 mg/dL (7-18); CALCIUM 10.3 mg/dL (8.5-10.1)
[2022-05-26 08:18] LABS: CREATININE 1.4 mg/dL (0.55-1.3)
[2022-05-26 08:20] LABS: BILIRUBIN,TOTAL 1.7 mg/dL (0.2-1); TOT PROT 7.5 g/dl (6.4-8.2)
[2022-05-26 08:45] LABS: ALBUMIN 4.3 g/dl (3.4-5.0)
[2022-05-27] MEDS: methylPREDNISolone NA SUCC 40 MG/1 ML VIAL IVPUSH SCH (02:00)
[2022-05-27] MEDS: INSULIN SLIDING SCALE (NOVOLOG) 1 VIAL SQ SCH ×4 (06:18→22:51)
[2022-05-27] MEDS: HEPARIN NA (PORCINE) 5,000 UNITS/ML 1ML VIAL SQ SCH ×3 (06:59→22:37)
[2022-05-27] MEDS: ALBUTEROL SO4 2.5/IPRATROPIUM 0.5 INH SOL 3 ML VIAL.NEB. NEB SCH ×3 (07:45→20:36)
[2022-05-27 08:09] LABS: BLOOD UREA NITROGEN 36.6 mg/dL (7-18)
[2022-05-27 08:11] LABS: CALCIUM 10.2 mg/dL (8.5-10.1)
[2022-05-27 08:12] LABS: CREATININE 1.1 mg/dL (0.55-1.3)
[2022-05-27] MEDS ORDERED: POTASSIUM CHLORIDE TABS 10 MEQ TABLET.ER (FP) PO ONE (08:58)
[2022-05-27] MEDS: predniSONE 20 MG TABLET (UD) PO SCH ×2 (09:50→22:37)
[2022-05-27] MEDS: FUROSEMIDE 40 MG TABLET (FP) PO SCH (09:50)
[2022-05-27] MEDS: risperiDONE 0.25 MG TABLET PO SCH ×2 (10:46→22:37)
[2022-05-27] MEDS: VANCOMYCIN/WATER 1250 MG 1,250 MG/250 ML BAG IVPB SCH (16:55)
[2022-05-27] MEDS: ACETAMINOPHEN 325 MG TABLET (FP) PO PRN (22:37)
[2022-05-28] MEDS: HEPARIN NA (PORCINE) 5,000 UNITS/ML 1ML VIAL SQ SCH (06:15)
[2022-05-28] MEDS: INSULIN SLIDING SCALE (NOVOLOG) 1 VIAL SQ SCH ×4 (06:15→23:05)
[2022-05-28] MEDS: ALBUTEROL SO4 2.5/IPRATROPIUM 0.5 INH SOL 3 ML VIAL.NEB. NEB SCH ×2 (08:12→14:46)
[2022-05-28 08:32] LABS: HEMATOCRIT 43.8 % (32.4-45.2); HEMOGLOBIN 14.3 GM/dL (10.7-15.3); MCH 31.1 pg (25.7-33.7); MCHC 32.7 g/dl (32.0-36.0); MEAN CELL VOLUME 95.2 fl (80-96); MEAN PLT VOLUME 8.9 fl (7.5-11.1); PLATELET COUNT 96 10^3/uL (134-434); RBC 4.61 M/mm3 (3.60-5.2); RDW 16.2 % (11.6-15.6); WHITE BLOOD COUNT 6.4 K/mm3 (4.0-10.0)
[2022-05-28 08:50] LABS: ALBUMIN 3.9 g/dl (3.4-5.0); BLOOD UREA NITROGEN 34.4 mg/dL (7-18)
[2022-05-28 08:53] LABS: CREATININE 1.3 mg/dL (0.55-1.3)
[2022-05-28 08:54] LABS: BILIRUBIN,TOTAL 1.8 mg/dL (0.2-1); TOT PROT 6.7 g/dl (6.4-8.2)
[2022-05-28] MEDS: POTASSIUM CHLORIDE TABS 10 MEQ TABLET.ER (FP) PO SCH (10:32)
[2022-05-28] MEDS: predniSONE 20 MG TABLET (UD) PO SCH ×2 (10:32→23:05)
[2022-05-28] MEDS: risperiDONE 0.25 MG TABLET PO SCH ×2 (10:32→23:05)
[2022-05-28] MEDS: LACTULOSE 20 GM/30 ML UDC (FOR ORAL USE ONLY) PO SCH (10:32)
[2022-05-28] MEDS: FUROSEMIDE 40 MG TABLET (FP) PO SCH (10:32)
[2022-05-28] MEDS: RIFAXIMIN 550 MG TABLET PO SCH ×3 (10:33→23:06)
[2022-05-28] MEDS: POTASSIUM CHLORIDE TABS 20 MEQ TABLET.ER (FP) PO SCH (13:57)
[2022-05-28] MEDS: ALBUMIN HUMAN 25% 12.5 GM/50 ML VIAL IV SCH ×2 (14:21→14:22)
[2022-05-28] MEDS ORDERED: clonazePAM 0.5 MG TABLET PO ONE (15:31)
[2022-05-28] MEDS: VANCOMYCIN/WATER 1250 MG 1,250 MG/250 ML BAG IVPB SCH (16:21)
[2022-05-29] MEDS: INSULIN SLIDING SCALE (NOVOLOG) 1 VIAL SQ SCH ×4 (06:33→22:27)
[2022-05-29] MEDS: risperiDONE 0.5 MG TABLET PO SCH ×2 (06:37→22:16)
[2022-05-29 08:37] LABS: BASO % 0.5 % (0-2.0); EOS % 0.1 % (0-4.5); HEMATOCRIT 43.9 % (32.4-45.2); HEMOGLOBIN 14.4 GM/dL (10.7-15.3); LYMPH % 7.4 % (8-40); MCHC 32.8 g/dl (32.0-36.0); MEAN CELL VOLUME 94.6 fl (80-96); MEAN PLT VOLUME 9.6 fl (7.5-11.1); MONO % 9.1 % (3.8-10.2); NEUT % 82.9 % (42.8-82.8); PLATELET COUNT 98 10^3/uL (134-434); RBC 4.64 M/mm3 (3.60-5.2); RDW 15.9 % (11.6-15.6); WHITE BLOOD COUNT 5.6 K/mm3 (4.0-10.0)
[2022-05-29 09:18] LABS: ALBUMIN 3.4 g/dl (3.4-5.0); BLOOD UREA NITROGEN 29.8 mg/dL (7-18); CALCIUM 9.2 mg/dL (8.5-10.1)
[2022-05-29 09:22] LABS: CREATININE 1.2 mg/dL (0.55-1.3)
[2022-05-29 09:23] LABS: BILIRUBIN,TOTAL 1.5 mg/dL (0.2-1)
[2022-05-29 09:24] LABS: TOT PROT 5.9 g/dl (6.4-8.2)
[2022-05-29] MEDS: POTASSIUM CHLORIDE TABS 20 MEQ TABLET.ER (FP) PO SCH (10:43)
[2022-05-29] MEDS: predniSONE 20 MG TABLET (UD) PO SCH ×2 (10:43→22:16)
[2022-05-29] MEDS: POTASSIUM CHLORIDE TABS 10 MEQ TABLET.ER (FP) PO SCH (10:43)
[2022-05-29] MEDS: FUROSEMIDE 40 MG TABLET (FP) PO SCH (10:47)
[2022-05-29] MEDS: RIFAXIMIN 550 MG TABLET PO SCH ×2 (10:47→22:16)
[2022-05-29] MEDS: LACTULOSE 20 GM/30 ML UDC (FOR ORAL USE ONLY) PO SCH (15:38)
[2022-05-29] MEDS: VANCOMYCIN/WATER 1250 MG 1,250 MG/250 ML BAG IVPB SCH (18:18)
[2022-05-30] MEDS: INSULIN SLIDING SCALE (NOVOLOG) 1 VIAL SQ SCH ×4 (06:41→22:25)
[2022-05-30 08:27] LABS: HEMATOCRIT 44.8 % (32.4-45.2); HEMOGLOBIN 14.6 GM/dL (10.7-15.3); MCHC 32.6 g/dl (32.0-36.0); MEAN CELL VOLUME 95.2 fl (80-96); MEAN PLT VOLUME 8.8 fl (7.5-11.1); PLATELET COUNT 97 10^3/uL (134-434); RBC 4.71 M/mm3 (3.60-5.2); WHITE BLOOD COUNT 6.1 K/mm3 (4.0-10.0)
[2022-05-30 08:32] LABS: ALBUMIN 3.4 g/dl (3.4-5.0); CALCIUM 9.3 mg/dL (8.5-10.1)
[2022-05-30 08:35] LABS: CREATININE 1.2 mg/dL (0.55-1.3)
[2022-05-30 08:45] LABS: BILIRUBIN,TOTAL 1.5 mg/dL (0.2-1)
[2022-05-30] MEDS: RIFAXIMIN 550 MG TABLET PO SCH (11:12)
[2022-05-30] MEDS: POTASSIUM CHLORIDE TABS 10 MEQ TABLET.ER (FP) PO SCH (11:12)
[2022-05-30] MEDS: LACTULOSE 20 GM/30 ML UDC (FOR ORAL USE ONLY) PO SCH (11:12)
[2022-05-30] MEDS: POTASSIUM CHLORIDE TABS 20 MEQ TABLET.ER (FP) PO SCH (11:13)
[2022-05-30] MEDS: FUROSEMIDE 40 MG TABLET (FP) PO SCH (11:13)
[2022-05-30] MEDS: predniSONE 20 MG TABLET (UD) PO SCH ×2 (11:13→22:06)
[2022-05-30] MEDS: risperiDONE 0.5 MG TABLET PO SCH (11:13)
[2022-05-30] MEDS: HEPARIN NA (PORCINE) 5,000 UNITS/ML 1ML VIAL SQ SCH ×2 (14:08→22:07)
[2022-05-30] MEDS: VANCOMYCIN/WATER 1250 MG 1,250 MG/250 ML BAG IVPB SCH (16:42)
[2022-05-30] MEDS: risperiDONE 1 MG TABLET PO SCH (22:06)
[2022-05-31 02:07] LABS: FIBROSIS SCORE. 0.64 (0.00-0.21); HCV ALPHA 2 MACRO CHART 210 mg/dL (110-276); NECRO.INFLAM ACT.SCORE 0.33 (0.00-0.17); NECROINFLAM. ACTIVITY GRADE A1-Minimal activity (.)
[2022-05-31] MEDS: ACETAMINOPHEN 325 MG TABLET (FP) PO PRN (05:57)
[2022-05-31] MEDS: HEPARIN NA (PORCINE) 5,000 UNITS/ML 1ML VIAL SQ SCH ×3 (05:58→21:43)
[2022-05-31] MEDS: INSULIN SLIDING SCALE (NOVOLOG) 1 VIAL SQ SCH ×4 (06:02→22:30)
[2022-05-31] MEDS: predniSONE 10 MG TABLET (UD) PO SCH ×2 (07:04→21:43)
[2022-05-31] MEDS: POTASSIUM CHLORIDE TABS 20 MEQ TABLET.ER (FP) PO SCH (09:56)
[2022-05-31] MEDS: POTASSIUM CHLORIDE TABS 10 MEQ TABLET.ER (FP) PO SCH (09:56)
[2022-05-31] MEDS: FUROSEMIDE 40 MG TABLET (FP) PO SCH (09:56)
[2022-05-31] MEDS ORDERED: ASPIRIN COATED 81 MG TABLET.EC PO SCH (10:30)
[2022-05-31] MEDS: LOSARTAN POTASSIUM 50 MG TABLET PO SCH (12:02)
[2022-05-31] MEDS: ASPIRIN/DIPYRIDAMOLE 25 MG/200 MG CAPSULE PO SCH ×2 (12:02→21:42)
[2022-05-31 18:32] LABS: CALCIUM 9.2 mg/dL (8.5-10.1)
[2022-05-31 18:33] LABS: ALBUMIN 3.3 g/dl (3.4-5.0); BLOOD UREA NITROGEN 28.8 mg/dL (7-18)
[2022-05-31 18:36] LABS: CREATININE 1.1 mg/dL (0.55-1.3)
[2022-05-31 18:37] LABS: BILIRUBIN,TOTAL 1.8 mg/dL (0.2-1); TOT PROT 6.2 g/dl (6.4-8.2)
[2022-05-31] MEDS: risperiDONE 1 MG TABLET PO SCH (21:43)
[2022-05-31] MEDS: ATORVASTATIN CA 20 MG TABLET (FP) PO SCH (21:43)
[2022-06-01] MEDS: HEPARIN NA (PORCINE) 5,000 UNITS/ML 1ML VIAL SQ SCH ×3 (06:42→22:34)
[2022-06-01] MEDS: INSULIN SLIDING SCALE (NOVOLOG) 1 VIAL SQ SCH ×4 (06:49→22:35)
[2022-06-01] MEDS: POTASSIUM CHLORIDE TABS 20 MEQ TABLET.ER (FP) PO SCH (09:34)
[2022-06-01] MEDS: predniSONE 10 MG TABLET (UD) PO SCH ×2 (09:34→22:34)
[2022-06-01] MEDS: ASPIRIN/DIPYRIDAMOLE 25 MG/200 MG CAPSULE PO SCH ×2 (09:34→22:35)
[2022-06-01] MEDS: FUROSEMIDE 40 MG TABLET (FP) PO SCH (09:34)
[2022-06-01] MEDS: LOSARTAN POTASSIUM 50 MG TABLET PO SCH (09:35)
[2022-06-01] MEDS: POTASSIUM CHLORIDE TABS 10 MEQ TABLET.ER (FP) PO SCH (09:35)
[2022-06-01] MEDS: risperiDONE 1 MG TABLET PO SCH (22:34)
[2022-06-01] MEDS: ATORVASTATIN CA 20 MG TABLET (FP) PO SCH (22:34)
[2022-06-02] MEDS: HEPARIN NA (PORCINE) 5,000 UNITS/ML 1ML VIAL SQ SCH ×3 (06:20→21:42)
[2022-06-02] MEDS: INSULIN SLIDING SCALE (NOVOLOG) 1 VIAL SQ SCH ×4 (06:21→21:43)
[2022-06-02] MEDS: FUROSEMIDE 40 MG TABLET (FP) PO SCH (09:21)
[2022-06-02] MEDS: predniSONE 10 MG TABLET (UD) PO SCH ×2 (09:21→21:41)
[2022-06-02] MEDS: ASPIRIN/DIPYRIDAMOLE 25 MG/200 MG CAPSULE PO SCH ×2 (09:21→21:40)
[2022-06-02] MEDS: POTASSIUM CHLORIDE TABS 20 MEQ TABLET.ER (FP) PO SCH (09:21)
[2022-06-02] MEDS: POTASSIUM CHLORIDE TABS 10 MEQ TABLET.ER (FP) PO SCH (09:21)
[2022-06-02] MEDS: LOSARTAN POTASSIUM 50 MG TABLET PO SCH (09:21)
[2022-06-02 20:39] VITALS: BMI 22.4
[2022-06-02] MEDS: risperiDONE 1 MG TABLET PO SCH (21:41)
[2022-06-02] MEDS: ATORVASTATIN CA 20 MG TABLET (FP) PO SCH (21:41)
[2022-06-03] MEDS: HEPARIN NA (PORCINE) 5,000 UNITS/ML 1ML VIAL SQ SCH (05:31)
[2022-06-03] MEDS: INSULIN SLIDING SCALE (NOVOLOG) 1 VIAL SQ SCH (06:37)
[2022-06-03 07:49] LABS: BASO % 0.3 % (0-2.0); EOS % 0.5 % (0-4.5); HEMATOCRIT 46.4 % (32.4-45.2); HEMOGLOBIN 15.6 GM/dL (10.7-15.3); LYMPH % 15.9 % (8-40); MCH 31.9 pg (25.7-33.7); MCHC 33.6 g/dl (32.0-36.0); MEAN CELL VOLUME 94.8 fl (80-96); MEAN PLT VOLUME 8.4 fl (7.5-11.1); MONO % 11.5 % (3.8-10.2); NEUT % 71.8 % (42.8-82.8); PLATELET COUNT 117 10^3/uL (134-434); RBC 4.89 M/mm3 (3.60-5.2); WHITE BLOOD COUNT 6.4 K/mm3 (4.0-10.0)
[2022-06-03 08:14] LABS: ALBUMIN 2.9 g/dl (3.4-5.0)
[2022-06-03 08:15] LABS: BLOOD UREA NITROGEN 34.8 mg/dL (7-18)
[2022-06-03 08:17] LABS: CREATININE 1.1 mg/dL (0.55-1.3)
[2022-06-03 08:19] LABS: BILIRUBIN,TOTAL 1.1 mg/dL (0.2-1); TOT PROT 5.3 g/dl (6.4-8.2)
[2022-06-03] MEDS: ASPIRIN/DIPYRIDAMOLE 25 MG/200 MG CAPSULE PO SCH (09:34)
[2022-06-03] MEDS: POTASSIUM CHLORIDE TABS 10 MEQ TABLET.ER (FP) PO SCH (09:34)
[2022-06-03] MEDS: POTASSIUM CHLORIDE TABS 20 MEQ TABLET.ER (FP) PO SCH (09:34)
[2022-06-03] MEDS: predniSONE 10 MG TABLET (UD) PO SCH (09:34)
[2022-06-03] MEDS: LOSARTAN POTASSIUM 50 MG TABLET PO SCH (09:34)
[2022-06-03] MEDS: FUROSEMIDE 40 MG TABLET (FP) PO SCH (09:34)
[2022-06-03] MEDS ORDERED: POLYETHYLENE GLYCOL (HEALTHYLAX) 3350 17 GM PACKET PO SCH (10:00)
[2022-06-03 15:50] VITALS: BP 124/78; PULSE 75; RESP 24; TEMP 97.4
== END 2022-06-03 11:00 | DRG 291 ==
LOC: JER 23:28 → JERBED 05-23 05:01 → J4W 05-23 20:54
PROVIDERS: ADMIT Internal Medicine; ATTEND Family Medicine
DX: I11.0 Hypertensive heart disease with heart failure (principal); G93.41 Metabolic encephalopathy; U07.1 COVID-19; J96.21 Acute and chronic respiratory failure with hypoxia; I50.33 Acute on chronic diastolic (congestive) heart failure; J44.1 Chronic obstructive pulmonary disease with (acute) exacerbation; R18.8 Other ascites; R78.81 Bacteremia; N39.0 Urinary tract infection, site not specified; I45.10 Unspecified right bundle-branch block; K59.00 Constipation, unspecified; N61.0 Mastitis without abscess; G20 Parkinson's disease; D69.6 Thrombocytopenia, unspecified; K83.8 Other specified diseases of biliary tract; K74.60 Unspecified cirrhosis of liver; D72.819 Decreased white blood cell count, unspecified; R91.8 Other nonspecific abnormal finding of lung field; G47.00 Insomnia, unspecified; R91.1 Solitary pulmonary nodule; R23.4 Changes in skin texture; Z99.81 Dependence on supplemental oxygen
CPT/HCPCS: 0241U-QW; 36415; 70551-TC; 71045-TC-FY; 71275-TC; 74177-TC; 74181-TC; 76642-TC-RT; 76705-TC; 80048; 80053; 81003; 82105; 82140; 82172; 82272; 82728; 82803; 82962; 82977; 83010; 83516; 83540; 83550; 83605; 83735; 83880; 83883; 84100; 84460; 84484; 85025; 85027; 85610; 85730; 86038; 86705; 86707; 86708; 86803; 86850; 86900; 86901; 87040; 87086; 87340; 87350; 87517; 93005; 93010; 93306-TC; 94640; 94660; 97116-GP; 97162-GP; 99285-25; C9803-CS; G0480; J1644; U0003; U0005

== ENCOUNTER 2022-06-24 14:31 | Emergency (ER) | payer OTHER, MEDICARE ==
[2022-06-24 14:46] VITALS: BP 135/80; PULSE 82; RESP 18; TEMP 97.9; BMI 24.2
== END 2022-06-24 20:42 | disposition home or self-care (01) ==
LOC: JERFT 14:31 → JER 14:31 → JERFT 20:42
DX: Z46.6 Encounter for fitting and adjustment of urinary device (principal)
CPT/HCPCS: 99282-25

== ENCOUNTER 2022-07-09 18:49 | Observation (INO) | payer OTHER, MEDICARE ==
[2022-07-09 19:15] VITALS: BMI 20.1
[2022-07-09] MEDS ORDERED: ALBUTEROL SO4 2.5/IPRATROPIUM 0.5 INH SOL 3 ML VIAL.NEB. NEB ONE ×2 (20:23→20:28)
[2022-07-09 21:18] LABS: HEMATOCRIT 41.5 % (32.4-45.2); HEMOGLOBIN 13.5 GM/dL (10.7-15.3); MCH 30.8 pg (25.7-33.7); MCHC 32.6 g/dl (32.0-36.0); MEAN CELL VOLUME 94.4 fl (80-96); MEAN PLT VOLUME 8.1 fl (7.5-11.1); PLATELET COUNT 145 10^3/uL (134-434); RBC 4.39 M/mm3 (3.60-5.2); RDW 17.6 % (11.6-15.6); WHITE BLOOD COUNT 4.5 K/mm3 (4.0-10.0)
[2022-07-09 21:34] LABS: INR 1.37 (0.83-1.09); PROTHROMBIN TIME (PATIENT) 15.8 SEC (9.7-13.0)
[2022-07-09 21:37] LABS: ACTIVATED PTT 34.4 SECONDS (25.2-36.5)
[2022-07-09 21:42] LABS: CHLORIDE 107 mmol/L (98-107); SODIUM 143 mmol/L (136-145)
[2022-07-09 21:45] LABS: ALBUMIN 3.4 g/dl (3.4-5.0); ANION GAP 6 MMOL/L (8-16); BLOOD UREA NITROGEN 22.7 mg/dL (7-18); CALCIUM 8.7 mg/dL (8.5-10.1); CO2 30 mmol/L (21-32); GLUCOSE,RANDOM 85 mg/dL (74-106); MAGNESIUM 1.8 mg/dL (1.8-2.4)
[2022-07-09 21:48] LABS: CREATININE 1.1 mg/dL (0.55-1.3); PHOSPHOROUS 3.1 mg/dL (2.5-4.9); SGOT/AST 11 U/L (15-37); SGPT/ALT 14 U/L (13-61)
[2022-07-09 21:49] LABS: TOT PROT 6.6 g/dl (6.4-8.2)
[2022-07-09 21:50] LABS: BILIRUBIN,TOTAL 0.6 mg/dL (0.2-1)
[2022-07-09 21:51] LABS: ALK PHOS 75 U/L (45-117)
[2022-07-09 21:53] LABS: N-TERMINAL BNP 7747.2 pg/ml (5-450)
[2022-07-09] MEDS ORDERED: ASPIRIN/DIPYRIDAMOLE 25 MG/200 MG CAPSULE PO ONE (23:03)
[2022-07-09 23:23] LABS: EPI CELLS 5 /uL (0-25.1); HYALINE CASTS 5 /uL (0-3.1); PH,URINE 5.5 (5.0-8.0); URINE APPEARANCE CLOUDY; URINE BACTERIA >9,000 /uL (0-1359); URINE BILIRUBIN NEGATIVE (NEGATIVE); URINE COLOR DK YELLOW; URINE GLUCOSE (UA) NEGATIVE (NEGATIVE); URINE KETONE TRACE (NEGATIVE); URINE LEUK ESTERASE 2+ (NEGATIVE); URINE NITRITE NEGATIVE (NEGATIVE); URINE PROTEIN 1+ (NEGATIVE); URINE WBC 603 /uL (0-25.8)
[2022-07-09] MEDS ORDERED: ASPIRIN/DIPYRIDAMOLE 25 MG/200 MG CAPSULE ONE (23:27)
[2022-07-09] MEDS ORDERED: CEFTRIAXONE 1 GM in DEXTROSE 5%-WATER - 50 ML IVPB ONE (23:46)
[2022-07-10] MEDS ORDERED: CEFTRIAXONE 1 GM/50 ML BAG ONE (00:16)
[2022-07-10 06:41] LABS: EOS % 2.9 % (0-4.5); HEMATOCRIT 41.3 % (32.4-45.2); HEMOGLOBIN 13.5 GM/dL (10.7-15.3); LYMPH % 26.2 % (8-40); MCH 31.3 pg (25.7-33.7); MCHC 32.7 g/dl (32.0-36.0); MEAN CELL VOLUME 95.9 fl (80-96); MEAN PLT VOLUME 8.3 fl (7.5-11.1); MONO % 13.4 % (3.8-10.2); NEUT % 56.5 % (42.8-82.8); PLATELET COUNT 141 10^3/uL (134-434); RBC 4.31 M/mm3 (3.60-5.2); RDW 17.9 % (11.6-15.6); WHITE BLOOD COUNT 4.2 K/mm3 (4.0-10.0)
[2022-07-10 07:05] LABS: ALBUMIN 3.4 g/dl (3.4-5.0); BLOOD UREA NITROGEN 18.6 mg/dL (7-18); CALCIUM 8.9 mg/dL (8.5-10.1)
[2022-07-10 07:08] LABS: CREATININE 0.9 mg/dL (0.55-1.3)
[2022-07-10 07:10] LABS: BILIRUBIN,TOTAL 0.8 mg/dL (0.2-1); TOT PROT 6.4 g/dl (6.4-8.2)
[2022-07-10] MEDS ORDERED: ALBUTEROL SO4 0.083% IH SOL 2.5 MG/3 ML VIAL.NEB. NEB PRN (11:31)
[2022-07-10 15:40] VITALS: RESP 18
[2022-07-10] MEDS: FLUTICASONE/UMECLIDIN/VILANTER(100-62.5-25 TRELEGY ELLIPTA) INAHLER IH SCH (15:41)
[2022-07-10] MEDS: CEFTRIAXONE 1 GM in DEXTROSE 5%-WATER - 50 ML IVPB SCH (18:24)
[2022-07-11] MEDS: CEFTRIAXONE 1 GM in DEXTROSE 5%-WATER - 50 ML IVPB SCH (11:16)
[2022-07-11] MEDS: FLUTICASONE/UMECLIDIN/VILANTER(100-62.5-25 TRELEGY ELLIPTA) INAHLER IH SCH (13:53)
[2022-07-11] MEDS ORDERED: amLODIPine BESYLATE 5 MG TABLET (FP) PO SCH ×2 (14:30)
[2022-07-11] MEDS: amLODIPine BESYLATE 5 MG TABLET (FP) PO SCH (15:06)
[2022-07-11] MEDS ORDERED: LORazepam 2 MG/ML SDV VIAL IVPUSH PRN (18:15)
[2022-07-11] MEDS: HEPARIN NA (PORCINE) 5,000 UNITS/ML 1ML VIAL SQ SCH (22:12)
[2022-07-12] MEDS: HEPARIN NA (PORCINE) 5,000 UNITS/ML 1ML VIAL SQ SCH (10:49)
[2022-07-12] MEDS: CEFTRIAXONE 1 GM in DEXTROSE 5%-WATER - 50 ML IVPB SCH (10:49)
[2022-07-12] MEDS: FLUTICASONE/UMECLIDIN/VILANTER(100-62.5-25 TRELEGY ELLIPTA) INAHLER IH SCH (10:49)
[2022-07-12] MEDS: amLODIPine BESYLATE 5 MG TABLET (FP) PO SCH (12:25)
[2022-07-12 14:35] VITALS: BP 115/76; PULSE 73; TEMP 98.9
== END 2022-07-12 17:15 | disposition home or self-care (01) ==
LOC: JER 18:49 → JERBED 23:17 → J7W 07-10 15:01
PROVIDERS: ADMIT Internal Medicine; ATTEND Family Medicine
PROC: 3E03329 Introduction of Other Anti-infective into Peripheral Vein, Percutaneous Approach (ICD-10-PCS; principal; 2022-07-09)
PROC: 3E033GC Introduction of Other Therapeutic Substance into Peripheral Vein, Percutaneous Approach (ICD-10-PCS; 2022-07-09)
PROC: 3E013GC Introduction of Other Therapeutic Substance into Subcutaneous Tissue, Percutaneous Approach (ICD-10-PCS; 2022-07-09)
PROC: 3E0F7SF Introduction of Other Gas into Respiratory Tract, Via Natural or Artificial Opening (ICD-10-PCS; 2022-07-09)
DX: I50.43 Acute on chronic combined systolic (congestive) and diastolic (congestive) heart failure (principal); J96.21 Acute and chronic respiratory failure with hypoxia; J44.1 Chronic obstructive pulmonary disease with (acute) exacerbation; R74.9 Abnormal serum enzyme level, unspecified; G93.41 Metabolic encephalopathy; N39.0 Urinary tract infection, site not specified; I11.0 Hypertensive heart disease with heart failure; G20 Parkinson's disease; F02.80 Dementia in other diseases classified elsewhere, unspecified severity, without behavioral disturbance, psychotic disturbance, mood disturbance, and anxiety; G24.01 Drug induced subacute dyskinesia; Z87.891 Personal history of nicotine dependence; Z79.4 Long term (current) use of insulin; Z91.198 Patient's noncompliance with other medical treatment and regimen for other reason; Z96.653 Presence of artificial knee joint, bilateral
CPT/HCPCS: 0241U-QW; 36415; 71045-TC-FY; 80053; 81003; 82550; 83735; 83880; 84100; 84484; 85025; 85027; 85610; 85730; 86850; 86900; 86901; 87040; 87086; 87186; 93005; 93010; 94640; 96365; 96372; 96375; 97116-GP; 97161-GP; 99285-25; C9803-CS; G0378; J1644; U0003; U0005

== ENCOUNTER 2022-10-17 19:31 | Inpatient (IN) | payer OTHER, MEDICARE ==
[2022-10-17] MEDS ORDERED: FAMOTIDINE 20 MG/50 ML IVPB 20 MG/50 ML MG IVPB ONE ×2 (20:04→20:23)
[2022-10-17] MEDS ORDERED: MAG HYDROX/AL HYDROX/SIMETH 30 ML UNIT-DOSE CUP PO ONE (20:04)
[2022-10-17] MEDS ORDERED: MAG HYDROX/AL HYDROX/SIMETH 30 ML UNIT-DOSE CUP ONE (20:22)
[2022-10-17 20:33] LABS: BASO % 1.2 % (0-2.0); EOS % 3.4 % (0-4.5); HEMATOCRIT 39.5 % (32.4-45.2); HEMOGLOBIN 12.8 GM/dL (10.7-15.3); LYMPH % 23.3 % (8-40); MCH 31.4 pg (25.7-33.7); MCHC 32.6 g/dl (32.0-36.0); MEAN CELL VOLUME 96.3 fl (80-96); MEAN PLT VOLUME 8.5 fl (7.5-11.1); MONO % 18.9 % (3.8-10.2); NEUT % 53.2 % (42.8-82.8); PLATELET COUNT 132 10^3/uL (134-434); WHITE BLOOD COUNT 3.9 K/mm3 (4.0-10.0)
[2022-10-17 20:45] LABS: POTASSIUM 4.2 mmol/L (3.5-5.1)
[2022-10-17 20:47] LABS: ALBUMIN 3.8 g/dl (3.4-5.0); BLOOD UREA NITROGEN 25.2 mg/dL (7-18); CALCIUM 9.8 mg/dL (8.5-10.1)
[2022-10-17 20:50] LABS: CREATININE 1.5 mg/dL (0.55-1.3)
[2022-10-17 20:52] LABS: BILIRUBIN,TOTAL 1.3 mg/dL (0.2-1); TOT PROT 6.6 g/dl (6.4-8.2)
[2022-10-17] MEDS ORDERED: ONDANSETRON 4 MG/2 ML VIAL IVPUSH ONE (21:53)
[2022-10-17] MEDS ORDERED: ONDANSETRON 4 MG/2 ML VIAL ONE (22:13)
[2022-10-17] MEDS ORDERED: SODIUM CHLORIDE 0.9% 500 ML INFUS.BAG IV ONE (22:23)
[2022-10-17] MEDS ORDERED: ALBUTEROL SO4 2.5/IPRATROPIUM 0.5 INH SOL 3 ML VIAL.NEB. NEB ONE ×2 (23:34→23:58)
[2022-10-18] MEDS ORDERED: DOCUSATE SODIUM 100 MG CAPSULE (FP) PO PRN (01:49)
[2022-10-18] MEDS ORDERED: ALBUTEROL SO4 HFA INHALER IH PRN (02:01)
[2022-10-18 03:26] LABS: LACTIC ACID 3.8 mmol/L (0.4-2.0)
[2022-10-18 07:35] LABS: BASO % 0.4 % (0-2.0); EOS % 0.1 % (0-4.5); HEMATOCRIT 40.1 % (32.4-45.2); HEMOGLOBIN 13.2 GM/dL (10.7-15.3); MCH 31.8 pg (25.7-33.7); MEAN CELL VOLUME 96.2 fl (80-96); MEAN PLT VOLUME 8.4 fl (7.5-11.1); MONO % 12.6 % (3.8-10.2); NEUT % 72.9 % (42.8-82.8); PLATELET COUNT 134 10^3/uL (134-434); RBC 4.17 M/mm3 (3.60-5.2); RDW 15.5 % (11.6-15.6); WHITE BLOOD COUNT 4.2 K/mm3 (4.0-10.0)
[2022-10-18 07:56] LABS: POTASSIUM 4.8 mmol/L (3.5-5.1)
[2022-10-18 08:01] LABS: ALBUMIN 3.9 g/dl (3.4-5.0); BLOOD UREA NITROGEN 30.1 mg/dL (7-18); CALCIUM 9.8 mg/dL (8.5-10.1)
[2022-10-18 08:05] LABS: CREATININE 1.7 mg/dL (0.55-1.3)
[2022-10-18 08:06] LABS: BILIRUBIN,TOTAL 2.3 mg/dL (0.2-1)
[2022-10-18 08:07] LABS: TOT PROT 6.6 g/dl (6.4-8.2)
[2022-10-18] MEDS ORDERED: PATIENT'S OWN MEDICATION (NON-FORMULARY) (Mirabegron [Myrbetriq] 50 MG Tab.Er.24h) PO SCH (10:00)
[2022-10-18] MEDS ORDERED: FUROSEMIDE 20 MG TABLET (FP) PO SCH (10:00)
[2022-10-18] MEDS: QUEtiapine FUMARATE 25 MG TABLET PO SCH ×3 (10:14→22:42)
[2022-10-18] MEDS: amLODIPine BESYLATE 5 MG TABLET (FP) PO SCH (10:14)
[2022-10-18] MEDS: DULoxetine HCL 30 MG CAPSULE.DR PO SCH (10:14)
[2022-10-18] MEDS: FLUTICASONE/UMECLIDIN/VILANTER(100-62.5-25 TRELEGY ELLIPTA) INAHLER IH SCH (10:15)
[2022-10-18] MEDS: ASPIRIN 81 MG CHEWABLE TABLETS PO SCH (10:15)
[2022-10-18 10:35] LABS: LACTIC ACID 4.7 mmol/L (0.4-2.0)
[2022-10-18] MEDS ORDERED: TRIMETHOBENZAMIDE HCL 200MG/2ML INJ IM PRN (13:36)
[2022-10-18] MEDS: POLYETHYLENE GLYCOL (HEALTHYLAX) 3350 17 GM PACKET PO SCH ×2 (16:55→22:38)
[2022-10-18] MEDS: PANTOPRAZOLE 40 MG TABLET PO SCH ×2 (16:55→22:43)
[2022-10-18] MEDS: LIPASE/PROTEASE/AMYLASE 36,000 UNIT CAPSULE PO SCH (17:36)
[2022-10-18] MEDS: SUCRALFATE 1 GM/10 ML UNIT DOSE CUPS PO SCH ×2 (17:36→22:45)
[2022-10-18] MEDS: HEPARIN NA (PORCINE) 5,000 UNITS/ML 1ML VIAL SQ SCH (22:43)
[2022-10-18] MEDS: risperiDONE 1 MG TABLET PO SCH (22:43)
[2022-10-18] MEDS: RIFAXIMIN 550 MG TABLET PO SCH (22:45)
[2022-10-19] MEDS: SUCRALFATE 1 GM/10 ML UNIT DOSE CUPS PO SCH ×4 (06:35→23:30)
[2022-10-19] MEDS: POLYETHYLENE GLYCOL (HEALTHYLAX) 3350 17 GM PACKET PO SCH ×3 (06:35→23:30)
[2022-10-19] MEDS: RIFAXIMIN 550 MG TABLET PO SCH ×3 (06:35→23:31)
[2022-10-19] MEDS: LIPASE/PROTEASE/AMYLASE 36,000 UNIT CAPSULE PO SCH ×3 (08:34→17:17)
[2022-10-19 09:28] LABS: CALCIUM 9.4 mg/dL (8.5-10.1)
[2022-10-19 09:29] LABS: ALBUMIN 3.6 g/dl (3.4-5.0); BLOOD UREA NITROGEN 42.2 mg/dL (7-18)
[2022-10-19 09:32] LABS: CREATININE 2.3 mg/dL (0.55-1.3)
[2022-10-19 09:34] LABS: BILIRUBIN,TOTAL 1.4 mg/dL (0.2-1); TOT PROT 6.2 g/dl (6.4-8.2)
[2022-10-19] MEDS: HEPARIN NA (PORCINE) 5,000 UNITS/ML 1ML VIAL SQ SCH ×2 (09:46→23:30)
[2022-10-19] MEDS: QUEtiapine FUMARATE 25 MG TABLET PO SCH ×2 (09:47→23:31)
[2022-10-19] MEDS: DULoxetine HCL 30 MG CAPSULE.DR PO SCH (09:47)
[2022-10-19] MEDS: ASPIRIN 81 MG CHEWABLE TABLETS PO SCH (09:47)
[2022-10-19] MEDS: FUROSEMIDE 20 MG TABLET (FP) PO SCH (09:47)
[2022-10-19] MEDS: amLODIPine BESYLATE 5 MG TABLET (FP) PO SCH (09:47)
[2022-10-19] MEDS: PANTOPRAZOLE 40 MG TABLET PO SCH ×2 (09:47→23:31)
[2022-10-19] MEDS: FLUTICASONE/UMECLIDIN/VILANTER(100-62.5-25 TRELEGY ELLIPTA) INAHLER IH SCH (12:17)
[2022-10-19] MEDS: SODIUM CHLORIDE 0.45% 1,000 ML IV SCH (14:56)
[2022-10-19 16:55] LABS: EPI CELLS 15 /uL (0-25.1); HYALINE CASTS 19 /uL (0-3.1); URINE APPEARANCE CLEAR; URINE BACTERIA 8 /uL (0-1359); URINE BILIRUBIN 1+ (NEGATIVE); URINE COLOR DK YELLOW; URINE GLUCOSE (UA) NEGATIVE (NEGATIVE); URINE KETONE TRACE (NEGATIVE); URINE LEUK ESTERASE 1+ (NEGATIVE); URINE NITRITE NEGATIVE (NEGATIVE); URINE PROTEIN 1+ (NEGATIVE); URINE RBC 23 /uL (0-23.9); URINE WBC 64 /uL (0-25.8)
[2022-10-19] MEDS: risperiDONE 1 MG TABLET PO SCH (23:31)
[2022-10-20] MEDS: POLYETHYLENE GLYCOL (HEALTHYLAX) 3350 17 GM PACKET PO SCH ×3 (06:32→22:54)
[2022-10-20] MEDS: RIFAXIMIN 550 MG TABLET PO SCH ×3 (06:35→22:53)
[2022-10-20] MEDS: SUCRALFATE 1 GM/10 ML UNIT DOSE CUPS PO SCH ×4 (06:35→22:55)
[2022-10-20] MEDS: LIPASE/PROTEASE/AMYLASE 36,000 UNIT CAPSULE PO SCH ×3 (08:19→17:07)
[2022-10-20 08:47] LABS: POTASSIUM 4.2 mmol/L (3.5-5.1)
[2022-10-20 08:55] LABS: CALCIUM 9.1 mg/dL (8.5-10.1)
[2022-10-20 08:56] LABS: ALBUMIN 3.6 g/dl (3.4-5.0); BILIRUBIN,TOTAL 1.2 mg/dL (0.2-1); BLOOD UREA NITROGEN 36.1 mg/dL (7-18)
[2022-10-20 08:58] LABS: CREATININE 1.7 mg/dL (0.55-1.3)
[2022-10-20] MEDS: DULoxetine HCL 30 MG CAPSULE.DR PO SCH (09:11)
[2022-10-20] MEDS: ASPIRIN 81 MG CHEWABLE TABLETS PO SCH (09:12)
[2022-10-20] MEDS: QUEtiapine FUMARATE 25 MG TABLET PO SCH ×2 (09:12→22:53)
[2022-10-20] MEDS: FUROSEMIDE 20 MG TABLET (FP) PO SCH (09:12)
[2022-10-20] MEDS: amLODIPine BESYLATE 5 MG TABLET (FP) PO SCH (09:12)
[2022-10-20] MEDS: PANTOPRAZOLE 40 MG TABLET PO SCH ×2 (09:12→22:53)
[2022-10-20] MEDS: HEPARIN NA (PORCINE) 5,000 UNITS/ML 1ML VIAL SQ SCH ×2 (09:12→22:51)
[2022-10-20] MEDS: FLUTICASONE/UMECLIDIN/VILANTER(100-62.5-25 TRELEGY ELLIPTA) INAHLER IH SCH (09:13)
[2022-10-20] MEDS: SODIUM CHLORIDE 0.45% 1,000 ML IV SCH (16:59)
[2022-10-20] MEDS: ACETAMINOPHEN 500 MG TABLET (FP) PO PRN (22:51)
[2022-10-20] MEDS: risperiDONE 1 MG TABLET PO SCH (22:53)
[2022-10-21 00:52] LABS: EPI CELLS 28 /uL (0-25.1); HYALINE CASTS 2 /uL (0-3.1); URINE APPEARANCE TURBID; URINE BACTERIA 1282 /uL (0-1359); URINE BILIRUBIN NEGATIVE (NEGATIVE); URINE COLOR DK YELLOW; URINE GLUCOSE (UA) NEGATIVE (NEGATIVE); URINE KETONE NEGATIVE (NEGATIVE); URINE LEUK ESTERASE 1+ (NEGATIVE); URINE NITRITE NEGATIVE (NEGATIVE); URINE PROTEIN TRACE (NEGATIVE); URINE WBC 129 /uL (0-25.8)
[2022-10-21] MEDS ORDERED: MELATONIN 5 MG TABLETS PO ONE (01:57)
[2022-10-21] MEDS: POLYETHYLENE GLYCOL (HEALTHYLAX) 3350 17 GM PACKET PO SCH ×3 (06:36→21:33)
[2022-10-21] MEDS: SUCRALFATE 1 GM/10 ML UNIT DOSE CUPS PO SCH ×4 (06:40→21:38)
[2022-10-21] MEDS: RIFAXIMIN 550 MG TABLET PO SCH ×3 (06:40→21:38)
[2022-10-21 07:49] LABS: BASO % 0.7 % (0-2.0); EOS % 4.3 % (0-4.5); HEMATOCRIT 39.8 % (32.4-45.2); HEMOGLOBIN 12.8 GM/dL (10.7-15.3); LYMPH % 30.1 % (8-40); MCH 31.2 pg (25.7-33.7); MCHC 32.1 g/dl (32.0-36.0); MEAN CELL VOLUME 97.3 fl (80-96); MEAN PLT VOLUME 8.7 fl (7.5-11.1); MONO % 18.4 % (3.8-10.2); NEUT % 46.5 % (42.8-82.8); PLATELET COUNT 132 10^3/uL (134-434); RDW 15.3 % (11.6-15.6); WHITE BLOOD COUNT 3.4 K/mm3 (4.0-10.0)
[2022-10-21 08:07] LABS: POTASSIUM 4.1 mmol/L (3.5-5.1)
[2022-10-21 08:13] LABS: ALBUMIN 3.5 g/dl (3.4-5.0); BLOOD UREA NITROGEN 22.1 mg/dL (7-18); CALCIUM 9.1 mg/dL (8.5-10.1)
[2022-10-21 08:15] LABS: CREATININE 1.2 mg/dL (0.55-1.3)
[2022-10-21 08:17] LABS: TOT PROT 6.2 g/dl (6.4-8.2)
[2022-10-21 08:19] LABS: BILIRUBIN,TOTAL 1.5 mg/dL (0.2-1)
[2022-10-21] MEDS: amLODIPine BESYLATE 5 MG TABLET (FP) PO SCH (10:43)
[2022-10-21] MEDS: DULoxetine HCL 30 MG CAPSULE.DR PO SCH (10:43)
[2022-10-21] MEDS: PANTOPRAZOLE 40 MG TABLET PO SCH ×2 (10:44→21:38)
[2022-10-21] MEDS: LIPASE/PROTEASE/AMYLASE 36,000 UNIT CAPSULE PO SCH ×3 (10:44→17:59)
[2022-10-21] MEDS: HEPARIN NA (PORCINE) 5,000 UNITS/ML 1ML VIAL SQ SCH ×2 (10:44→21:38)
[2022-10-21] MEDS: FUROSEMIDE 20 MG TABLET (FP) PO SCH (10:44)
[2022-10-21] MEDS: QUEtiapine FUMARATE 25 MG TABLET PO SCH ×2 (10:44→21:39)
[2022-10-21] MEDS: ASPIRIN 81 MG CHEWABLE TABLETS PO SCH (10:44)
[2022-10-21] MEDS: FLUTICASONE/UMECLIDIN/VILANTER(100-62.5-25 TRELEGY ELLIPTA) INAHLER IH SCH (10:45)
[2022-10-21 11:16] LABS: POTASSIUM 5.2 mmol/L (3.5-5.1)
[2022-10-21 11:18] LABS: ALBUMIN 3.6 g/dl (3.4-5.0); CALCIUM 9.3 mg/dL (8.5-10.1)
[2022-10-21 11:19] LABS: BLOOD UREA NITROGEN 20.2 mg/dL (7-18)
[2022-10-21 11:21] LABS: CREATININE 1.3 mg/dL (0.55-1.3)
[2022-10-21 11:23] LABS: BILIRUBIN,TOTAL 1.5 mg/dL (0.2-1); TOT PROT 6.6 g/dl (6.4-8.2)
[2022-10-21] MEDS: risperiDONE 1 MG TABLET PO SCH ×2 (21:39→21:58)
[2022-10-22] MEDS: RIFAXIMIN 550 MG TABLET PO SCH ×3 (06:23→22:57)
[2022-10-22] MEDS: POLYETHYLENE GLYCOL (HEALTHYLAX) 3350 17 GM PACKET PO SCH ×3 (06:23→22:56)
[2022-10-22] MEDS: SUCRALFATE 1 GM/10 ML UNIT DOSE CUPS PO SCH ×4 (06:23→22:57)
[2022-10-22] MEDS: LIPASE/PROTEASE/AMYLASE 36,000 UNIT CAPSULE PO SCH ×3 (07:53→17:46)
[2022-10-22 08:13] LABS: BASO % 0.9 % (0-2.0); EOS % 2.3 % (0-4.5); HEMATOCRIT 40.8 % (32.4-45.2); LYMPH % 22.4 % (8-40); MCH 30.8 pg (25.7-33.7); MEAN CELL VOLUME 96.5 fl (80-96); MEAN PLT VOLUME 8.7 fl (7.5-11.1); MONO % 17.4 % (3.8-10.2); PLATELET COUNT 150 10^3/uL (134-434); RBC 4.22 M/mm3 (3.60-5.2); RDW 15.2 % (11.6-15.6)
[2022-10-22 08:42] LABS: ALBUMIN 3.7 g/dl (3.4-5.0); CALCIUM 9.2 mg/dL (8.5-10.1)
[2022-10-22 08:48] LABS: BILIRUBIN,TOTAL 1.5 mg/dL (0.2-1); TOT PROT 6.4 g/dl (6.4-8.2)
[2022-10-22] MEDS: FUROSEMIDE 20 MG TABLET (FP) PO SCH (13:10)
[2022-10-22] MEDS: DULoxetine HCL 30 MG CAPSULE.DR PO SCH (13:11)
[2022-10-22] MEDS: ASPIRIN 81 MG CHEWABLE TABLETS PO SCH (13:11)
[2022-10-22] MEDS: QUEtiapine FUMARATE 25 MG TABLET PO SCH ×2 (13:11→22:57)
[2022-10-22] MEDS: amLODIPine BESYLATE 5 MG TABLET (FP) PO SCH (13:12)
[2022-10-22] MEDS: HEPARIN NA (PORCINE) 5,000 UNITS/ML 1ML VIAL SQ SCH ×2 (13:12→22:57)
[2022-10-22] MEDS: PANTOPRAZOLE 40 MG TABLET PO SCH ×2 (13:12→22:57)
[2022-10-22] MEDS: FLUTICASONE/UMECLIDIN/VILANTER(100-62.5-25 TRELEGY ELLIPTA) INAHLER IH SCH (13:13)
[2022-10-22] MEDS: ACETAMINOPHEN 500 MG TABLET (FP) PO PRN (13:21)
[2022-10-22] MEDS ORDERED: ALBUTEROL SO4 0.083% IH SOL 2.5 MG/3 ML VIAL.NEB. NEB PRN (15:33)
[2022-10-22] MEDS: methylPREDNISolone NA SUCC 40 MG/1 ML VIAL IVPUSH SCH ×2 (15:50→22:57)
[2022-10-22] MEDS: LEVALBUTEROL HCL 0.31 MG/3 ML VIAL.NEB IH SCH (20:10)
[2022-10-22] MEDS: risperiDONE 1 MG TABLET PO SCH (22:57)
[2022-10-23] MEDS: RIFAXIMIN 550 MG TABLET PO SCH ×3 (06:41→21:55)
[2022-10-23] MEDS: POLYETHYLENE GLYCOL (HEALTHYLAX) 3350 17 GM PACKET PO SCH ×3 (06:41→21:56)
[2022-10-23] MEDS: SUCRALFATE 1 GM/10 ML UNIT DOSE CUPS PO SCH ×4 (06:41→21:55)
[2022-10-23 07:22] LABS: BASO % 0.1 % (0-2.0); HEMOGLOBIN 12.6 GM/dL (10.7-15.3); LYMPH % 25.4 % (8-40); MCH 31.4 pg (25.7-33.7); MCHC 32.2 g/dl (32.0-36.0); MEAN CELL VOLUME 97.4 fl (80-96); MEAN PLT VOLUME 8.6 fl (7.5-11.1); MONO % 5.2 % (3.8-10.2); NEUT % 69.3 % (42.8-82.8); PLATELET COUNT 140 10^3/uL (134-434); RBC 4.01 M/mm3 (3.60-5.2); RDW 15.2 % (11.6-15.6)
[2022-10-23 07:46] LABS: POTASSIUM 4.1 mmol/L (3.5-5.1)
[2022-10-23 07:54] LABS: ALBUMIN 3.3 g/dl (3.4-5.0); CALCIUM 9.1 mg/dL (8.5-10.1)
[2022-10-23 07:55] LABS: BLOOD UREA NITROGEN 15.2 mg/dL (7-18)
[2022-10-23 07:58] LABS: BILIRUBIN,TOTAL 1.4 mg/dL (0.2-1); TOT PROT 6.2 g/dl (6.4-8.2)
[2022-10-23 08:07] LABS: CARCINOEMBRYONIC ANTIGEN 2.1 ng/mL (0.0-4.7)
[2022-10-23] MEDS: LIPASE/PROTEASE/AMYLASE 36,000 UNIT CAPSULE PO SCH ×3 (08:15→17:09)
[2022-10-23] MEDS: methylPREDNISolone NA SUCC 40 MG/1 ML VIAL IVPUSH SCH ×3 (08:21→23:45)
[2022-10-23] MEDS: metoPROLOL SUCCINATE 25 MG TAB.SR.24H (FP) PO SCH ×2 (08:21→10:35)
[2022-10-23] MEDS: LEVALBUTEROL HCL 0.31 MG/3 ML VIAL.NEB IH SCH ×3 (08:34→19:39)
[2022-10-23] MEDS: FUROSEMIDE 20 MG TABLET (FP) PO SCH (10:34)
[2022-10-23] MEDS: DULoxetine HCL 30 MG CAPSULE.DR PO SCH (10:34)
[2022-10-23] MEDS: PANTOPRAZOLE 40 MG TABLET PO SCH ×2 (10:34→21:55)
[2022-10-23] MEDS: amLODIPine BESYLATE 5 MG TABLET (FP) PO SCH (10:34)
[2022-10-23] MEDS: ASPIRIN 81 MG CHEWABLE TABLETS PO SCH (10:34)
[2022-10-23] MEDS: QUEtiapine FUMARATE 25 MG TABLET PO SCH ×2 (10:35→21:55)
[2022-10-23] MEDS: FLUTICASONE/UMECLIDIN/VILANTER(100-62.5-25 TRELEGY ELLIPTA) INAHLER IH SCH (10:51)
[2022-10-23] MEDS: HEPARIN NA (PORCINE) 5,000 UNITS/ML 1ML VIAL SQ SCH ×2 (10:51→21:55)
[2022-10-23 16:08] LABS: ATYPICAL pANCA <1:20 titer (Neg:<1:20); C-ANCA <1:20 titer (Neg:<1:20)
[2022-10-23] MEDS: risperiDONE 1 MG TABLET PO SCH (21:55)
[2022-10-24 00:06] LABS: FIBROSIS SCORE. 0.69 (0.00-0.21); HCV ALPHA 2 MACRO CHART 217 mg/dL (110-276); NECRO.INFLAM ACT.SCORE 0.91 (0.00-0.17); NECROINFLAM. ACTIVITY GRADE A3-Severe activity (.)
[2022-10-24] MEDS: RIFAXIMIN 550 MG TABLET PO SCH ×3 (06:33→21:44)
[2022-10-24] MEDS: POLYETHYLENE GLYCOL (HEALTHYLAX) 3350 17 GM PACKET PO SCH (06:33)
[2022-10-24] MEDS: SUCRALFATE 1 GM/10 ML UNIT DOSE CUPS PO SCH ×4 (06:34→21:45)
[2022-10-24] MEDS: LEVALBUTEROL HCL 0.31 MG/3 ML VIAL.NEB IH SCH ×3 (07:35→20:05)
[2022-10-24 08:03] LABS: BASO % 0.1 % (0-2.0); HEMATOCRIT 42.8 % (32.4-45.2); HEMOGLOBIN 13.9 GM/dL (10.7-15.3); LYMPH % 13.7 % (8-40); MCH 31.4 pg (25.7-33.7); MCHC 32.5 g/dl (32.0-36.0); MEAN CELL VOLUME 96.5 fl (80-96); MEAN PLT VOLUME 8.7 fl (7.5-11.1); MONO % 10.9 % (3.8-10.2); NEUT % 75.3 % (42.8-82.8); PLATELET COUNT 153 10^3/uL (134-434); RBC 4.44 M/mm3 (3.60-5.2); RDW 15.3 % (11.6-15.6); WHITE BLOOD COUNT 4.6 K/mm3 (4.0-10.0)
[2022-10-24] MEDS: LIPASE/PROTEASE/AMYLASE 36,000 UNIT CAPSULE PO SCH ×3 (08:15→18:02)
[2022-10-24] MEDS: methylPREDNISolone NA SUCC 40 MG/1 ML VIAL IVPUSH SCH ×2 (08:17→21:45)
[2022-10-24 08:21] LABS: POTASSIUM 4.3 mmol/L (3.5-5.1)
[2022-10-24 08:41] LABS: CALCIUM 9.8 mg/dL (8.5-10.1)
[2022-10-24 08:43] LABS: ALBUMIN 3.7 g/dl (3.4-5.0); BLOOD UREA NITROGEN 21.4 mg/dL (7-18); MAGNESIUM 2.3 mg/dL (1.8-2.4)
[2022-10-24 08:46] LABS: BILIRUBIN,TOTAL 1.8 mg/dL (0.2-1); CREATININE 1.1 mg/dL (0.55-1.3); TOT PROT 6.7 g/dl (6.4-8.2)
[2022-10-24] MEDS ORDERED: POLYETHYLENE GLYCOL 3350 255 GM BTL PO ONE (09:03)
[2022-10-24] MEDS: ASPIRIN 81 MG CHEWABLE TABLETS PO SCH (10:00)
[2022-10-24] MEDS: amLODIPine BESYLATE 5 MG TABLET (FP) PO SCH (10:01)
[2022-10-24] MEDS: QUEtiapine FUMARATE 25 MG TABLET PO SCH ×2 (10:01→21:44)
[2022-10-24] MEDS: PANTOPRAZOLE 40 MG TABLET PO SCH ×2 (10:01→21:44)
[2022-10-24] MEDS: DULoxetine HCL 30 MG CAPSULE.DR PO SCH (10:01)
[2022-10-24] MEDS: FUROSEMIDE 40 MG TABLET (FP) PO SCH (10:01)
[2022-10-24] MEDS: HEPARIN NA (PORCINE) 5,000 UNITS/ML 1ML VIAL SQ SCH ×2 (10:09→21:45)
[2022-10-24] MEDS: FLUTICASONE/UMECLIDIN/VILANTER(100-62.5-25 TRELEGY ELLIPTA) INAHLER IH SCH (10:09)
[2022-10-24] MEDS: risperiDONE 1 MG TABLET PO SCH (21:44)
[2022-10-25] MEDS: RIFAXIMIN 550 MG TABLET PO SCH ×2 (06:10→14:07)
[2022-10-25] MEDS: SUCRALFATE 1 GM/10 ML UNIT DOSE CUPS PO SCH ×4 (06:10→23:34)
[2022-10-25] MEDS: POLYETHYLENE GLYCOL (HEALTHYLAX) 3350 17 GM PACKET PO SCH ×3 (06:13→23:33)
[2022-10-25] MEDS: LEVALBUTEROL HCL 0.31 MG/3 ML VIAL.NEB IH SCH ×3 (07:18→20:31)
[2022-10-25] MEDS: LIPASE/PROTEASE/AMYLASE 36,000 UNIT CAPSULE PO SCH ×3 (07:56→18:00)
[2022-10-25 08:01] LABS: POTASSIUM 4.1 mmol/L (3.5-5.1)
[2022-10-25 08:05] LABS: ALBUMIN 3.4 g/dl (3.4-5.0); BLOOD UREA NITROGEN 27.4 mg/dL (7-18); CALCIUM 9.6 mg/dL (8.5-10.1)
[2022-10-25 08:09] LABS: CREATININE 1.1 mg/dL (0.55-1.3)
[2022-10-25 08:10] LABS: BILIRUBIN,TOTAL 1.3 mg/dL (0.2-1); TOT PROT 6.2 g/dl (6.4-8.2)
[2022-10-25] MEDS: DULoxetine HCL 30 MG CAPSULE.DR PO SCH (10:21)
[2022-10-25] MEDS: QUEtiapine FUMARATE 25 MG TABLET PO SCH ×2 (10:21→23:33)
[2022-10-25] MEDS: ASPIRIN 81 MG CHEWABLE TABLETS PO SCH (10:21)
[2022-10-25] MEDS: methylPREDNISolone NA SUCC 40 MG/1 ML VIAL IVPUSH SCH ×2 (10:21→23:34)
[2022-10-25] MEDS: PANTOPRAZOLE 40 MG TABLET PO SCH ×2 (10:21→23:32)
[2022-10-25] MEDS: amLODIPine BESYLATE 5 MG TABLET (FP) PO SCH (10:21)
[2022-10-25] MEDS: HEPARIN NA (PORCINE) 5,000 UNITS/ML 1ML VIAL SQ SCH (10:21)
[2022-10-25] MEDS: FUROSEMIDE 40 MG TABLET (FP) PO SCH (10:21)
[2022-10-25] MEDS: FLUTICASONE/UMECLIDIN/VILANTER(100-62.5-25 TRELEGY ELLIPTA) INAHLER IH SCH (10:22)
[2022-10-25 14:08] LABS: PROTEIN S, FREE 83 % (61-136)
[2022-10-25 15:09] LABS: DRVVT - 38.8 sec (0.0-47.0); HEXAGONAL PHASE PHOSPHOLIPID 4 sec (0-11)
[2022-10-25] MEDS: risperiDONE 1 MG TABLET PO SCH (23:32)
[2022-10-26] MEDS: POLYETHYLENE GLYCOL (HEALTHYLAX) 3350 17 GM PACKET PO SCH ×3 (05:46→21:54)
[2022-10-26] MEDS: SUCRALFATE 1 GM/10 ML UNIT DOSE CUPS PO SCH ×4 (06:10→21:55)
[2022-10-26] MEDS: LIPASE/PROTEASE/AMYLASE 36,000 UNIT CAPSULE PO SCH ×3 (07:58→17:15)
[2022-10-26] MEDS: LEVALBUTEROL HCL 0.31 MG/3 ML VIAL.NEB IH SCH ×3 (08:37→20:26)
[2022-10-26] MEDS: methylPREDNISolone NA SUCC 40 MG/1 ML VIAL IVPUSH SCH ×2 (09:19→21:55)
[2022-10-26] MEDS: QUEtiapine FUMARATE 25 MG TABLET PO SCH ×2 (09:19→21:55)
[2022-10-26] MEDS: DULoxetine HCL 30 MG CAPSULE.DR PO SCH (09:19)
[2022-10-26] MEDS: FLUTICASONE/UMECLIDIN/VILANTER(100-62.5-25 TRELEGY ELLIPTA) INAHLER IH SCH (09:19)
[2022-10-26] MEDS: amLODIPine BESYLATE 5 MG TABLET (FP) PO SCH (09:19)
[2022-10-26] MEDS: PANTOPRAZOLE 40 MG TABLET PO SCH ×2 (09:19→21:55)
[2022-10-26] MEDS: ASPIRIN 81 MG CHEWABLE TABLETS PO SCH (09:19)
[2022-10-26] MEDS: FUROSEMIDE 40 MG TABLET (FP) PO SCH (09:19)
[2022-10-26 20:43] VITALS: BMI 27.4
[2022-10-26] MEDS: risperiDONE 1 MG TABLET PO SCH (21:55)
[2022-10-27] MEDS: POLYETHYLENE GLYCOL (HEALTHYLAX) 3350 17 GM PACKET PO SCH ×3 (05:42→22:16)
[2022-10-27] MEDS: SUCRALFATE 1 GM/10 ML UNIT DOSE CUPS PO SCH ×4 (06:44→22:18)
[2022-10-27] MEDS: LEVALBUTEROL HCL 0.31 MG/3 ML VIAL.NEB IH SCH ×2 (07:32→14:40)
[2022-10-27] MEDS: LIPASE/PROTEASE/AMYLASE 36,000 UNIT CAPSULE PO SCH ×3 (08:20→16:47)
[2022-10-27] MEDS: PANTOPRAZOLE 40 MG TABLET PO SCH ×2 (10:20→22:17)
[2022-10-27] MEDS: methylPREDNISolone NA SUCC 40 MG/1 ML VIAL IVPUSH SCH (10:20)
[2022-10-27] MEDS: amLODIPine BESYLATE 5 MG TABLET (FP) PO SCH (10:21)
[2022-10-27] MEDS: FUROSEMIDE 40 MG TABLET (FP) PO SCH (10:21)
[2022-10-27] MEDS: QUEtiapine FUMARATE 25 MG TABLET PO SCH ×2 (10:21→22:17)
[2022-10-27] MEDS: DULoxetine HCL 30 MG CAPSULE.DR PO SCH (10:21)
[2022-10-27] MEDS: ASPIRIN 81 MG CHEWABLE TABLETS PO SCH (10:21)
[2022-10-27] MEDS: FLUTICASONE/UMECLIDIN/VILANTER(100-62.5-25 TRELEGY ELLIPTA) INAHLER IH SCH (10:22)
[2022-10-27] MEDS: risperiDONE 1 MG TABLET PO SCH (22:18)
[2022-10-28] MEDS: POLYETHYLENE GLYCOL (HEALTHYLAX) 3350 17 GM PACKET PO SCH (05:50)
[2022-10-28 06:02] VITALS: PULSE 64
[2022-10-28] MEDS: SUCRALFATE 1 GM/10 ML UNIT DOSE CUPS PO SCH ×2 (06:39→12:11)
[2022-10-28] MEDS: LIPASE/PROTEASE/AMYLASE 36,000 UNIT CAPSULE PO SCH (07:40)
[2022-10-28] MEDS: FUROSEMIDE 40 MG TABLET (FP) PO SCH (09:36)
[2022-10-28] MEDS: amLODIPine BESYLATE 5 MG TABLET (FP) PO SCH (09:36)
[2022-10-28] MEDS: ASPIRIN 81 MG CHEWABLE TABLETS PO SCH (09:36)
[2022-10-28] MEDS: QUEtiapine FUMARATE 25 MG TABLET PO SCH (09:36)
[2022-10-28] MEDS: PANTOPRAZOLE 40 MG TABLET PO SCH (09:36)
[2022-10-28] MEDS: FLUTICASONE/UMECLIDIN/VILANTER(100-62.5-25 TRELEGY ELLIPTA) INAHLER IH SCH (09:36)
[2022-10-28] MEDS: DULoxetine HCL 30 MG CAPSULE.DR PO SCH (09:36)
[2022-10-28 09:39] VITALS: BP 120/75; RESP 18; TEMP 98.1
[2022-10-28] MEDS ORDERED: predniSONE 20 MG TABLET (UD) PO SCH (10:00)
== END 2022-10-28 12:36 | disposition home or self-care (01) | DRG 391 ==
LOC: JER 19:31 → JERBED 10-18 01:08 → INTOOBSV 10-18 01:08 → J4W 10-18 03:01 → OBSVTOIN 10-20 19:29
PROVIDERS: ADMIT Internal Medicine; ATTEND Family Medicine
DX: K59.09 Other constipation (principal); J96.21 Acute and chronic respiratory failure with hypoxia; I50.32 Chronic diastolic (congestive) heart failure; I24.8 Other forms of acute ischemic heart disease; N17.9 Acute kidney failure, unspecified; R18.8 Other ascites; E87.20 Acidosis, unspecified; D69.6 Thrombocytopenia, unspecified; I11.0 Hypertensive heart disease with heart failure; K74.60 Unspecified cirrhosis of liver; E11.9 Type 2 diabetes mellitus without complications; G20 Parkinson's disease; Z99.81 Dependence on supplemental oxygen; R45.1 Restlessness and agitation
CPT/HCPCS: 36415; 71045-TC-FY; 71250-TC; 74176-TC; 74181-TC; 74240-TC-FY; 76700-TC; 76775-TC; 78226-TC; 80053; 81003; 81240; 81241; 82172; 82272; 82378; 82436; 82550; 82570; 82962; 82977; 83010; 83520; 83605; 83690; 83735; 83883; 84133; 84300; 84443; 84460; 84484; 85025; 85303; 85305; 85306; 85613; 85732; 86038; 86256; 86301; 86304; 86705; 86709; 87340; 87517; 93005; 93010; 94761; 97116-GP; 97161-GP; 99285-25; A9537; G0378; J1644

== ENCOUNTER 2022-11-30 18:58 | Inpatient (IN) | payer OTHER, MEDICARE ==
[2022-11-30] MEDS ORDERED: ALBUTEROL SO4 2.5/IPRATROPIUM 0.5 INH SOL 3 ML VIAL.NEB. NEB ONE ×2 (19:32→19:56)
[2022-11-30] MEDS ORDERED: methylPREDNISolone NA SUCC 125 MG/2 ML VIAL IVPB ONE (19:32)
[2022-11-30] MEDS ORDERED: methylPREDNISolone NA SUCC 125 MG/2 ML VIAL ONE (19:56)
[2022-11-30 20:05] LABS: BASO % 1.1 % (0-2.0); HEMATOCRIT 39.6 % (32.4-45.2); HEMOGLOBIN 12.9 GM/dL (10.7-15.3); LYMPH % 16.9 % (8-40); MCH 30.5 pg (25.7-33.7); MCHC 32.5 g/dl (32.0-36.0); MEAN PLT VOLUME 8.9 fl (7.5-11.1); MONO % 13.5 % (3.8-10.2); NEUT % 67.5 % (42.8-82.8); PLATELET COUNT 121 10^3/uL (134-434); RBC 4.21 M/mm3 (3.60-5.2); RDW 16.1 % (11.6-15.6); WHITE BLOOD COUNT 4.3 K/mm3 (4.0-10.0)
[2022-11-30 20:06] LABS: VENOUS BASE EXCESS 1.2 mmol/L (-2-2); VENOUS O2 SATURATION 45.2 % (70-80); VENOUS PH 7.37 (7.310-7.410)
[2022-11-30 20:21] LABS: CHLORIDE 105 mmol/L (98-107); SODIUM 143 mmol/L (136-145)
[2022-11-30 20:23] LABS: CALCIUM 8.7 mg/dL (8.5-10.1)
[2022-11-30 20:24] LABS: ALBUMIN 3.4 g/dl (3.4-5.0); ANION GAP 9 MMOL/L (8-16); CO2 29 mmol/L (21-32); GLUCOSE,RANDOM 94 mg/dL (74-106); MAGNESIUM 1.9 mg/dL (1.8-2.4)
[2022-11-30 20:27] LABS: BLOOD UREA NITROGEN 24.4 mg/dL (7-18); CREATININE 1.9 mg/dL (0.55-1.3); SGOT/AST 17 U/L (15-37); SGPT/ALT 20 U/L (13-61)
[2022-11-30 20:29] LABS: BILIRUBIN,TOTAL 0.6 mg/dL (0.2-1); INR 1.29 (0.83-1.09); PROTHROMBIN TIME (PATIENT) 14.9 SEC (9.7-13.0); TOT PROT 6.3 g/dl (6.4-8.2)
[2022-11-30 20:30] LABS: ALK PHOS 90 U/L (45-117)
[2022-11-30 20:32] LABS: ACTIVATED PTT 28.3 SECONDS (25.2-36.5); N-TERMINAL BNP 11311.6 pg/ml (5-450)
[2022-11-30] MEDS ORDERED: SODIUM CHLORIDE 0.9% 500 ML INFUS.BAG IV ONE ×2 (20:39→20:53)
[2022-11-30] MEDS ORDERED: ACETAMINOPHEN 1000 MG/100 ML BAG IVPB ONE (20:58)
[2022-11-30] MEDS ORDERED: NITROGLYCERIN SUBLINGUAL 1/150 0.4 MG TAB ONE (21:41)
[2022-11-30] MEDS ORDERED: ACETAMINOPHEN INJECTION 100 ML IVPB ONE (21:41)
[2022-11-30] MEDS: FUROSEMIDE 40 MG/4 ML INJECTABLE VIAL IVPUSH ONE ×2 (22:34→23:00)
[2022-11-30] MEDS ORDERED: FUROSEMIDE 40 MG/4 ML INJECTABLE VIAL ONE (22:34)
[2022-11-30] MEDS: NITROGLYCERIN SUBLINGUAL 1/150 0.4 MG TAB SL ONE ×2 (22:34→22:59)
[2022-11-30] MEDS ORDERED: FAMOTIDINE 20 MG/50 ML IVPB 20 MG/50 ML MG IVPB ONE ×2 (22:45→22:47)
[2022-11-30] MEDS ORDERED: MAG HYDROX/AL HYDROX/SIMETH 30 ML UNIT-DOSE CUP PO ONE (22:45)
[2022-11-30] MEDS ORDERED: MAG HYDROX/AL HYDROX/SIMETH 30 ML UNIT-DOSE CUP ONE (22:47)
[2022-11-30] MEDS ORDERED: HEPARIN NA (PORCINE) 5,000 UNITS/ML 1ML VIAL IVPUSH ONE (23:42)
[2022-11-30] MEDS ORDERED: HEPARIN NA (PORCINE) 5,000 UNITS/ML 1ML VIAL IVPUSH PRN ×2 (23:42)
[2022-12-01] MEDS: HEPARIN INFUSION - 25,000 UNITS/500 ML INFUS.BAG IVPB SCH (00:26)
[2022-12-01] MEDS ORDERED: DOCUSATE SODIUM 100 MG CAPSULE (FP) PO PRN (00:55)
[2022-12-01] MEDS ORDERED: metroNIDAZOLE 250 MG TABLET ONE ×2 (04:11→15:48)
[2022-12-01] MEDS: metroNIDAZOLE 250 MG TABLET PO SCH ×4 (04:11→21:32)
[2022-12-01] MEDS ORDERED: ACETAMINOPHEN 325 MG TABLET (FP) ONE (07:43)
[2022-12-01 07:58] LABS: HEMATOCRIT 38.7 % (32.4-45.2); HEMOGLOBIN 12.6 GM/dL (10.7-15.3); MCH 30.9 pg (25.7-33.7); MCHC 32.5 g/dl (32.0-36.0); MEAN PLT VOLUME 9.3 fl (7.5-11.1); PLATELET COUNT 119 10^3/uL (134-434); RBC 4.08 M/mm3 (3.60-5.2); RDW 15.5 % (11.6-15.6); WHITE BLOOD COUNT 3.3 K/mm3 (4.0-10.0)
[2022-12-01] MEDS: ACETAMINOPHEN 325 MG TABLET (FP) PO PRN (08:10)
[2022-12-01] MEDS: LIPASE/PROTEASE/AMYLASE 36,000 UNIT CAPSULE PO SCH ×3 (09:01→18:23)
[2022-12-01] MEDS ORDERED: amLODIPine BESYLATE 5 MG TABLET (FP) ONE (09:10)
[2022-12-01 09:21] LABS: ANISOCYTOSIS 0; MACROCYTOSIS 0
[2022-12-01] MEDS: amLODIPine BESYLATE 5 MG TABLET (FP) PO SCH (09:39)
[2022-12-01] MEDS ORDERED: LORazepam 2 MG/ML SDV VIAL IVPUSH ONE (10:17)
[2022-12-01] MEDS: FUROSEMIDE 40 MG/4 ML INJECTABLE VIAL IVPUSH SCH (10:32)
[2022-12-01] MEDS ORDERED: ALBUTEROL SO4 2.5/IPRATROPIUM 0.5 INH SOL 3 ML VIAL.NEB. NEB ONE ×3 (12:22→20:33)
[2022-12-01] MEDS: ALBUTEROL SO4 2.5/IPRATROPIUM 0.5 INH SOL 3 ML VIAL.NEB. NEB SCH ×3 (12:30→20:34)
[2022-12-01] MEDS: AMANTADINE HCL 100 MG TABLET PO SCH ×2 (12:31→21:32)
[2022-12-01] MEDS: LORazepam 2 MG/ML SDV VIAL IVPUSH PRN ×2 (14:27→21:20)
[2022-12-01] MEDS ORDERED: QUEtiapine FUMARATE 25 MG TABLET ONE (18:03)
[2022-12-01] MEDS: FLUTICASONE/UMECLIDIN/VILANTER(100-62.5-25 TRELEGY ELLIPTA) INAHLER IH SCH (18:22)
[2022-12-01] MEDS: QUEtiapine FUMARATE 25 MG TABLET PO SCH (18:22)
[2022-12-01] MEDS ORDERED: HEPARIN INFUSION - 25,000 UNITS/500 ML INFUS.BAG IVPB ONE (19:03)
[2022-12-02 00:21] VITALS: BMI 11.7
[2022-12-02] MEDS: HEPARIN INFUSION - 25,000 UNITS/500 ML INFUS.BAG IVPB SCH (00:45)
[2022-12-02] MEDS ORDERED: ACETAMINOPHEN 1000 MG/100 ML BAG IVPB PRN (02:23)
[2022-12-02] MEDS: metroNIDAZOLE 250 MG TABLET PO SCH ×2 (05:56→14:45)
[2022-12-02 08:11] LABS: BASO % 0.6 % (0-2.0); EOS % 0.4 % (0-4.5); HEMATOCRIT 39.2 % (32.4-45.2); HEMOGLOBIN 12.8 GM/dL (10.7-15.3); LYMPH % 21.6 % (8-40); MCH 30.5 pg (25.7-33.7); MCHC 32.7 g/dl (32.0-36.0); MEAN CELL VOLUME 93.4 fl (80-96); MEAN PLT VOLUME 9.2 fl (7.5-11.1); MONO % 14.8 % (3.8-10.2); NEUT % 62.6 % (42.8-82.8); PLATELET COUNT 134 10^3/uL (134-434); RDW 16.3 % (11.6-15.6); WHITE BLOOD COUNT 5.4 K/mm3 (4.0-10.0)
[2022-12-02 08:30] LABS: POTASSIUM 4.4 mmol/L (3.5-5.1)
[2022-12-02 08:38] LABS: ALBUMIN 3.7 g/dl (3.4-5.0); BLOOD UREA NITROGEN 30.1 mg/dL (7-18); CALCIUM 9.5 mg/dL (8.5-10.1); CREATININE 1.6 mg/dL (0.55-1.3)
[2022-12-02 08:40] LABS: TOT PROT 6.5 g/dl (6.4-8.2)
[2022-12-02] MEDS: ALBUTEROL SO4 2.5/IPRATROPIUM 0.5 INH SOL 3 ML VIAL.NEB. NEB SCH ×4 (08:42→20:28)
[2022-12-02 08:45] LABS: BILIRUBIN,TOTAL 0.9 mg/dL (0.2-1)
[2022-12-02] MEDS: LIPASE/PROTEASE/AMYLASE 36,000 UNIT CAPSULE PO SCH ×3 (09:05→18:30)
[2022-12-02] MEDS: QUEtiapine FUMARATE 25 MG TABLET PO SCH ×2 (10:17→22:04)
[2022-12-02] MEDS: AMANTADINE HCL 100 MG TABLET PO SCH (10:19)
[2022-12-02] MEDS: FUROSEMIDE 40 MG/4 ML INJECTABLE VIAL IVPUSH SCH (10:19)
[2022-12-02] MEDS: FLUTICASONE/UMECLIDIN/VILANTER(100-62.5-25 TRELEGY ELLIPTA) INAHLER IH SCH (10:20)
[2022-12-02] MEDS: amLODIPine BESYLATE 5 MG TABLET (FP) PO SCH (10:25)
[2022-12-02] MEDS: LORazepam 2 MG/ML SDV VIAL IVPUSH PRN (15:10)
[2022-12-02] MEDS ORDERED: QUEtiapine FUMARATE 25 MG TABLET PO SCH (21:48)
[2022-12-03] MEDS: LORazepam 2 MG/ML SDV VIAL IVPUSH PRN ×2 (03:23→13:27)
[2022-12-03] MEDS: HEPARIN INFUSION - 25,000 UNITS/500 ML INFUS.BAG IVPB SCH (03:29)
[2022-12-03] MEDS: ALBUTEROL SO4 2.5/IPRATROPIUM 0.5 INH SOL 3 ML VIAL.NEB. NEB SCH ×4 (07:45→20:30)
[2022-12-03 08:55] LABS: HEMATOCRIT 37.5 % (32.4-45.2); MCH 30.3 pg (25.7-33.7); MCHC 32.1 g/dl (32.0-36.0); MEAN CELL VOLUME 94.4 fl (80-96); MEAN PLT VOLUME 9.6 fl (7.5-11.1); PLATELET COUNT 128 10^3/uL (134-434); RBC 3.97 M/mm3 (3.60-5.2); RDW 16.1 % (11.6-15.6); WHITE BLOOD COUNT 5.7 K/mm3 (4.0-10.0)
[2022-12-03] MEDS: LIPASE/PROTEASE/AMYLASE 36,000 UNIT CAPSULE PO SCH ×3 (10:08→18:13)
[2022-12-03] MEDS: FUROSEMIDE 40 MG/4 ML INJECTABLE VIAL IVPUSH SCH (10:26)
[2022-12-03] MEDS: amLODIPine BESYLATE 5 MG TABLET (FP) PO SCH (10:26)
[2022-12-03] MEDS: FLUTICASONE/UMECLIDIN/VILANTER(100-62.5-25 TRELEGY ELLIPTA) INAHLER IH SCH (10:27)
[2022-12-03 19:04] LABS: EPI CELLS 2 /uL (0-25.1); HYALINE CASTS 0 /uL (0-3.1); PH,URINE 5.5 (5.0-8.0); URINE APPEARANCE CLOUDY; URINE BACTERIA >9,000 /uL (0-1359); URINE BILIRUBIN NEGATIVE (NEGATIVE); URINE COLOR YELLOW; URINE GLUCOSE (UA) NEGATIVE (NEGATIVE); URINE KETONE NEGATIVE (NEGATIVE); URINE LEUK ESTERASE 3+ (NEGATIVE); URINE NITRITE NEGATIVE (NEGATIVE); URINE PROTEIN NEGATIVE (NEGATIVE); URINE RBC 48 /uL (0-23.9); URINE UROBILINOGEN 0.2 mg/dL (0.2-1.0); URINE WBC 944 /uL (0-25.8)
[2022-12-03] MEDS: QUEtiapine FUMARATE 25 MG TABLET PO SCH (21:10)
[2022-12-04 07:53] LABS: BASO % 0.4 % (0-2.0); EOS % 1.7 % (0-4.5); HEMATOCRIT 36.8 % (32.4-45.2); HEMOGLOBIN 11.8 GM/dL (10.7-15.3); LYMPH % 15.9 % (8-40); MCH 30.3 pg (25.7-33.7); MCHC 32.1 g/dl (32.0-36.0); MEAN CELL VOLUME 94.5 fl (80-96); MEAN PLT VOLUME 9.2 fl (7.5-11.1); MONO % 17.2 % (3.8-10.2); NEUT % 64.8 % (42.8-82.8); PLATELET COUNT 119 10^3/uL (134-434); WHITE BLOOD COUNT 4.1 K/mm3 (4.0-10.0)
[2022-12-04] MEDS: HEPARIN INFUSION - 25,000 UNITS/500 ML INFUS.BAG IVPB SCH (07:58)
[2022-12-04] MEDS: ALBUTEROL SO4 2.5/IPRATROPIUM 0.5 INH SOL 3 ML VIAL.NEB. NEB SCH ×4 (08:10→20:31)
[2022-12-04 08:20] LABS: POTASSIUM 3.7 mmol/L (3.5-5.1)
[2022-12-04 08:28] LABS: ALBUMIN 3.3 g/dl (3.4-5.0); BLOOD UREA NITROGEN 25.9 mg/dL (7-18); CREATININE 1.4 mg/dL (0.55-1.3)
[2022-12-04 08:29] LABS: BILIRUBIN,TOTAL 1.4 mg/dL (0.2-1); CALCIUM 9.2 mg/dL (8.5-10.1)
[2022-12-04] MEDS: LIPASE/PROTEASE/AMYLASE 36,000 UNIT CAPSULE PO SCH ×3 (08:39→18:16)
[2022-12-04] MEDS: FUROSEMIDE 40 MG/4 ML INJECTABLE VIAL IVPUSH SCH (10:13)
[2022-12-04] MEDS: LORazepam 2 MG/ML SDV VIAL IVPUSH PRN ×2 (10:13→16:59)
[2022-12-04] MEDS: amLODIPine BESYLATE 5 MG TABLET (FP) PO SCH (10:16)
[2022-12-04] MEDS: FLUTICASONE/UMECLIDIN/VILANTER(100-62.5-25 TRELEGY ELLIPTA) INAHLER IH SCH (10:16)
[2022-12-04] MEDS: ENOXAPARIN NA (PORCINE) 80 MG/0.8 ML DISP.SYRIN SQ SCH ×2 (11:58→21:04)
[2022-12-04] MEDS: QUEtiapine FUMARATE 25 MG TABLET PO SCH ×2 (13:38→21:04)
[2022-12-05] MEDS: LORazepam 2 MG/ML SDV VIAL IVPUSH PRN (01:31)
[2022-12-05 07:48] LABS: HEMATOCRIT 36.3 % (32.4-45.2); HEMOGLOBIN 11.8 GM/dL (10.7-15.3); MCH 30.6 pg (25.7-33.7); MCHC 32.4 g/dl (32.0-36.0); MEAN CELL VOLUME 94.5 fl (80-96); MEAN PLT VOLUME 8.8 fl (7.5-11.1); PLATELET COUNT 108 10^3/uL (134-434); RBC 3.84 M/mm3 (3.60-5.2); RDW 15.8 % (11.6-15.6); WHITE BLOOD COUNT 4.2 K/mm3 (4.0-10.0)
[2022-12-05] MEDS: ALBUTEROL SO4 2.5/IPRATROPIUM 0.5 INH SOL 3 ML VIAL.NEB. NEB SCH ×4 (08:09→19:45)
[2022-12-05] MEDS: LIPASE/PROTEASE/AMYLASE 36,000 UNIT CAPSULE PO SCH ×3 (09:42→17:21)
[2022-12-05] MEDS: ENOXAPARIN NA (PORCINE) 80 MG/0.8 ML DISP.SYRIN SQ SCH ×2 (09:52→21:13)
[2022-12-05] MEDS: FUROSEMIDE 40 MG TABLET (FP) PO SCH (09:52)
[2022-12-05] MEDS: PANTOPRAZOLE 40 MG TABLET PO SCH (09:52)
[2022-12-05] MEDS: risperiDONE 1 MG TABLET PO SCH ×2 (09:52→21:13)
[2022-12-05] MEDS: amLODIPine BESYLATE 5 MG TABLET (FP) PO SCH (09:52)
[2022-12-05] MEDS: FLUTICASONE/UMECLIDIN/VILANTER(100-62.5-25 TRELEGY ELLIPTA) INAHLER IH SCH (09:53)
[2022-12-05] MEDS: ACETAMINOPHEN 325 MG TABLET (FP) PO PRN ×2 (12:44→21:13)
[2022-12-06] MEDS: ALBUTEROL SO4 2.5/IPRATROPIUM 0.5 INH SOL 3 ML VIAL.NEB. NEB SCH ×2 (07:45→11:20)
[2022-12-06 07:47] LABS: HEMATOCRIT 36.4 % (32.4-45.2); HEMOGLOBIN 12.2 GM/dL (10.7-15.3); MCH 31.1 pg (25.7-33.7); MCHC 33.5 g/dl (32.0-36.0); MEAN CELL VOLUME 92.8 fl (80-96); MEAN PLT VOLUME 9.2 fl (7.5-11.1); PLATELET COUNT 128 10^3/uL (134-434); RBC 3.92 M/mm3 (3.60-5.2); RDW 15.9 % (11.6-15.6); WHITE BLOOD COUNT 4.5 K/mm3 (4.0-10.0)
[2022-12-06] MEDS: LIPASE/PROTEASE/AMYLASE 36,000 UNIT CAPSULE PO SCH ×3 (08:03→18:01)
[2022-12-06] MEDS: ENOXAPARIN NA (PORCINE) 80 MG/0.8 ML DISP.SYRIN SQ SCH ×2 (10:19→22:40)
[2022-12-06] MEDS: PANTOPRAZOLE 40 MG TABLET PO SCH (10:20)
[2022-12-06] MEDS: FUROSEMIDE 40 MG TABLET (FP) PO SCH (10:20)
[2022-12-06] MEDS: risperiDONE 1 MG TABLET PO SCH ×2 (10:20→22:39)
[2022-12-06] MEDS: FLUTICASONE/UMECLIDIN/VILANTER(100-62.5-25 TRELEGY ELLIPTA) INAHLER IH SCH (10:20)
[2022-12-06] MEDS: amLODIPine BESYLATE 5 MG TABLET (FP) PO SCH (10:20)
[2022-12-06] MEDS: ALBUTEROL SO4 0.083% IH SOL 2.5 MG/3 ML VIAL.NEB. NEB SCH ×2 (14:45→20:05)
[2022-12-07] MEDS: ALBUTEROL SO4 0.083% IH SOL 2.5 MG/3 ML VIAL.NEB. NEB SCH ×3 (06:50→21:01)
[2022-12-07] MEDS: LIPASE/PROTEASE/AMYLASE 36,000 UNIT CAPSULE PO SCH ×3 (09:00→17:36)
[2022-12-07] MEDS: ENOXAPARIN NA (PORCINE) 80 MG/0.8 ML DISP.SYRIN SQ SCH ×2 (10:18→22:03)
[2022-12-07] MEDS: PANTOPRAZOLE 40 MG TABLET PO SCH (10:19)
[2022-12-07] MEDS: amLODIPine BESYLATE 5 MG TABLET (FP) PO SCH (10:19)
[2022-12-07] MEDS: FUROSEMIDE 40 MG TABLET (FP) PO SCH (10:19)
[2022-12-07] MEDS: risperiDONE 1 MG TABLET PO SCH ×2 (10:19→22:03)
[2022-12-07] MEDS: FLUTICASONE/UMECLIDIN/VILANTER(100-62.5-25 TRELEGY ELLIPTA) INAHLER IH SCH (10:20)
[2022-12-07] MEDS: ALPRAZolam 0.25 MG TABLET PO PRN (20:29)
[2022-12-08] MEDS: ALBUTEROL SO4 0.083% IH SOL 2.5 MG/3 ML VIAL.NEB. NEB SCH ×3 (08:04→20:41)
[2022-12-08] MEDS: LIPASE/PROTEASE/AMYLASE 36,000 UNIT CAPSULE PO SCH ×3 (08:24→17:56)
[2022-12-08] MEDS: amLODIPine BESYLATE 5 MG TABLET (FP) PO SCH (09:20)
[2022-12-08] MEDS: FUROSEMIDE 40 MG TABLET (FP) PO SCH (09:20)
[2022-12-08] MEDS: ENOXAPARIN NA (PORCINE) 80 MG/0.8 ML DISP.SYRIN SQ SCH (09:20)
[2022-12-08] MEDS: risperiDONE 1 MG TABLET PO SCH ×2 (09:20→21:36)
[2022-12-08] MEDS: PANTOPRAZOLE 40 MG TABLET PO SCH (09:20)
[2022-12-08] MEDS: FLUTICASONE/UMECLIDIN/VILANTER(100-62.5-25 TRELEGY ELLIPTA) INAHLER IH SCH (09:21)
[2022-12-08] MEDS: ACETAMINOPHEN 325 MG TABLET (FP) PO PRN (12:25)
[2022-12-08] MEDS: ALPRAZolam 0.25 MG TABLET PO PRN (20:07)
[2022-12-08] MEDS: APIXABAN 5 MG TABLET PO SCH (21:35)
[2022-12-09] MEDS: ALBUTEROL SO4 0.083% IH SOL 2.5 MG/3 ML VIAL.NEB. NEB SCH ×2 (07:35→14:40)
[2022-12-09] MEDS: LIPASE/PROTEASE/AMYLASE 36,000 UNIT CAPSULE PO SCH ×2 (08:40→12:58)
[2022-12-09] MEDS: PANTOPRAZOLE 40 MG TABLET PO SCH (10:48)
[2022-12-09] MEDS: amLODIPine BESYLATE 5 MG TABLET (FP) PO SCH (10:48)
[2022-12-09] MEDS: FUROSEMIDE 40 MG TABLET (FP) PO SCH (10:48)
[2022-12-09] MEDS: FLUTICASONE/UMECLIDIN/VILANTER(100-62.5-25 TRELEGY ELLIPTA) INAHLER IH SCH (10:48)
[2022-12-09] MEDS: APIXABAN 5 MG TABLET PO SCH (10:48)
[2022-12-09] MEDS: risperiDONE 1 MG TABLET PO SCH (10:48)
[2022-12-09 12:12] VITALS: RESP 20
[2022-12-09 15:13] VITALS: PULSE 104
[2022-12-09 15:23] LABS: EPI CELLS 1 /uL (0-25.1); HYALINE CASTS 1 /uL (0-3.1); PH,URINE 8.5 (5.0-8.0); URINE APPEARANCE TURBID; URINE BACTERIA >9,000 /uL (0-1359); URINE BILIRUBIN NEGATIVE (NEGATIVE); URINE COLOR YELLOW; URINE GLUCOSE (UA) NEGATIVE (NEGATIVE); URINE KETONE NEGATIVE (NEGATIVE); URINE LEUK ESTERASE 3+ (NEGATIVE); URINE NITRITE NEGATIVE (NEGATIVE); URINE PROTEIN 2+ (NEGATIVE); URINE RBC 39 /uL (0-23.9); URINE WBC 283 /uL (0-25.8)
[2022-12-09 15:56] VITALS: BP 112/83; TEMP 98.6
== END 2022-12-09 17:56 | DRG 175 ==
LOC: JER 18:58 → JERBED 23:57 → J4W 12-02 00:12
PROVIDERS: ADMIT Internal Medicine; ATTEND Family Medicine
DX: I26.94 Multiple subsegmental thrombotic pulmonary emboli without acute cor pulmonale (principal); I50.33 Acute on chronic diastolic (congestive) heart failure; J96.21 Acute and chronic respiratory failure with hypoxia; N17.9 Acute kidney failure, unspecified; I24.8 Other forms of acute ischemic heart disease; I11.0 Hypertensive heart disease with heart failure; K70.30 Alcoholic cirrhosis of liver without ascites; J44.9 Chronic obstructive pulmonary disease, unspecified; E11.9 Type 2 diabetes mellitus without complications; G20 Parkinson's disease; E78.5 Hyperlipidemia, unspecified
CPT/HCPCS: 0241U-QW; 36415; 70450-TC; 71045-TC-FY; 71275-TC; 80048; 80053; 81003; 82272; 82550; 82607; 82803; 83735; 83880; 84443; 84484; 85025; 85027; 85610; 85730; 86780; 87086; 87186; 87635; 93005; 93010; 93306-TC; 93970-TC; 94640; 94660; 97116-GP; 97162-GP; 99291; J1644; Q9967

== ENCOUNTER 2022-12-28 12:10 | Inpatient (IN) | payer OTHER, MEDICARE ==
[2022-12-28] MEDS ORDERED: ALBUTEROL SO4 2.5/IPRATROPIUM 0.5 INH SOL 3 ML VIAL.NEB. NEB ONE ×3 (12:28→13:03)
[2022-12-28] MEDS ORDERED: methylPREDNISolone NA SUCC 125 MG/2 ML VIAL ONE (13:04)
[2022-12-28] MEDS ORDERED: ACETAMINOPHEN 1000 MG/100 ML BAG IVPB ONE (13:13)
[2022-12-28] MEDS ORDERED: ACETAMINOPHEN INJECTION 100 ML IVPB ONE (13:21)
[2022-12-28 13:46] LABS: BASO % 0.7 % (0-2.0); EOS % 0.6 % (0-4.5); HEMATOCRIT 39.8 % (32.4-45.2); HEMOGLOBIN 12.6 GM/dL (10.7-15.3); LYMPH % 21.2 % (8-40); MCH 29.5 pg (25.7-33.7); MCHC 31.8 g/dl (32.0-36.0); MEAN CELL VOLUME 92.9 fl (80-96); MEAN PLT VOLUME 9.4 fl (7.5-11.1); MONO % 15.2 % (3.8-10.2); NEUT % 62.3 % (42.8-82.8); PLATELET COUNT 138 10^3/uL (134-434); RBC 4.28 M/mm3 (3.60-5.2); RDW 16.4 % (11.6-15.6); WHITE BLOOD COUNT 4.4 K/mm3 (4.0-10.0)
[2022-12-28 13:49] LABS: VENOUS BASE EXCESS -0.3 mmol/L (-2-2); VENOUS O2 SATURATION 52.8 % (70-80); VENOUS PCO2 42.9 mmHg (38-52); VENOUS PH 7.382 (7.310-7.410)
[2022-12-28 13:59] LABS: POTASSIUM 4.5 mmol/L (3.5-5.1)
[2022-12-28 14:00] LABS: LACTIC ACID 2.8 mmol/L (0.4-2.0)
[2022-12-28 14:01] LABS: CALCIUM 9.2 mg/dL (8.5-10.1)
[2022-12-28 14:02] LABS: ALBUMIN 3.6 g/dl (3.4-5.0); BLOOD UREA NITROGEN 44.8 mg/dL (7-18)
[2022-12-28] MEDS ORDERED: PIPERACILLIN/TAZOB 3.375 GM 3.375 GM in DEXTROSE 5%-WATER - 50 ML IVPB ONE (14:04)
[2022-12-28] MEDS ORDERED: VANCOMYCIN 1,000 MG in DEXTROSE 5%-WATER - 250 ML IVPB ONE (14:04)
[2022-12-28 14:05] LABS: CREATININE 1.8 mg/dL (0.55-1.3)
[2022-12-28 14:07] LABS: BILIRUBIN,TOTAL 1.2 mg/dL (0.2-1); TOT PROT 6.3 g/dl (6.4-8.2)
[2022-12-28 14:10] LABS: N-TERMINAL BNP 12992.3 pg/ml (5-450)
[2022-12-28] MEDS ORDERED: VANCOMYCIN 1 GRAM (PRE-DOCKED) 1,000 MG/250 ML BAG IVPB ONE (14:13)
[2022-12-28] MEDS ORDERED: PIPERACILLIN/TAZOB 3.375 GM 3.375 GM/50 ML BAG IVPB ONE (14:14)
[2022-12-28] MEDS ORDERED: FUROSEMIDE 40 MG/4 ML INJECTABLE VIAL IVPUSH ONE (14:16)
[2022-12-28] MEDS ORDERED: PIPERACILLIN/TAZOB 2.25 GM 2.25 GM in DEXTROSE 5%-WATER - 50 ML IVPB ONE (14:19)
[2022-12-28] MEDS ORDERED: PIPERACILLIN/TAZOB 2.25 GM 2.25 GM/50 ML BAG IVPB ONE ×2 (14:21→17:50)
[2022-12-28 14:30] LABS: ARTERIAL BLOOD GAS BASE EXCESS 0.7 mmol/L (-2-2); ARTERIAL BLOOD GAS PO2 147.7 mmHg (80-100); ARTERIAL BLOOD GAS pH 7.455 (7.350-7.450)
[2022-12-28 14:41] LABS: ALLENS TEST POSITIVE
[2022-12-28 14:42] LABS: VENT MODE S/T MODE IPAP 10 EP
[2022-12-28] MEDS ORDERED: FUROSEMIDE 40 MG/4 ML INJECTABLE VIAL ONE (14:42)
[2022-12-28] MEDS ORDERED: ALBUTEROL SO4 0.083% IH SOL 2.5 MG/3 ML VIAL.NEB. NEB PRN (15:40)
[2022-12-28] MEDS ORDERED: ACETAMINOPHEN 325 MG TABLET (FP) PO PRN (15:40)
[2022-12-28 17:42] LABS: LACTIC ACID 3.5 mmol/L (0.4-2.0)
[2022-12-28] MEDS: PIPERACILLIN/TAZOB 2.25 GM 2.25 GM in DEXTROSE 5%-WATER - 50 ML IVPB SCH (17:53)
[2022-12-28 22:42] LABS: ALBUMIN 3.4 g/dl (3.4-5.0); BLOOD UREA NITROGEN 43.9 mg/dL (7-18); CALCIUM 9.1 mg/dL (8.5-10.1)
[2022-12-28 22:46] LABS: CREATININE 1.8 mg/dL (0.55-1.3)
[2022-12-29] MEDS: PIPERACILLIN/TAZOB 2.25 GM 2.25 GM in DEXTROSE 5%-WATER - 50 ML IVPB SCH ×2 (02:18→11:31)
[2022-12-29 08:07] LABS: HEMATOCRIT 38.4 % (32.4-45.2); HEMOGLOBIN 12.2 GM/dL (10.7-15.3); MCH 29.3 pg (25.7-33.7); MCHC 31.8 g/dl (32.0-36.0); MEAN CELL VOLUME 92.2 fl (80-96); MEAN PLT VOLUME 9.3 fl (7.5-11.1); PLATELET COUNT 121 10^3/uL (134-434); RBC 4.16 M/mm3 (3.60-5.2); RDW 16.6 % (11.6-15.6); WHITE BLOOD COUNT 3.7 K/mm3 (4.0-10.0)
[2022-12-29] MEDS ORDERED: amLODIPine BESYLATE 5 MG TABLET (FP) PO SCH (10:00)
[2022-12-29] MEDS: PANTOPRAZOLE 40 MG TABLET PO SCH (11:30)
[2022-12-29] MEDS: FUROSEMIDE 40 MG/4 ML INJECTABLE VIAL IVPUSH SCH (11:30)
[2022-12-29] MEDS: dilTIAZem HCL 30 MG TABLET PO SCH ×2 (13:33→22:38)
[2022-12-29] MEDS ORDERED: ALBUTEROL SO4 2.5/IPRATROPIUM 0.5 INH SOL 3 ML VIAL.NEB. NEB PRN (15:52)
[2022-12-30] MEDS: dilTIAZem HCL 30 MG TABLET PO SCH ×3 (06:35→21:11)
[2022-12-30] MEDS: FUROSEMIDE 40 MG/4 ML INJECTABLE VIAL IVPUSH SCH (10:12)
[2022-12-30] MEDS: PANTOPRAZOLE 40 MG TABLET PO SCH (10:12)
[2022-12-30] MEDS: metoPROLOL SUCCINATE 25 MG TAB.SR.24H (FP) PO SCH (15:15)
[2022-12-31] MEDS: dilTIAZem HCL 30 MG TABLET PO SCH ×3 (06:35→21:32)
[2022-12-31] MEDS: metoPROLOL SUCCINATE 25 MG TAB.SR.24H (FP) PO SCH (09:59)
[2022-12-31] MEDS: FUROSEMIDE 40 MG/4 ML INJECTABLE VIAL IVPUSH SCH (09:59)
[2022-12-31] MEDS: PANTOPRAZOLE 40 MG TABLET PO SCH (10:00)
[2022-12-31] MEDS: ENOXAPARIN NA (PORCINE) 80 MG/0.8 ML DISP.SYRIN SQ SCH ×2 (13:50→21:32)
[2022-12-31 15:29] LABS: BASO % 0.7 % (0-2.0); HEMATOCRIT 41.5 % (32.4-45.2); HEMOGLOBIN 13.1 GM/dL (10.7-15.3); LYMPH % 26.1 % (8-40); MCH 29.3 pg (25.7-33.7); MCHC 31.5 g/dl (32.0-36.0); MEAN CELL VOLUME 92.9 fl (80-96); MEAN PLT VOLUME 9.5 fl (7.5-11.1); MONO % 14.1 % (3.8-10.2); NEUT % 58.1 % (42.8-82.8); PLATELET COUNT 142 10^3/uL (134-434); RBC 4.47 M/mm3 (3.60-5.2); RDW 16.3 % (11.6-15.6); WHITE BLOOD COUNT 3.8 K/mm3 (4.0-10.0)
[2022-12-31 15:48] LABS: POTASSIUM 3.7 mmol/L (3.5-5.1)
[2022-12-31 15:51] LABS: ALBUMIN 3.2 g/dl (3.4-5.0); BLOOD UREA NITROGEN 32.3 mg/dL (7-18)
[2022-12-31 15:54] LABS: CREATININE 1.5 mg/dL (0.55-1.3)
[2022-12-31 15:56] LABS: BILIRUBIN,TOTAL 0.9 mg/dL (0.2-1)
[2022-12-31 16:00] LABS: LACTIC ACID 2.6 mmol/L (0.4-2.0)
[2023-01-01] MEDS: dilTIAZem HCL 30 MG TABLET PO SCH (06:40)
[2023-01-01 08:01] LABS: BASO % 0.6 % (0-2.0); EOS % 1.1 % (0-4.5); HEMATOCRIT 40.5 % (32.4-45.2); LYMPH % 32.4 % (8-40); MCH 29.6 pg (25.7-33.7); MCHC 32.1 g/dl (32.0-36.0); MEAN CELL VOLUME 92.1 fl (80-96); MEAN PLT VOLUME 8.7 fl (7.5-11.1); MONO % 15.7 % (3.8-10.2); NEUT % 50.2 % (42.8-82.8); PLATELET COUNT 131 10^3/uL (134-434); RBC 4.39 M/mm3 (3.60-5.2); RDW 16.3 % (11.6-15.6); WHITE BLOOD COUNT 4.6 K/mm3 (4.0-10.0)
[2023-01-01 08:10] LABS: ALBUMIN 3.2 g/dl (3.4-5.0); BLOOD UREA NITROGEN 31.5 mg/dL (7-18); CALCIUM 8.8 mg/dL (8.5-10.1)
[2023-01-01 08:13] LABS: CREATININE 1.4 mg/dL (0.55-1.3)
[2023-01-01 08:15] LABS: BILIRUBIN,TOTAL 1.1 mg/dL (0.2-1); TOT PROT 5.6 g/dl (6.4-8.2)
[2023-01-01] MEDS: ENOXAPARIN NA (PORCINE) 80 MG/0.8 ML DISP.SYRIN SQ SCH ×2 (09:28→21:47)
[2023-01-01] MEDS: PANTOPRAZOLE 40 MG TABLET PO SCH (09:28)
[2023-01-01] MEDS: PIPERACILLIN/TAZOB 2.25 GM 2.25 GM in DEXTROSE 5%-WATER - 50 ML IVPB SCH ×3 (09:48→09:51)
[2023-01-01] MEDS: FUROSEMIDE 40 MG/4 ML INJECTABLE VIAL IVPUSH SCH (12:53)
[2023-01-02 01:58] VITALS: RESP 18
[2023-01-02 09:28] VITALS: BP 107/76; PULSE 97; TEMP 97.8
[2023-01-02] MEDS: PANTOPRAZOLE 40 MG TABLET PO SCH (09:35)
[2023-01-02] MEDS: ENOXAPARIN NA (PORCINE) 80 MG/0.8 ML DISP.SYRIN SQ SCH (09:36)
[2023-01-02] MEDS ORDERED: FUROSEMIDE 20 MG TABLET (FP) PO SCH (10:00)
[2023-01-02 10:10] VITALS: BMI 31.9
[2023-01-02] MEDS ORDERED: metoPROLOL SUCCINATE 25 MG TAB.SR.24H (FP) PO ONE (11:07)
== END 2023-01-02 13:49 | DRG 291 ==
LOC: JER 12:10 → JERBED 13:34 → J4W 20:41
PROVIDERS: ADMIT Family Medicine; ATTEND Family Medicine
DX: I13.0 Hypertensive heart and chronic kidney disease with heart failure and stage 1 through stage 4 chronic kidney disease, or unspecified chronic kidney disease (principal); I50.33 Acute on chronic diastolic (congestive) heart failure; J96.21 Acute and chronic respiratory failure with hypoxia; J18.9 Pneumonia, unspecified organism; E87.20 Acidosis, unspecified; I50.32 Chronic diastolic (congestive) heart failure; N17.9 Acute kidney failure, unspecified; J98.11 Atelectasis; I24.8 Other forms of acute ischemic heart disease; E78.5 Hyperlipidemia, unspecified; J44.9 Chronic obstructive pulmonary disease, unspecified; G20 Parkinson's disease; K59.00 Constipation, unspecified; N18.9 Chronic kidney disease, unspecified; I27.20 Pulmonary hypertension, unspecified; Z99.81 Dependence on supplemental oxygen; K70.30 Alcoholic cirrhosis of liver without ascites; I45.10 Unspecified right bundle-branch block
CPT/HCPCS: 0241U-QW; 36415; 36600; 71045-TC-FY; 80048; 80053; 82803; 83605; 83880; 84484; 85025; 85027; 87040; 93005; 93010; 93306-TC; 94640; 94660; 99285-25